=== PATIENT | male | born 1950 | race Caucasian/White ===

== ENCOUNTER 2020-07-30 04:21 | Inpatient (IN) ==
[2020-07-30] MEDS ORDERED: LORazepam 2 MG/ML VIAL IV ONE (04:34)
[2020-07-30] MEDS: LORazepam 2 MG/ML VIAL IV PRN ×2 (04:49→07:40)
[2020-07-30 05:14] LABS: Basophils # (Auto) 0.05 K/mcL (0.00-0.20); Basophils % (Auto) 0.6 % (0.0-2.0); Eosinophils # (Auto) 0.14 K/mcL (0.00-0.70); Eosinophils % (Auto) 1.5 % (0.0-7.0); Hematocrit 29.9 % (41.0-55.0); Hemoglobin 9.9 g/dL (13.5-16.5); Lymphocytes # (Auto) 1.02 K/mcL (1.50-4.80); Lymphocytes % (Auto) 11.2 % (15.0-49.0); Mean Cell Volume 104.5 fL (80.0-100.0); Mean Corpuscular HGB Conc 33.1 g/dL (31.0-36.0); Monocytes # (Auto) 1.24 K/mcL (0.10-0.90); Monocytes % (Auto) 13.6 % (1.0-12.0); Neutrophils % (Auto) 73.1 % (38.0-78.0); Platelet Count 242 K/mcL (140-440); RBC 2.86 M/mcL (4.50-5.90); Red Cell Distribution Width 15.4 % (11.5-14.5); WBC 9.1 K/mcL (4.5-11.0)
[2020-07-30 05:28] LABS: Alcohol, Blood < 10.0 mg/dL
[2020-07-30 05:32] LABS: ALT/SGPT 32 U/L (<40); AST/SGOT 34 U/L (<40); Albumin 3.8 gm/dL (3.2-5.2); Albumin/Globulin Ratio 0.9 (1.0-2.3); Alkaline Phosphatase 84 U/L (39-117); Bilirubin,Total 0.6 mg/dL (0.1-1.0); Blood Urea Nitrogen 13 mg/dL (8-23); Calcium 9.7 mg/dL (8.6-10.4); Carbon Dioxide 24 mmol/L (22-30); Chloride 101 mmol/L (96-108); Glomerular Filtration Rate 50; Glucose 116 mg/dL (70-105)
[2020-07-30] MEDS ORDERED: ACETAMINOPHEN 325 MG TABLET PO ONE (06:34)
[2020-07-30] MEDS ORDERED: 0.9 % SODIUM CHLORIDE 1,000 ML IV ONE (07:08)
--- NOTE | 2020-07-30 07:08 | Emergency Department Note ---
Alcohol HPI General Chief Complaint: Alcohol Stated Complaint: ETOH withdrawal Time Seen by Provider: 07/30/20 04:31 Source: EMS Mode of arrival: EMS Limitations: no limitations History of Present Illness HPI Narrative: Narrative: This pleasant 69-year-old male was brought by EMS because of feeling weak shaky and believing that he is going through alcohol withdrawals. He has not taken any Librium today. He is not very good at remembering where this came from and why he did not have more. He has a 50-year alcohol history. His last drink was 1 week ago. He is trying to stop drinking. He has been told by multiple people that he needs to stop and so he is considering this. He has had 2 falls. He has not been in inpatient treatments or seeing a detox counselor. He has not seen Dr. Ivey. He has felt the chills and shakes of withdrawals. No sweatiness or fevers. Related Data Home Medications Medication Instructions Recorded Confirmed apixaban 5 mg PO BID 12/04/19 05/23/20 buspirone 20 mg PO DAILY 12/04/19 05/23/20 carvedilol 25 mg PO BID 12/04/19 05/23/20 diltiazem HCl 60 mg PO DAILY 12/04/19 05/23/20 magnesium oxide 400 tab PO DAILY 12/04/19 05/23/20 rosuvastatin 10 mg PO HS 12/04/19 05/23/20 spironolactone 25 mg PO DAILY 12/04/19 05/23/20 Previous Rx's Medication Instructions Recorded albuterol sulfate 2 puff INH Q4HP PRN #1 inhaler 08/04/19 chlordiazepoxide HCl 50 mg PO Q6HP PRN #30 cap 07/20/20 ondansetron 4 mg PO Q6H PRN #30 tab 07/20/20 pantoprazole [Protonix] 40 mg PO BID #30 tab 07/20/20 Allergies Allergy/AdvReac Type Severity Reaction Status Date / Time No Known Drug Allergies Allergy Verified 07/30/20 04:27 Review of Systems ROS ROS Narrative: Narrative: 10 Systems Reviewed - negative except as mentioned above. PFSH Narrative Patient History Narrative: Narrative: Medical/Surgical/Family History All Active Problems (Updated 07/30/20 @ 09:41 by Shemar Durand DO) Syncope (Acute) Epistaxis (Acute) Macrocytosis (Acute) Alcoholism, chronic (Acute) Anemia (Acute) Macrocytosis (Acute) Chronic nausea (Acute) Abdominal pain (Acute) Alcohol withdrawal (Acute) Anemia, macrocytic (Acute) Alcohol withdrawal (Acute) Macrocytosis (Acute) Falls (Acute) Anemia in chronic illness (Acute) Acute pain of left foot (Acute) Chronic anticoagulation (Chronic) Congestive heart failure (Chronic) Atrial fibrillation (Chronic) Essential hypertension (Chronic) Anemia (Chronic) Shortness of breath (Chronic) First degree AV block (Chronic) Hyperlipidemia (Chronic) Overweight (BMI 25.0-29.9) (Chronic) Medical History (Updated 07/30/20 @ 09:41 by Shemar Durand DO) Abdominal pain (Resolved) Anemia (Chronic) Atrial fibrillation (Chronic) Paroxysmal; on Eliquis and diltiazem. Chronic anticoagulation (Chronic) Eliquis (apixaban) Congestive heart failure (Chronic) Essential hypertension (Chronic) Fall (Resolved) First degree AV block (Chronic) Hyperlipidemia (Chronic) Overweight (BMI 25.0-29.9) (Chronic) Pneumonia (Resolved) Shortness of breath (Chronic) Surgical History History of phacoemulsification of cataract of both eyes with intraocular lens implantation (Acute) History of total right hip replacement (Acute) Social History Smoking Status: Former smoker (Denied history of smoking 07/30/2020) Alcohol Intake Frequency: 2+ drinks per day (sometimes large amounts daily 07-19-2020. Admits to a half a liter of [place]ardon[place] per day 07/30/2020) Substance Use: does not use Exam Narrative Narrative: Narrative: General Limitations: no limitations General appearance: Present alert, in no apparent distress, nontoxic and other (Quite shaky.) Head Head: Present atraumatic and normocephalic Eye Eye: Present normal appearance, PERRL and EOMI ENT ENT: Present normal oropharynx and mucous membranes dry Neck Neck: Present trachea midline; Absent lymphadenopathy and thyromegaly Chest Chest: Present symmetric chest wall rise Respiratory Respiratory: Present normal lung sounds bilaterally; Absent respiratory distress, rales/crackles, wheezes, stridor, accessory muscle use and prolonged expiratory phase Cardiovascular Cardiovascular: Present regular rate and normal rhythm; Absent systolic murmur and diastolic murmur Adbominal Abdominal: Present soft; Absent distention, tenderness, guarding, rebound, rigidity, organomegaly and mass Extremities Extremities: Absent pedal edema, pretibial edema, calf tenderness and cyanosis Back Back: Absent CVA tenderness (R), CVA tenderness (L) and spinous process tenderness Neurological Neurological: Present alert and oriented X3 Psychiatric Psychiatric: Present serious and polite; Absent depressed, agitated, anxious and poor eye contact Skin Skin: Present warm (WNL) and dry; Absent cyanosis and pallor Course Vital Signs Vital signs: Vital Signs Pulse Rate 112 H 07/30/20 04:22 Respiratory Rate 20 07/30/20 04:22 Pulse Oximetry (%) 95 07/30/20 04:22 Temperature 99.8 F H 07/30/20 09:01 Pulse Rate 102 H 07/30/20 07:57 Respiratory Rate 21 07/30/20 10:01 Blood Pressure 109/71 07/30/20 10:01 Pulse Oximetry (%) 100 07/30/20 07:57 MDM MDM Narrative Medical decision making narrative: Narrative: 4:32 AM - interviewed and examined. Will do basic labs and provide lorazepam with CIWA following. 7:06 AM - labs include normal white count of 9.1 and similar anemia as to previous with macrocytosis. Lactic acid 1.2 Mildly low potassium of 3.2. Creatinine mildly elevated at 1.4, baseline previously 1.0-1.2. Glucose 116 Normal bili, LFTs, phosphatase. Alcohol level not detectable. B complex and multivitamin orally ordered. (Use of a banana bag is not any bit better and much more expensive than oral replacement of vitamins.) 7:12 AM - less shaky, feeling some better. Obviously is less shaky. But he is slow to move and weak asking for little help. With the elevated creatinine a normal saline liter was previously ordered. Nursing reported some bruises on the lower extremities and ankle. Patient has fallen several times. His home disposition needs to be further evaluated and or medical management of his withdrawal over the next several days. We attempted to call Dr. Ivey's office but no answer and no on-call. I will pass this on a change in shift to Dr. Echeverria for consideration of discussion with her and/or need for inpatient versus outpatient. Lab Data Result diagrams: 07/30/20 04:49 07/30/20 04:49 Labs: Lab Results 07/30/20 07/30/20 07/30/20 Range/Units 04:49 04:49 04:49 WBC 9.1 (4.5-11.0) K/mcL RBC 2.86 L (4.50-5.90) M/mcL Hgb 9.9 L (13.5-16.5) g/dL Hct 29.9 L (41.0-55.0) % MCV 104.5 H (80.0-100.0) fL MCH 34.6 H (26.0-34.0) pg MCHC 33.1 (31.0-36.0) g/dL RDW 15.4 H (11.5-14.5) % Plt Count 242 (140-440) K/mcL MPV 11.0 H (7.4-10.4) fL Neut % (Auto) 73.1 (38.0-78.0) % Lymph % (Auto) 11.2 L (15.0-49.0) % [place] % (Auto) 13.6 H (1.0-12.0) % Eos % (Auto) 1.5 (0.0-7.0) % Baso % (Auto) 0.6 (0.0-2.0) % Lymph # (Auto) 1.02 L (1.50-4.80) K/mcL [place] # (Auto) 1.24 H (0.10-0.90) K/mcL Eos # (Auto) 0.14 (0.00-0.70) K/mcL Baso # (Auto) 0.05 (0.00-0.20) K/mcL Absolute Neutrophils 6.64 (1.80-8.00) K/mcL VBG Lactic Acid 1.2 (0.5-2.0) mmol/L Sodium 136 (133-145) mmol/L Potassium 3.2 L (3.3-5.1) mmol/L Chloride 101 (96-108) mmol/L Carbon Dioxide 24 (22-30) mmol/L Anion Gap 11.0 (8.0-16.0) BUN 13 (8-23) mg/dL Creatinine 1.4 H (0.7-1.2) mg/dL GFR Calculation 50 Glucose 116 H (70-105) mg/dL Calcium 9.7 (8.6-10.4) mg/dL Total Bilirubin 0.6 (0.1-1.0) mg/dL AST 34 (<40) U/L ALT 32 (<40) U/L Alkaline Phosphatase 84 (39-117) U/L Total Protein 7.8 (5.9-8.4) gm/dL Albumin 3.8 (3.2-5.2) gm/dL Globulin 4.0 H (2.2-3.7) gm/dL Albumin/Globulin Ratio 0.9 L (1.0-2.3) Ethyl Alcohol (<0.010) gm/dL 07/30/20 Range/Units 04:49 WBC (4.5-11.0) K/mcL RBC (4.50-5.90) M/mcL Hgb (13.5-16.5) g/dL Hct (41.0-55.0) % MCV (80.0-100.0) fL MCH (26.0-34.0) pg MCHC (31.0-36.0) g/dL RDW (11.5-14.5) % Plt Count (140-440) K/mcL MPV (7.4-10.4) fL Neut % (Auto) (38.0-78.0) % Lymph % (Auto) (15.0-49.0) % [place] % (Auto) (1.0-12.0) % Eos % (Auto) (0.0-7.0) % Baso % (Auto) (0.0-2.0) % Lymph # (Auto) (1.50-4.80) K/mcL [place] # (Auto) (0.10-0.90) K/mcL Eos # (Auto) (0.00-0.70) K/mcL Baso # (Auto) (0.00-0.20) K/mcL Absolute Neutrophils (1.80-8.00) K/mcL VBG Lactic Acid (0.5-2.0) mmol/L Sodium (133-145) mmol/L Potassium (3.3-5.1) mmol/L Chloride (96-108) mmol/L Carbon Dioxide (22-30) mmol/L Anion Gap (8.0-16.0) BUN (8-23) mg/dL Creatinine (0.7-1.2) mg/dL GFR Calculation Glucose (70-105) mg/dL Calcium (8.6-10.4) mg/dL Total Bilirubin (0.1-1.0) mg/dL AST (<40) U/L ALT (<40) U/L Alkaline Phosphatase (39-117) U/L Total Protein (5.9-8.4) gm/dL Albumin (3.2-5.2) gm/dL Globulin (2.2-3.7) gm/dL Albumin/Globulin Ratio (1.0-2.3) Ethyl Alcohol 0.010 H (<0.010) gm/dL Discharge Plan Patient/Caregiver Discharge Instructions Pt seen by RECRUITMENT COORDINATOR/PA only: No Clinical Impression: Macrocytosis, Anemia in chronic illness, Acute pain of left foot Alcohol withdrawal Qualifiers: Complication of substance-induced condition: with unspecified complication Qualified Code(s): F10.239 - Alcohol dependence with withdrawal, unspecified Falls Qualifiers: Encounter type: initial encounter Qualified Code(s): W19.XXXA - Unspecified fall, initial encounter Patient Disposition: Still a Patient Follow up with: Marcy Carey MD [Primary Care Provider] - Prescriptions: No Action albuterol sulfate 1 PUFF inhaler 2 puff INH Q4HP PRN (Reason: short of breath, cough, wheeze) Qty: 1 RF: 0 carvedilol 25 MG tablet 25 mg PO BID RF: 0 spironolactone 25 MG tablet 25 mg PO DAILY RF: 0 buspirone 10 MG tablet 20 mg PO DAILY RF: 0 diltiazem HCl 180 MG tablet extended release 24 hr 60 mg PO DAILY RF: 0 rosuvastatin 10 MG tablet 10 mg PO HS RF: 0 apixaban 5 MG tablet 5 mg PO BID RF: 0 magnesium oxide 200 MG tablet 400 tab PO DAILY RF: 0 chlordiazepoxide HCl 25 mg capsule 50 mg PO Q6HP PRN (Reason: alcohol withdrawal) Qty: 30 RF: 0 pantoprazole [Protonix] 40 mg tablet,delayed release (DR/EC) 40 mg PO BID Qty: 30 RF: 0 ondansetron 4 mg tablet,disintegrating 4 mg PO Q6H PRN (Reason: nausea and vomiting) Qty: 30 RF: 0
[2020-07-30] MEDS ORDERED: MULTIVIT,THER IRON,CA,FA & MIN 1 TABLET PO ONE (08:33)
[2020-07-30] MEDS ORDERED: VITAMIN B COMPLEX 1 CAPSULE PO SCH (09:00)
[2020-07-30] MEDS ORDERED: PRENATAL VIT/IRON FUMARATE/FA 1 TAB TABLET PO SCH (09:00)
--- NOTE | 2020-07-30 09:38 | XRay Report ---
CLINICAL INFORMATION: swelling red pain midfoot dorsum; hx falls COMPARISON: None. FINDINGS: No fracture or other focal osseous abnormality identified. Severe first MTP and mild first through fifth interphalangeal degenerative change noted. Mild pes planus noted. There is moderate diffuse soft tissue swelling in the forefoot and midfoot. IMPRESSION: Moderate diffuse soft tissue swelling in the forefoot and midfoot likely represents cellulitis. No evidence of osteomyelitis. No fracture or other posttraumatic change Severe first MTP degeneration. Mild degenerative change first through fifth interphalangeal joints Interpreted and Authenticated by: Arpan Tsai 07/30/20
--- NOTE | 2020-07-30 11:41 | XRay Report ---
CLINICAL INFORMATION: Weakness COMPARISON: 08/14/2019 TECHNIQUE: Portable FINDINGS: The heart size, mediastinum and pulmonary vessels are unremarkable. The lungs are clear. There are no effusions. The bones and soft tissues are within normal limits. IMPRESSION: Normal chest. Interpreted and Authenticated by: Arpan Tsai 07/30/20
[2020-07-30 12:04] LABS: Appearance,Urine CLEAR (Clear); Bilirubin,Urine Negative (Negative); Color,Urine YELLOW; Culture Indicated,Urine No; Glucose,Urine (UA) Negative (Negative); Ketones,Urine Negative (Negative); Leukocyte Esterase,Urine Negative /ug (Negative); Mucus,Urine FEW /hpf; Nitrate,Urine Negative (Negative); Protein,Urine Negative (Negative); Specific Gravity,Urine 1.019 (1.000-1.035); Urine Blood Negative (Negative); Urine Hyaline Cast 3 /lph (0-2); Urine RBC 2 /hpf (0-3); Urine Squamous Epithelial Cell < 1 /hpf (0-4); Urine WBC 0 /hpf (0-4); Urobilinogen,Urine Negative
--- NOTE | 2020-07-30 13:04 | Cat Scan Report ---
CLINICAL INFORMATION: Confusion - decreased mental status COMPARISON: 07/19/2020 TECHNIQUE: 2.5 mm helical slices were obtained in the skull base to vertex. Following reconstruction, axial reformatted images were reviewed at bone and parenchymal windows. The exam was performed using radiation dose optimization techniques including, but not limited to, automated exposure control, adjustment of the mA and/or kV according to patient size and use of iterative reconstruction technique. FINDINGS: The ventricles, sulci, fissures, and cisterns are symmetrically enlarged compatible with mild age-related atrophy. No extra-axial fluid collections are identified. Mild patchy chronic ischemic changes, in the deep cerebral white matter, expected for age and stable.. There is no evidence of hemorrhage, mass effect, or edema. Bone windows show no osseous abnormality. IMPRESSION: Mild atrophy and chronic ischemic changes in the deep cerebral white matter - expected for age and stable.. Interpreted and Authenticated by: Arpan Tsai 07/30/20
--- NOTE | 2020-07-30 14:04 | Emergency Department Note ---
Alcohol HPI General Chief Complaint: Alcohol Stated Complaint: ETOH withdrawal Time Seen by Provider: 07/30/20 04:31 Source: EMS Mode of arrival: EMS Limitations: no limitations History of Present Illness HPI Narrative: Narrative: I took over care of this patient at [address] Durand Related Data Home Medications Medication Instructions Recorded Confirmed apixaban 5 mg PO BID 12/04/19 05/23/20 buspirone 20 mg PO DAILY 12/04/19 05/23/20 carvedilol 25 mg PO BID 12/04/19 05/23/20 diltiazem HCl 60 mg PO DAILY 12/04/19 05/23/20 magnesium oxide 400 tab PO DAILY 12/04/19 05/23/20 rosuvastatin 10 mg PO HS 12/04/19 05/23/20 spironolactone 25 mg PO DAILY 12/04/19 05/23/20 Previous Rx's Medication Instructions Recorded albuterol sulfate 2 puff INH Q4HP PRN #1 inhaler 08/04/19 chlordiazepoxide HCl 50 mg PO Q6HP PRN #30 cap 07/20/20 ondansetron 4 mg PO Q6H PRN #30 tab 07/20/20 pantoprazole [Protonix] 40 mg PO BID #30 tab 07/20/20 Allergies Allergy/AdvReac Type Severity Reaction Status Date / Time No Known Drug Allergies Allergy Verified 07/30/20 04:27 Review of Systems ROS ROS Narrative: Narrative: [facility] Narrative Patient History Narrative: Narrative: Medical/Surgical/Family History All Active Problems (Updated 07/30/20 @ 09:41 by Shemar Durand DO) Syncope (Acute) Epistaxis (Acute) Macrocytosis (Acute) Alcoholism, chronic (Acute) Anemia (Acute) Macrocytosis (Acute) Chronic nausea (Acute) Abdominal pain (Acute) Alcohol withdrawal (Acute) Anemia, macrocytic (Acute) Alcohol withdrawal (Acute) Macrocytosis (Acute) Falls (Acute) Anemia in chronic illness (Acute) Acute pain of left foot (Acute) Chronic anticoagulation (Chronic) Congestive heart failure (Chronic) Atrial fibrillation (Chronic) Essential hypertension (Chronic) Anemia (Chronic) Shortness of breath (Chronic) First degree AV block (Chronic) Hyperlipidemia (Chronic) Overweight (BMI 25.0-29.9) (Chronic) Medical History (Updated 07/30/20 @ 09:41 by Shemar Durand DO) Abdominal pain (Resolved) Anemia (Chronic) Atrial fibrillation (Chronic) Paroxysmal; on Eliquis and diltiazem. Chronic anticoagulation (Chronic) Eliquis (apixaban) Congestive heart failure (Chronic) Essential hypertension (Chronic) Fall (Resolved) First degree AV block (Chronic) Hyperlipidemia (Chronic) Overweight (BMI 25.0-29.9) (Chronic) Pneumonia (Resolved) Shortness of breath (Chronic) Surgical History History of phacoemulsification of cataract of both eyes with intraocular lens implantation (Acute) History of total right hip replacement (Acute) Social History Smoking Status: Former smoker (Denied history of smoking 07/30/2020) Alcohol Intake Frequency: 2+ drinks per day (sometimes large amounts daily 07-19-2020. Admits to a half a liter of [place] per day 07/30/2020) Substance Use: does not use Exam Narrative Narrative: Narrative: General Limitations: no limitations Course Vital Signs Vital signs: Vital Signs Pulse Rate 112 H 07/30/20 04:22 Respiratory Rate 20 07/30/20 04:22 Pulse Oximetry (%) 95 07/30/20 04:22 Temperature 99.8 F H 07/30/20 10:15 Pulse Rate 93 H 07/30/20 13:31 Respiratory Rate 19 07/30/20 13:31 Blood Pressure 138/83 07/30/20 13:31 Pulse Oximetry (%) 97 07/30/20 13:31 MDM MDM Narrative Medical decision making narrative: Narrative: I did discuss his case with Dr. Carey his primary and both Dr. Carey and the are anxious for him to be admitted and sent to a senior living. I then discussed the case with the hospitalist who will admit him to the hospital. Our director social service had evaluated him for admission first and felt he did qualify for admission. Lab Data Lab results reviewed: Yes I reviewed the patient's lab results. Lab results narrative: Lab work was unremarkable and Covid testing was negative Result diagrams: 07/30/20 04:49 07/30/20 04:49 Labs: Lab Results 07/30/20 07/30/20 07/30/20 Range/Units 04:49 04:49 04:49 WBC 9.1 (4.5-11.0) K/mcL RBC 2.86 L (4.50-5.90) M/mcL Hgb 9.9 L (13.5-16.5) g/dL Hct 29.9 L (41.0-55.0) % MCV 104.5 H (80.0-100.0) fL MCH 34.6 H (26.0-34.0) pg MCHC 33.1 (31.0-36.0) g/dL RDW 15.4 H (11.5-14.5) % Plt Count 242 (140-440) K/mcL MPV 11.0 H (7.4-10.4) fL Neut % (Auto) 73.1 (38.0-78.0) % Lymph % (Auto) 11.2 L (15.0-49.0) % [place] % (Auto) 13.6 H (1.0-12.0) % Eos % (Auto) 1.5 (0.0-7.0) % Baso % (Auto) 0.6 (0.0-2.0) % Lymph # (Auto) 1.02 L (1.50-4.80) K/mcL [place] # (Auto) 1.24 H (0.10-0.90) K/mcL Eos # (Auto) 0.14 (0.00-0.70) K/mcL Baso # (Auto) 0.05 (0.00-0.20) K/mcL Absolute Neutrophils 6.64 (1.80-8.00) K/mcL VBG Lactic Acid 1.2 (0.5-2.0) mmol/L Sodium 136 (133-145) mmol/L Potassium 3.2 L (3.3-5.1) mmol/L Chloride 101 (96-108) mmol/L Carbon Dioxide 24 (22-30) mmol/L Anion Gap 11.0 (8.0-16.0) BUN 13 (8-23) mg/dL Creatinine 1.4 H (0.7-1.2) mg/dL GFR Calculation 50 Glucose 116 H (70-105) mg/dL Calcium 9.7 (8.6-10.4) mg/dL Total Bilirubin 0.6 (0.1-1.0) mg/dL AST 34 (<40) U/L ALT 32 (<40) U/L Alkaline Phosphatase 84 (39-117) U/L Total Protein 7.8 (5.9-8.4) gm/dL Albumin 3.8 (3.2-5.2) gm/dL Globulin 4.0 H (2.2-3.7) gm/dL Albumin/Globulin Ratio 0.9 L (1.0-2.3) Urine Color Urine Appearance (Clear) Urine pH (5.0-9.0) Ur Specific [place] (1.000-1.035) Urine Protein (Negative) mg/dL Urine Glucose (UA) (Negative) mg/dL Urine Ketones (Negative) mg/dL Urine Occult Blood (Negative) mg/dL Urine Nitrate (Negative) Urine Bilirubin (Negative) mg/dL Urine Urobilinogen mg/dL Ur Leukocyte Esterase (Negative) /ug Urine RBC (0-3) /hpf Urine WBC (0-4) /hpf Ur Squamous Epith Cells (0-4) /hpf Urine Bacteria (0) /hpf Hyaline Casts (0-2) /lph Urine Mucus (None) /hpf Ur Culture Indicated? Ethyl Alcohol (<0.010) gm/dL 07/30/20 07/30/20 Range/Units 04:49 10:20 WBC (4.5-11.0) K/mcL RBC (4.50-5.90) M/mcL Hgb (13.5-16.5) g/dL Hct (41.0-55.0) % MCV (80.0-100.0) fL MCH (26.0-34.0) pg MCHC (31.0-36.0) g/dL RDW (11.5-14.5) % Plt Count (140-440) K/mcL MPV (7.4-10.4) fL Neut % (Auto) (38.0-78.0) % Lymph % (Auto) (15.0-49.0) % [place] % (Auto) (1.0-12.0) % Eos % (Auto) (0.0-7.0) % Baso % (Auto) (0.0-2.0) % Lymph # (Auto) (1.50-4.80) K/mcL [place] # (Auto) (0.10-0.90) K/mcL Eos # (Auto) (0.00-0.70) K/mcL Baso # (Auto) (0.00-0.20) K/mcL Absolute Neutrophils (1.80-8.00) K/mcL VBG Lactic Acid (0.5-2.0) mmol/L Sodium (133-145) mmol/L Potassium (3.3-5.1) mmol/L Chloride (96-108) mmol/L Carbon Dioxide (22-30) mmol/L Anion Gap (8.0-16.0) BUN (8-23) mg/dL Creatinine (0.7-1.2) mg/dL GFR Calculation Glucose (70-105) mg/dL Calcium (8.6-10.4) mg/dL Total Bilirubin (0.1-1.0) mg/dL AST (<40) U/L ALT (<40) U/L Alkaline Phosphatase (39-117) U/L Total Protein (5.9-8.4) gm/dL Albumin (3.2-5.2) gm/dL Globulin (2.2-3.7) gm/dL Albumin/Globulin Ratio (1.0-2.3) Urine Color Yellow Urine Appearance Clear (Clear) Urine pH 5.0 (5.0-9.0) Ur Specific [place] 1.019 (1.000-1.035) Urine Protein Negative (Negative) mg/dL Urine Glucose (UA) Negative (Negative) mg/dL Urine Ketones Negative (Negative) mg/dL Urine Occult Blood Negative (Negative) mg/dL Urine Nitrate Negative (Negative) Urine Bilirubin Negative (Negative) mg/dL Urine Urobilinogen Negative mg/dL Ur Leukocyte Esterase Negative (Negative) /ug Urine RBC 2 (0-3) /hpf Urine WBC 0 (0-4) /hpf Ur Squamous Epith Cells < 1 (0-4) /hpf Urine Bacteria None (0) /hpf Hyaline Casts 3 H (0-2) /lph Urine Mucus Few A (None) /hpf Ur Culture Indicated? No Ethyl Alcohol 0.010 H (<0.010) gm/dL Radiology Data Radiology results reviewed: Yes I reviewed the patient's radiology results. Radiology results narrative: Chest x-ray was negative CT scan of head shows age- related atrophy and chronic ischemic change Discharge Plan Patient/Caregiver Discharge Instructions Pt seen by ASSEMBLER CARDS AND ANNOUNCEMENTS/PA only: No Clinical Impression: Alcohol withdrawal, Macrocytosis, Falls, Anemia in chronic illness, Acute pain of left foot Patient Disposition: er [facility] Follow up with: Marcy Carey MD [Primary Care Provider] - Prescriptions: No Action albuterol sulfate 1 PUFF inhaler 2 puff INH Q4HP PRN (Reason: short of breath, cough, wheeze) Qty: 1 RF: 0 carvedilol 25 MG tablet 25 mg PO BID RF: 0 spironolactone 25 MG tablet 25 mg PO DAILY RF: 0 buspirone 10 MG tablet 20 mg PO DAILY RF: 0 diltiazem HCl 180 MG tablet extended release 24 hr 60 mg PO DAILY RF: 0 rosuvastatin 10 MG tablet 10 mg PO HS RF: 0 apixaban 5 MG tablet 5 mg PO BID RF: 0 magnesium oxide 200 MG tablet 400 tab PO DAILY RF: 0 chlordiazepoxide HCl 25 mg capsule 50 mg PO Q6HP PRN (Reason: alcohol withdrawal) Qty: 30 RF: 0 pantoprazole [Protonix] 40 mg tablet,delayed release (DR/EC) 40 mg PO BID Qty: 30 RF: 0 ondansetron 4 mg tablet,disintegrating 4 mg PO Q6H PRN (Reason: nausea and vomiting) Qty: 30 RF: 0
--- NOTE | 2020-07-30 14:24 | Internal Med History&Physical ---
HPI History of Present Illness Patient information: Note initiated : 07/30/20 at 2:24 pm Service Date, if different from initiated Date: [] Patient: José Manuel Centeno 69 y/o M admitted on for ETOH Withdrawal. Chief Complaint: [generalized weakness and falls] History of present illness: Mr. Centeno is a 69 year old male with a history of hypertension, afib (on eliquis), congestive heart failure, alcohol use disorder who presents to the ED for generalized weakness and recent falls in the setting of alcohol withdrawal. The patient recently injured his left foot but doesn't remember how. No acute fracture identified on xray. CT head was negative for acute changes. The patient was recently started on librium to help with alcohol withdrawal symptoms. In the ED the patient is too weak to get out of bed. Per report from the ED doc his family have been trying to get the patient into a SNF. Constitutional Constitutional: Present lethargy; Absent chills and fever(s) Cardiovascular Cardiovascular: Absent chest pain and chest pain with activity Respiratory Respiratory: Absent cough and dyspnea on exertion Gastrointestinal Gastrointestinal: Absent abdominal pain Musculoskeletal Additional comments: left foot pain Integumentary Integumentary: Absent new lesions Neurological Neurological: Present abnormal gait Psychiatric Additional comments: feels like he is withdrawaling from alcohol PFSH PFSH All Active Problems (Updated 07/30/20 @ 09:41 by Shemar Durand DO) Syncope (Acute) Epistaxis (Acute) Macrocytosis (Acute) Alcoholism, chronic (Acute) Anemia (Acute) Macrocytosis (Acute) Chronic nausea (Acute) Abdominal pain (Acute) Alcohol withdrawal (Acute) Anemia, macrocytic (Acute) Alcohol withdrawal (Acute) Macrocytosis (Acute) Falls (Acute) Anemia in chronic illness (Acute) Acute pain of left foot (Acute) Chronic anticoagulation (Chronic) Congestive heart failure (Chronic) Atrial fibrillation (Chronic) Essential hypertension (Chronic) Anemia (Chronic) Shortness of breath (Chronic) First degree AV block (Chronic) Hyperlipidemia (Chronic) Overweight (BMI 25.0-29.9) (Chronic) Medical History (Updated 07/30/20 @ 09:41 by Shemar Durand DO) Abdominal pain (Resolved) Anemia (Chronic) Atrial fibrillation (Chronic) Paroxysmal; on Eliquis and diltiazem. Chronic anticoagulation (Chronic) Eliquis (apixaban) Congestive heart failure (Chronic) Essential hypertension (Chronic) Fall (Resolved) First degree AV block (Chronic) Hyperlipidemia (Chronic) Overweight (BMI 25.0-29.9) (Chronic) Pneumonia (Resolved) Shortness of breath (Chronic) Surgical History History of phacoemulsification of cataract of both eyes with intraocular lens implantation (Acute) History of total right hip replacement (Acute) Social History smoking status: Former smoker (Denied history of smoking 07/30/2020) alcohol intake frequency: 2+ drinks per day (sometimes large amounts daily 07-19-2020. Admits to a half a liter of [place] per day 07/30/2020) substance use type: does not use MEDS/ALLERGIES Home Medications and Allergies Home Medications Medication Instructions Recorded Confirmed Type albuterol sulfate 2 puff INH Q4HP PRN #1 inhaler 08/04/19 05/23/20 Rx apixaban 5 mg PO BID 12/04/19 07/30/20 History buspirone 20 mg PO QAM 12/04/19 07/30/20 History carvedilol 25 mg PO BID 12/04/19 07/30/20 History magnesium oxide 400 tab PO DAILY 12/04/19 07/30/20 History rosuvastatin 10 mg PO HS 12/04/19 07/30/20 History spironolactone 25 mg PO DAILY 12/04/19 07/30/20 History chlordiazepoxide HCl 50 mg PO Q6HP PRN #30 cap 07/20/20 07/30/20 Rx ondansetron 4 mg PO Q6H PRN #30 tab 07/20/20 07/30/20 Rx diltiazem HCl 60 mg PO DAILY 07/30/20 07/30/20 History omeprazole 40 mg PO BID 07/30/20 07/30/20 History Allergies Allergy/AdvReac Type Severity Reaction Status Date / Time No Known Drug Allergies Allergy Verified 07/30/20 04:27 EXAM Constitutional Vitals: Temp Pulse Resp BP Pulse Ox 99.8 F H 93 H 19 138/83 97 07/30/20 10:15 07/30/20 13:31 07/30/20 13:31 07/30/20 13:31 07/30/20 13:31 Head Head exam: Present atraumatic and normal inspection Eye Eye exam: Present normal appearance; Absent scleral icterus Neck Neck exam: Present full ROM; Absent lymphadenopathy and tenderness Respiratory Respiratory exam: Absent accessory muscle use and respiratory distress Cardiovascular Cardiovascular exam: Present normal rate and rhythm GI/Abdominal GI/Abdominal exam: Present soft; Absent tenderness Extremities Exam Additional comments: Left foot edema and tenderness to palpation. Neurological Exam Neurological exam: Present alert and CN II-XII intact Psychiatric Psychiatric exam: Absent agitated and anxious Skin Skin exam: Present normal color and warm DATA Data Completed and Pending Labs: Labs from last 24 hours 07/30/20 07/30/20 07/30/20 10:20 04:49 04:49 WBC RBC Hgb Hct MCV MCH MCHC RDW Plt Count MPV Neut % (Auto) Lymph % (Auto) [place] % (Auto) Eos % (Auto) Baso % (Auto) Lymph # (Auto) [place] # (Auto) Eos # (Auto) Baso # (Auto) Absolute Neutrophils VBG Lactic Acid Sodium Potassium Chloride Carbon Dioxide Anion Gap BUN Creatinine GFR Calculation Glucose Calcium Magnesium 1.7 Total Bilirubin AST ALT Alkaline Phosphatase Total Protein Albumin Globulin Albumin/Globulin Ratio Urine Color Yellow Urine Appearance Clear Urine pH 5.0 Ur Specific [place] 1.019 Urine Protein Negative Urine Glucose (UA) Negative Urine Ketones Negative Urine Occult Blood Negative Urine Nitrate Negative Urine Bilirubin Negative Urine Urobilinogen Negative Ur Leukocyte Esterase Negative Urine RBC 2 Urine WBC 0 Ur Squamous Epith Cells < 1 Urine Bacteria None Hyaline Casts 3 H Urine Mucus Few A Ur Culture Indicated? No Ethyl Alcohol 0.010 H 07/30/20 07/30/20 07/30/20 04:49 04:49 04:49 WBC 9.1 RBC 2.86 L Hgb 9.9 L Hct 29.9 L MCV 104.5 H MCH 34.6 H MCHC 33.1 RDW 15.4 H Plt Count 242 MPV 11.0 H Neut % (Auto) 73.1 Lymph % (Auto) 11.2 L [place] % (Auto) 13.6 H Eos % (Auto) 1.5 Baso % (Auto) 0.6 Lymph # (Auto) 1.02 L [place] # (Auto) 1.24 H Eos # (Auto) 0.14 Baso # (Auto) 0.05 Absolute Neutrophils 6.64 VBG Lactic Acid 1.2 Sodium 136 Potassium 3.2 L Chloride 101 Carbon Dioxide 24 Anion Gap 11.0 BUN 13 Creatinine 1.4 H GFR Calculation 50 Glucose 116 H Calcium 9.7 Magnesium Total Bilirubin 0.6 AST 34 ALT 32 Alkaline Phosphatase 84 Total Protein 7.8 Albumin 3.8 Globulin 4.0 H Albumin/Globulin Ratio 0.9 L Urine Color Urine Appearance Urine pH Ur Specific [place] Urine Protein Urine Glucose (UA) Urine Ketones Urine Occult Blood Urine Nitrate Urine Bilirubin Urine Urobilinogen Ur Leukocyte Esterase Urine RBC Urine WBC Ur Squamous Epith Cells Urine Bacteria Hyaline Casts Urine Mucus Ur Culture Indicated? 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 He was found to be in alcohol withdrawal and generally weak. The patient recently fell and injured his left foot-no acute fractures seen on xray. He does not recall how he injured his foot. CT head in the ED did not show any acute changes. The patient also had an acute kidney injury. #Acute kidney injury-likely prerenal #Alcohol withdrawal #Left foot injury w/ edema-no acute fracture on xray #Severe generalized weakness #Chronic macrocytic anemia-likely d/t alcohol use #Paroxysmal atrial fibrillation-currently in sinus rhythm #Congestive heart failure-stable, unknown LV EF #Hypokalemia #Hypertension PLAN -IV fluid, follow renal function -CIWA protocol, ativan PRN, vitamin supplementation, high dose thiamine IV -follow and replace electrolytes a needed -monitor left foot for improvement, if no improvement consider MRI -Tylenol PRN -resume home meds when doses confirmed Time Spent With Patient Time: Total time spent is greater than 50% in coordination of care (as documented) at patient's floor/unit and/or counseling patient:
[2020-07-30] MEDS ORDERED: 0.9 % SODIUM CHLORIDE 500 ML IV ONE (14:45)
[2020-07-30] MEDS ORDERED: ONDANSETRON 4 MG/2 ML VIAL IV PRN (15:20)
[2020-07-30] MEDS: THIAMINE 300 MG in 0.9 % SODIUM CHLORIDE 50 ML IV SCH ×2 (16:22→20:19)
[2020-07-30] MEDS ORDERED: POTASSIUM CHLORIDE 20 MEQ TABLET PO ONE (18:24)
[2020-07-30] MEDS: DOCUSATE SODIUM 100 MG CAPSULE PO SCH (20:15)
[2020-07-30] MEDS: SENNOSIDES 1 TABLET PO SCH (20:15)
[2020-07-30] MEDS: 0.9 % SODIUM CHLORIDE 10 ML SYRINGE IV SCH ×2 (20:15→20:19)
[2020-07-30] MEDS ORDERED: 0.9 % SODIUM CHLORIDE 10 ML SYRINGE IV SCH (22:00)
[2020-07-30] MEDS: LORazepam 1 MG TABLET PO PRN (23:06)
[2020-07-31] MEDS: 0.9 % SODIUM CHLORIDE 10 ML SYRINGE IV SCH ×3 (04:15→20:22)
[2020-07-31 06:11] LABS: Basophils # (Auto) 0.04 K/mcL (0.00-0.20); Basophils % (Auto) 0.5 % (0.0-2.0); Eosinophils # (Auto) 0.16 K/mcL (0.00-0.70); Hematocrit 27.9 % (41.0-55.0); Hemoglobin 9.2 g/dL (13.5-16.5); Lymphocytes # (Auto) 1.16 K/mcL (1.50-4.80); Lymphocytes % (Auto) 14.3 % (15.0-49.0); Mean Cell Volume 103.7 fL (80.0-100.0); Mean Platelet Volume 10.5 fL (7.4-10.4); Monocytes # (Auto) 0.86 K/mcL (0.10-0.90); Monocytes % (Auto) 10.6 % (1.0-12.0); Neutrophils % (Auto) 72.6 % (38.0-78.0); Platelet Count 241 K/mcL (140-440); RBC 2.69 M/mcL (4.50-5.90); WBC 8.1 K/mcL (4.5-11.0)
[2020-07-31 07:02] LABS: ALT/SGPT 25 U/L (<40); AST/SGOT 27 U/L (<40); Albumin 3.3 gm/dL (3.2-5.2); Albumin/Globulin Ratio 0.9 (1.0-2.3); Alkaline Phosphatase 81 U/L (39-117); Bilirubin,Direct 0.3 mg/dL (<0.3); Bilirubin,Total 0.6 mg/dL (0.1-1.0); Blood Urea Nitrogen 12 mg/dL (8-23); Calcium 8.9 mg/dL (8.6-10.4); Carbon Dioxide 21 mmol/L (22-30); Chloride 105 mmol/L (96-108); Globulin 3.7 gm/dL (2.2-3.7); Glomerular Filtration Rate 60; Glucose 105 mg/dL (70-105); Lactate Dehydrogenase 189 U/L (135-225); Phosphorous 2.4 mg/dL (2.5-4.5); Triglycerides 104 mg/dL (<150); Uric Acid 8.6 mg/dL (2.5-8.0)
[2020-07-31] MEDS: THIAMINE 300 MG in 0.9 % SODIUM CHLORIDE 50 ML IV SCH ×3 (08:34→20:21)
[2020-07-31] MEDS: DOCUSATE SODIUM 100 MG CAPSULE PO SCH ×2 (08:34→20:27)
[2020-07-31] MEDS: FOLIC ACID/VITAMIN B COMP W-C 1 TAB TABLET PO SCH (08:34)
[2020-07-31] MEDS ORDERED: MAGNESIUM SULFATE 2 GM/50 ML BAG IV ONE (09:59)
[2020-07-31] MEDS: LORazepam 1 MG TABLET PO PRN ×2 (12:29→20:26)
--- NOTE | 2020-07-31 18:42 | Internal Med Progress Note ---
SUBJECTIVE Subjective Patient information: Note initiated : 07/31/20 at 6:39 pm Service Date, if different from initiated Date: [] Patient: José Manuel Centeno 69 y/o M admitted on 07/30/20 for ETOH Withdrawal. Chief Complaint: [] Interval history: Mr. Centeno is a 69 year old male with a history of hypertension, afib (on eliquis), congestive heart failure, alcohol use disorder who presents to the ED for generalized weakness and recent falls in the setting of alcohol withdrawal. The patient recently injured his left foot but doesn't remember how. No acute fracture identified on xray. CT head was negative for acute changes. The patient was recently started on librium to help with alcohol withdrawal symptoms. In the ED the patient is too weak to get out of bed. Per report from the ED doc his family have been trying to get the patient into a SNF. 07/31 Mild withdrawal symptoms, the patient is severely physically deconditioned. Constitutional Vitals: Vital Signs Temp Pulse Resp BP Pulse Ox 99.0 F 103 H 20 137/78 97 07/31/20 12:00 07/31/20 12:00 07/31/20 12:00 07/31/20 12:00 07/31/20 12:00 Period Temp Pulse Resp BP Sys/[place] Pulse Ox Last 24 Hr 97.7 F-100.4 F 90-112 20-22 137-172/78-88 95-97 Intake and Output 07/31/20 07/31/20 07/31/20 05:59 13:59 21:59 Intake Total 250 403 53 Output Total 650 300 Balance -400 103 53 Weight 95.98 kg Patient Weight 08/01/20 05:59 Weight 95.98 kg Intake & Output: Intake & Output 07/31/20 07/31/20 07/31/20 05:59 13:59 21:59 Intake Total 250 403 53 Output Total 650 300 Balance -400 103 53 Weight 95.98 kg Intake: IV 103 53 Vitamin B1 300 mg In Sodium 53 53 Chloride 0.9% 50 ml @ 50 mls/hr IV TID [facility] Rx#:[id number] Oral 250 300 Output: Void Amount 650 300 Other: Meal Lunch Percent of Meal Consumed 100% Feeding Ability Needs Supervision Urine Appearance Clear Clear Urine Color Bright Yellow Light [place] Additional findings Additional findings: Head: Atraumatic, normal inspection. Eyes: normal appearance, no scleral icterus. Neck: full ROM Respiratory: no respiratory distress. Cardiovascular: normal rate and rhythm, S1, S2. GI/Abdominal: soft, nontender, no guarding. Extremities: full range of motion, nontender. Neurological: CN II-XII intact, intact motor, intact sensation. Psychiatric: depressed mood. Skin: warm, normal color OBJ DATA Labs CBC & Chem 7: 07/31/20 05:30 07/31/20 05:30 Labs: Abnormal Lab Results 07/31/20 07/31/20 07/30/20 05:30 05:30 10:20 RBC 2.69 L Hgb 9.2 L Hct 27.9 L MCV 103.7 H MCH 34.2 H RDW 15.0 H MPV 10.5 H Lymph % (Auto) 14.3 L [place] % (Auto) Lymph # (Auto) 1.16 L [place] # (Auto) Potassium Carbon Dioxide 21 L Creatinine Glucose Uric Acid 8.6 H Phosphorus 2.4 L Direct Bilirubin 0.3 H GGT 195 H Globulin Albumin/Globulin Ratio 0.9 L Hyaline Casts 3 H Urine Mucus Few A Ethyl Alcohol 07/30/20 07/30/20 07/30/20 04:49 04:49 04:49 RBC 2.86 L Hgb 9.9 L Hct 29.9 L MCV 104.5 H MCH 34.6 H RDW 15.4 H MPV 11.0 H Lymph % (Auto) 11.2 L [place] % (Auto) 13.6 H Lymph # (Auto) 1.02 L [place] # (Auto) 1.24 H Potassium 3.2 L Carbon Dioxide Creatinine 1.4 H Glucose 116 H Uric Acid Phosphorus Direct Bilirubin GGT Globulin 4.0 H Albumin/Globulin Ratio 0.9 L Hyaline Casts Urine Mucus Ethyl Alcohol 0.010 H Meds: Medications Acetaminophen (Tylenol) 650 mg PO Q6HP PRN; Protocol PRN Reason: Per Pain Protocol/Fever > 101 Docusate Sodium (Colace) 100 mg PO BID [facility] Last Admin: 07/31/20 08:34 Dose: 100 mg Documented by: Thiamine HCl 300 mg/ Sodium (Chloride) 53 mls @ 50 mls/hr IV TID [facility] Stop: 08/02/20 10:04 Last Infusion: 07/31/20 16:31 Dose: Infused Documented by: Lorazepam (Ativan) 2 mg PO Q2HP PRN PRN Reason: CIWA-A >6 or HR >100 Last Admin: 07/31/20 12:29 Dose: 2 mg Documented by: Multivit/Ca Carb/B Cmplx/FA/Prenat (Diatx) 1 tab PO DAILY [facility] Last Admin: 07/31/20 08:34 Dose: 1 tab Documented by: Ondansetron HCl (Zofran) 4 mg IV Q6HP PRN PRN Reason: Nausea And Vomiting Senna (Senokot) 2 tab PO HS [facility] Last Admin: 07/30/20 20:15 Dose: Not Given Documented by: Sodium Chloride (Saline Flush) 10 ml IV Q8 [facility] Last Admin: 07/31/20 15:00 Dose: 10 ml Documented by: A/P Narrative A/P Narrative: ASSESSMENT: 69 year old male with HTN, afib (on eliquis), congestive heart failure (LV EF unknown%), 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 He was found to be in alcohol withdrawal and generally weak. The patient recently fell and injured his left foot-no acute fractures seen on xray. He does not recall how he injured his foot. CT head in the ED did not show any acute changes. The patient also had an acute kidney injury. #Fevers of unknown cause -UA clean -chest xray clear -possible related to left foot edema -possibly viral vs other etiology #Alcohol withdrawal-mild #Acute kidney injury-resolving after IV fluid #Severe physical deconditioning-suspect related to chronic alcohol use #Left foot injury w/ edema-no acute fracture on xray #Chronic macrocytic anemia-likely d/t alcohol use #Paroxysmal atrial fibrillation-currently sinus rhythm, on eliquis #Congestive heart failure-stable, unknown LV EF #Hypokalemia-resolved #Hypertension-stable #Hyperlipidemia PLAN -CIWA protocol, ativan PRN, vitamin supplementation, high dose thiamine IV -blood cultures, CRP, procalcitonin, COVID PCR -low threshold to start abx -follow and replace electrolytes a needed -monitor H/H on eliquis -TSH -Vit B12, folate -Iron studies -Ammonia -Tylenol PRN -resume home meds except HCTZ, spironolactone, cardizem #PT/OT following -DVT prophylaxis: on eliquis. -Dispo: likely SNF Time Spent With Patient Time: Total time spent is greater than 50% in coordination of care (as documented) at patient's floor/unit and/or counseling patient: QUALITY VTE Deep Vein Thrombosis/Pulmonary Embolism Present on Admission: No
[2020-07-31] MEDS ORDERED: ALBUTEROL SULFATE 200 PUFF INHALER INH PRN (18:55)
[2020-07-31] MEDS: ACETAMINOPHEN 325 MG TABLET PO PRN (18:59)
[2020-07-31] MEDS ORDERED: ONDANSETRON 4 MG ODT TABLET PO PRN (19:08)
[2020-07-31] MEDS ORDERED: THIAMINE 100 MG/ML VIAL ONE (20:24)
[2020-07-31] MEDS: CARVEDILOL 12.5 MG TABLET PO SCH (20:27)
[2020-07-31] MEDS: OMEPRAZOLE 20 MG CAPSULE PO SCH (20:27)
[2020-07-31] MEDS: APIXABAN 5 MG TABLET PO SCH (20:28)
[2020-07-31] MEDS: ATORVASTATIN 20 MG TABLET PO SCH (20:28)
[2020-07-31] MEDS: SENNOSIDES 1 TABLET PO SCH (20:28)
[2020-07-31] MEDS ORDERED: ROSUVASTATIN 10 MG TABLET PO SCH (21:00)
[2020-08-01 00:51] LABS: CRP,High Sensitivity 171.9 mg/L (1.0-3.0)
[2020-08-01] MEDS ORDERED: VANCOMYCIN PER PHARMACY IV SCH (06:58)
[2020-08-01 07:59] LABS: Basophils # (Auto) 0.04 K/mcL (0.00-0.20); Basophils % (Auto) 0.4 % (0.0-2.0); Eosinophils # (Auto) 0.19 K/mcL (0.00-0.70); Eosinophils % (Auto) 2.1 % (0.0-7.0); Hematocrit 26.3 % (41.0-55.0); Hemoglobin 8.5 g/dL (13.5-16.5); Lymphocytes # (Auto) 0.97 K/mcL (1.50-4.80); Lymphocytes % (Auto) 10.7 % (15.0-49.0); Mean Cell Volume 104.8 fL (80.0-100.0); Mean Corpuscular HGB Conc 32.3 g/dL (31.0-36.0); Mean Platelet Volume 10.8 fL (7.4-10.4); Monocytes # (Auto) 0.91 K/mcL (0.10-0.90); Neutrophils % (Auto) 76.8 % (38.0-78.0); Platelet Count 275 K/mcL (140-440); RBC 2.51 M/mcL (4.50-5.90); Red Cell Distribution Width 15.2 % (11.5-14.5); WBC 9.1 K/mcL (4.5-11.0)
[2020-08-01 08:18] LABS: ALT/SGPT 21 U/L (<40); AST/SGOT 21 U/L (<40); Albumin/Globulin Ratio 0.8 (1.0-2.3); Alkaline Phosphatase 83 U/L (39-117); Bilirubin,Direct 0.3 mg/dL (<0.3); Bilirubin,Total 0.6 mg/dL (0.1-1.0); Blood Urea Nitrogen 14 mg/dL (8-23); Calcium 9.1 mg/dL (8.6-10.4); Carbon Dioxide 22 mmol/L (22-30); Chloride 105 mmol/L (96-108); Globulin 3.9 gm/dL (2.2-3.7); Glomerular Filtration Rate 60; Glucose 107 mg/dL (70-105); Lactate Dehydrogenase 183 U/L (135-225); Phosphorous 3.2 mg/dL (2.5-4.5); Triglycerides 106 mg/dL (<150)
[2020-08-01] MEDS ORDERED: LORazepam 2 MG/ML VIAL IV ONE (08:27)
[2020-08-01] MEDS: OMEPRAZOLE 20 MG CAPSULE PO SCH ×2 (08:28→17:07)
[2020-08-01] MEDS: busPIRone 5 MG TABLET PO SCH (08:28)
[2020-08-01] MEDS: DOCUSATE SODIUM 100 MG CAPSULE PO SCH ×2 (08:28→20:56)
[2020-08-01 08:29] LABS: Ferritin 189.2 ng/mL (30.0-400.0); Thyroid Stimulating Hormone 3.87 uIU/mL (0.27-5.01)
[2020-08-01] MEDS: CARVEDILOL 12.5 MG TABLET PO SCH ×2 (08:29→17:07)
[2020-08-01] MEDS: APIXABAN 5 MG TABLET PO SCH ×2 (08:29→20:56)
[2020-08-01] MEDS: 0.9 % SODIUM CHLORIDE 10 ML SYRINGE IV SCH ×3 (08:29→20:57)
[2020-08-01] MEDS: FOLIC ACID/VITAMIN B COMP W-C 1 TAB TABLET PO SCH (08:29)
[2020-08-01] MEDS: THIAMINE 300 MG in 0.9 % SODIUM CHLORIDE 50 ML IV SCH ×3 (09:22→20:56)
[2020-08-01] MEDS: VANCOMYCIN 1,500 MG in 0.9 % SODIUM CHLORIDE 500 ML IV SCH (10:54)
--- NOTE | 2020-08-01 11:41 | Internal Med Progress Note ---
SUBJECTIVE Subjective Patient information: Note initiated : 08/01/20 at 11:37 am Service Date, if different from initiated Date: [] Patient: José Manuel Centeno 69 y/o M admitted on 07/30/20 for ETOH Withdrawal. Chief Complaint: [] Interval history: Mr. Centeno is a 69 year old male with a history of hypertension, afib (on eliquis), congestive heart failure, alcohol use disorder who presents to the ED for generalized weakness and recent falls in the setting of alcohol withdrawal. The patient recently injured his left foot but doesn't remember how. No acute fracture identified on xray. CT head was negative for acute changes. The patient was recently started on librium to help with alcohol withdrawal symptoms. In the ED the patient is too weak to get out of bed. Per report from the ED doc his family have been trying to get the patient into a SNF. 07/31 Mild withdrawal symptoms, the patient is severely physically deconditioned. Constitutional Vitals: Vital Signs Temp Pulse Resp BP Pulse Ox 98.1 F 76 18 130/70 94 08/01/20 07:17 08/01/20 08:00 08/01/20 07:17 08/01/20 07:17 08/01/20 07:17 Period Temp Pulse Resp BP Sys/[place] Pulse Ox Last 24 Hr 98.1 F-101.2 F 75-110 18-24 120-151/67-88 94-100 Intake and Output 07/31/20 08/01/20 08/01/20 21:59 05:59 13:59 Intake Total 506 50 53 Output Total 225 200 Balance 281 -150 53 Weight 90.9 kg Intake & Output: Intake & Output 07/31/20 08/01/20 08/01/20 21:59 05:59 13:59 Intake Total 506 50 53 Output Total 225 200 Balance 281 -150 53 Weight 90.9 kg Intake: IV 106 53 Vitamin B1 300 mg In Sodium 106 53 Chloride 0.9% 50 ml @ 50 mls/hr IV TID [facility] Rx#:[id number] Oral 400 50 Output: Void Amount 225 200 Other: Urine Appearance Clear Clear Urine Color [place] Urine Odor Strong Additional findings Additional findings: Head: Atraumatic, normal inspection. Eyes: normal appearance, no scleral icterus. Neck: full ROM Respiratory: no respiratory distress. Cardiovascular: normal rate and rhythm, S1, S2. GI/Abdominal: soft, nontender, no guarding. Extremities: full range of motion but very weak, left foot caster warm and edematous. Neurological: CN II-XII intact, very weak but moves all commands Psychiatric: depressed mood, Skin: warm, normal color OBJ DATA Labs CBC & Chem 7: 08/01/20 06:01 08/01/20 06:01 Labs: Abnormal Lab Results 08/01/20 08/01/20 08/01/20 06:01 06:01 06:01 RBC Hgb Hct MCV MCH RDW MPV Lymph % (Auto) [place] % (Auto) Lymph # (Auto) [place] # (Auto) Potassium Carbon Dioxide Creatinine Glucose 107 H Uric Acid Phosphorus Iron 18 L TIBC 222 L Transferrin % Sat 8 L Direct Bilirubin 0.3 H GGT 174 H Ammonia 15 L C-React Prot High Sens Albumin 3.0 L Globulin 3.9 H Albumin/Globulin Ratio 0.8 L Vitamin B12 1411.0 H Procalcitonin Hyaline Casts Urine Mucus Ethyl Alcohol 08/01/20 07/31/20 07/31/20 06:01 19:25 19:25 RBC 2.51 L Hgb 8.5 L Hct 26.3 L MCV 104.8 H MCH RDW 15.2 H MPV 10.8 H Lymph % (Auto) 10.7 L [place] % (Auto) Lymph # (Auto) 0.97 L [place] # (Auto) 0.91 H Potassium Carbon Dioxide Creatinine Glucose Uric Acid Phosphorus Iron TIBC Transferrin % Sat Direct Bilirubin GGT Ammonia C-React Prot High Sens 171.9 H Albumin Globulin Albumin/Globulin Ratio Vitamin B12 Procalcitonin 0.27 H Hyaline Casts Urine Mucus Ethyl Alcohol 07/31/20 07/31/20 07/30/20 05:30 05:30 10:20 RBC 2.69 L Hgb 9.2 L Hct 27.9 L MCV 103.7 H MCH 34.2 H RDW 15.0 H MPV 10.5 H Lymph % (Auto) 14.3 L [place] % (Auto) Lymph # (Auto) 1.16 L [place] # (Auto) Potassium Carbon Dioxide 21 L Creatinine Glucose Uric Acid 8.6 H Phosphorus 2.4 L Iron TIBC Transferrin % Sat Direct Bilirubin 0.3 H GGT 195 H Ammonia C-React Prot High Sens Albumin Globulin Albumin/Globulin Ratio 0.9 L Vitamin B12 Procalcitonin Hyaline Casts 3 H Urine Mucus Few A Ethyl Alcohol 07/30/20 07/30/20 07/30/20 04:49 04:49 04:49 RBC 2.86 L Hgb 9.9 L Hct 29.9 L MCV 104.5 H MCH 34.6 H RDW 15.4 H MPV 11.0 H Lymph % (Auto) 11.2 L [place] % (Auto) 13.6 H Lymph # (Auto) 1.02 L [place] # (Auto) 1.24 H Potassium 3.2 L Carbon Dioxide Creatinine 1.4 H Glucose 116 H Uric Acid Phosphorus Iron TIBC Transferrin % Sat Direct Bilirubin GGT Ammonia C-React Prot High Sens Albumin Globulin 4.0 H Albumin/Globulin Ratio 0.9 L Vitamin B12 Procalcitonin Hyaline Casts Urine Mucus Ethyl Alcohol 0.010 H Meds: Medications Acetaminophen (Tylenol) 650 mg PO Q6HP PRN; Protocol PRN Reason: Per Pain Protocol/Fever > 101 Last Admin: 07/31/20 18:59 Dose: 650 mg Documented by: Albuterol Sulfate (Ventolin) 2 puff INH Q4HP PRN PRN Reason: short of breath, cough, wheeze Apixaban (Eliquis) 5 mg PO BID [facility] Last Admin: 08/01/20 08:29 Dose: 5 mg Documented by: Atorvastatin Calcium (Lipitor) 20 mg PO HS [facility] Last Admin: 07/31/20 20:28 Dose: 20 mg Documented by: Buspirone HCl (Buspar) 20 mg PO QAM [facility] Last Admin: 08/01/20 08:28 Dose: 20 mg Documented by: [facility] Last Admin: 08/01/20 08:29 Dose: 25 mg Documented by: Docusate Sodium (Colace) 100 mg PO BID [facility] Last Admin: 08/01/20 08:28 Dose: 100 mg Documented by: Thiamine HCl 300 mg/ Sodium (Chloride) 53 mls @ 50 mls/hr IV TID [facility] Stop: 08/02/20 10:04 Last Infusion: 08/01/20 10:54 Dose: Infused Documented by: Vancomycin HCl 1,500 mg/ (Sodium Chloride) 500 mls @ 333.3 mls/hr IV Q24H [facility] Last Admin: 08/01/20 10:54 Dose: 333.3 mls/hr Documented by: Lorazepam (Ativan) 2 mg PO Q2HP PRN PRN Reason: CIWA-A >6 or HR >100 Last Admin: 07/31/20 20:26 Dose: 2 mg Documented by: Multivit/Ca Carb/B Cmplx/FA/Prenat (Diatx) 1 tab PO DAILY [facility] Last Admin: 08/01/20 08:29 Dose: 1 tab Documented by: Omeprazole (Prilosec) 40 mg PO BIDAC [facility] Last Admin: 08/01/20 08:28 Dose: 40 mg Documented by: Ondansetron HCl (Zofran) 4 mg IV Q6HP PRN PRN Reason: Nausea And Vomiting Ondansetron HCl (Zofran Odt) 4 mg PO Q6HP PRN PRN Reason: nausea and vomiting Senna (Senokot) 2 tab PO HS [facility] Last Admin: 07/31/20 20:28 Dose: 2 tab Documented by: Sodium Chloride (Saline Flush) 10 ml IV Q8 [facility] Last Admin: 08/01/20 08:29 Dose: 10 ml Documented by: Vancomycin HCl (Vancomycin Per Pharmacy) 1 order IV UD [facility]; Protocol A/P Narrative A/P Narrative: ASSESSMENT: 69 year old male with HTN, afib (on eliquis), congestive heart failure (LV EF unknown%), 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 He was found to be in alcohol withdrawal and generally weak. The patient recently fell and injured his left foot-no acute fractures seen on xray. He does not recall how he injured his foot. CT head in the ED did not show any acute changes. The patient also had an acute kidney injury on admission that improved with IV fluid.. #Fevers of unknown cause -CRP 172 -UA clean -chest xray clear -possible related to left foot edema -possibly viral vs other etiology including malignancy #Severe physical deconditioning and generalized weakness-suspect related to chronic alcohol use but could also d/t an undiagnosed medical/neurologic disease #Alcohol withdrawal-mild #Acute kidney injury-resolving after IV fluid #Left foot injury w/ edema-no acute fracture on xray #Chronic macrocytic anemia-suspect d/t alcohol use but could be other medical disease #Paroxysmal atrial fibrillation-currently sinus rhythm, on eliquis #Congestive heart failure-stable, unknown LV EF #Hypokalemia-resolved #Hypertension-stable #Hyperlipidemia PLAN -CIWA protocol, ativan PRN, vitamin supplementation, high dose thiamine IV -Vancomycin IV per pharmacy -pending blood cultures -MRI foot pending -follow and replace electrolytes a needed -monitor H/H on eliquis -Tylenol PRN -home meds except HCTZ, spironolactone, cardizem -PT/OT following -DVT prophylaxis: on eliquis. -Dispo: likely SNF Time Spent With Patient Time: Total time spent is greater than 50% in coordination of care (as documented) at patient's floor/unit and/or counseling patient: QUALITY VTE Deep Vein Thrombosis/Pulmonary Embolism Present on Admission: No
--- NOTE | 2020-08-01 14:45 | Internal Med Progress Note ---
SUBJECTIVE Subjective Patient information: Note initiated : 08/01/20 at 2:35 pm Service Date, if different from initiated Date: [] Patient: José Manuel Centeno 69 y/o M admitted on 07/30/20 for ETOH Withdrawal. Chief Complaint: [] Interval history: Mr. Centeno is a 69 year old male with a history of hypertension, afib (on eliquis), congestive heart failure, alcohol use disorder who presents to the ED for generalized weakness and recent falls in the setting of alcohol withdrawal. The patient recently injured his left foot but doesn't remember how. No acute fracture identified on xray. CT head was negative for acute changes. The patient was recently started on librium to help with alcohol withdrawal symptoms. In the ED the patient is too weak to get out of bed. Per report from the ED doc his family have been trying to get the patient into a SNF. 07/31 Mild withdrawal symptoms, the patient is severely physically deconditioned. 08/01 fevers last night, left foot edema, mri pending. 08/02 Constitutional Vitals: Vital Signs Temp Pulse Resp BP Pulse Ox 98.1 F 76 18 130/70 94 08/01/20 12:00 08/01/20 12:00 08/01/20 12:00 08/01/20 12:00 08/01/20 12:00 Period Temp Pulse Resp BP Sys/Valencia Pulse Ox Last 24 Hr 98.1 F-101.2 F 75-110 18-24 120-151/67-88 94-100 Intake and Output 08/01/20 08/01/20 08/01/20 05:59 13:59 21:59 Intake Total 50 553 Output Total 200 Balance -150 553 Intake & Output: Intake & Output 08/01/20 08/01/20 08/01/20 05:59 13:59 21:59 Intake Total 50 553 Output Total 200 Balance -150 553 Intake: IV 553 Vitamin B1 300 mg In Sodium 53 Chloride 0.9% 50 ml @ 50 mls/hr IV TID [facility] Rx#:[id number] Vancomycin 1,500 mg In Sodium 500 Chloride 0.9% 500 ml @ 333.3 mls/hr IV Q24H [facility] Rx#: [id number] Oral 50 Output: Void Amount 200 Other: Urine Appearance Clear Urine Color [place] Exam: General: Alert, Awake, No acute Distress Eyes/N/T: EOMI, Head/Neck: neck supple, CV: RRR, No murmurs, Pulm: Clear b/l, no wheezing/rhonchi/rales Abd: soft, nontender, +BS x4 Ext: no clubbing/cyanosis. Left foot edema/tender/warm Neuro: Alert, no focal deficits, moves all extremities, Skin: warm/dry OBJ DATA Labs CBC & Chem 7: 08/01/20 06:01 08/01/20 06:01 Labs: Abnormal Lab Results 08/01/20 08/01/20 08/01/20 06:01 06:01 06:01 RBC Hgb Hct MCV MCH RDW MPV Lymph % (Auto) [place] % (Auto) Lymph # (Auto) [place] # (Auto) Potassium Carbon Dioxide Creatinine Glucose 107 H Uric Acid Phosphorus Iron 18 L TIBC 222 L Transferrin % Sat 8 L Direct Bilirubin 0.3 H GGT 174 H Ammonia 15 L C-React Prot High Sens Albumin 3.0 L Globulin 3.9 H Albumin/Globulin Ratio 0.8 L Vitamin B12 1411.0 H Procalcitonin Hyaline Casts Urine Mucus Ethyl Alcohol 08/01/20 07/31/20 07/31/20 06:01 19:25 19:25 RBC 2.51 L Hgb 8.5 L Hct 26.3 L MCV 104.8 H MCH RDW 15.2 H MPV 10.8 H Lymph % (Auto) 10.7 L [place] % (Auto) Lymph # (Auto) 0.97 L [place] # (Auto) 0.91 H Potassium Carbon Dioxide Creatinine Glucose Uric Acid Phosphorus Iron TIBC Transferrin % Sat Direct Bilirubin GGT Ammonia C-React Prot High Sens 171.9 H Albumin Globulin Albumin/Globulin Ratio Vitamin B12 Procalcitonin 0.27 H Hyaline Casts Urine Mucus Ethyl Alcohol 07/31/20 07/31/20 07/30/20 05:30 05:30 10:20 RBC 2.69 L Hgb 9.2 L Hct 27.9 L MCV 103.7 H MCH 34.2 H RDW 15.0 H MPV 10.5 H Lymph % (Auto) 14.3 L [place] % (Auto) Lymph # (Auto) 1.16 L [place] # (Auto) Potassium Carbon Dioxide 21 L Creatinine Glucose Uric Acid 8.6 H Phosphorus 2.4 L Iron TIBC Transferrin % Sat Direct Bilirubin 0.3 H GGT 195 H Ammonia C-React Prot High Sens Albumin Globulin Albumin/Globulin Ratio 0.9 L Vitamin B12 Procalcitonin Hyaline Casts 3 H Urine Mucus Few A Ethyl Alcohol 07/30/20 07/30/20 07/30/20 04:49 04:49 04:49 RBC 2.86 L Hgb 9.9 L Hct 29.9 L MCV 104.5 H MCH 34.6 H RDW 15.4 H MPV 11.0 H Lymph % (Auto) 11.2 L [place] % (Auto) 13.6 H Lymph # (Auto) 1.02 L [place] # (Auto) 1.24 H Potassium 3.2 L Carbon Dioxide Creatinine 1.4 H Glucose 116 H Uric Acid Phosphorus Iron TIBC Transferrin % Sat Direct Bilirubin GGT Ammonia C-React Prot High Sens Albumin Globulin 4.0 H Albumin/Globulin Ratio 0.9 L Vitamin B12 Procalcitonin Hyaline Casts Urine Mucus Ethyl Alcohol 0.010 H Meds: Medications Acetaminophen (Tylenol) 650 mg PO Q6HP PRN; Protocol PRN Reason: Per Pain Protocol/Fever > 101 Last Admin: 07/31/20 18:59 Dose: 650 mg Documented by: Albuterol Sulfate (Ventolin) 2 puff INH Q4HP PRN PRN Reason: short of breath, cough, wheeze Apixaban (Eliquis) 5 mg PO BID [facility] Last Admin: 08/01/20 08:29 Dose: 5 mg Documented by: Atorvastatin Calcium (Lipitor) 20 mg PO HS [facility] Last Admin: 07/31/20 20:28 Dose: 20 mg Documented by: Buspirone HCl (Buspar) 20 mg PO QAM [facility] Last Admin: 08/01/20 08:28 Dose: 20 mg Documented by: Carvedilol (Coreg) 25 mg PO BIDCC [facility] Last Admin: 08/01/20 08:29 Dose: 25 mg Documented by: Docusate Sodium (Colace) 100 mg PO BID [facility] Last Admin: 08/01/20 08:28 Dose: 100 mg Documented by: Thiamine HCl 300 mg/ Sodium (Chloride) 53 mls @ 50 mls/hr IV TID [facility] Stop: 08/02/20 10:04 Last Infusion: 08/01/20 10:54 Dose: Infused Documented by: Vancomycin HCl 1,500 mg/ (Sodium Chloride) 500 mls @ 333.3 mls/hr IV Q24H [facility] Last Infusion: 08/01/20 12:38 Dose: Infused Documented by: Lorazepam (Ativan) 2 mg PO Q2HP PRN PRN Reason: CIWA-A >6 or HR >100 Last Admin: 07/31/20 20:26 Dose: 2 mg Documented by: Multivit/Ca Carb/B Cmplx/FA/Prenat (Diatx) 1 tab PO DAILY [facility] Last Admin: 08/01/20 08:29 Dose: 1 tab Documented by: Omeprazole (Prilosec) 40 mg PO BIDAC [facility] Last Admin: 08/01/20 08:28 Dose: 40 mg Documented by: Ondansetron HCl (Zofran) 4 mg IV Q6HP PRN PRN Reason: Nausea And Vomiting Ondansetron HCl (Zofran Odt) 4 mg PO Q6HP PRN PRN Reason: nausea and vomiting Senna (Senokot) 2 tab PO HS [facility] Last Admin: 07/31/20 20:28 Dose: 2 tab Documented by: Sodium Chloride (Saline Flush) 10 ml IV Q8 [facility] Last Admin: 08/01/20 14:07 Dose: 10 ml Documented by: Vancomycin HCl (Vancomycin Per Pharmacy) 1 order IV UD [facility]; Protocol A/P Narrative A/P Narrative: A: #Fevers of unknown origin: -CRP 172 -UA clean / chest xray clear, covid neg, no leukocytosis -possible related to left foot edema -possibly viral vs other etiology including malignancy #Severe physical deconditioning/generalized weakness: suspect related to chronic alcohol use but could also d/t an undiagnosed medical/neurologic disease #Alcohol withdrawal: mild #HARJINDER on CKD II: resolving after IV fluid #Left foot injury w/edema: no acute fracture on xray #Chronic macrocytic anemia: suspect d/t alcohol use but could be other medical disease #Parox Afib: currently sinus rhythm, on eliquis #h/o CHF: unknown LV EF #Hypokalemia:resolved #HTN/HLD: *Anxiety: PLAN: -CIWA protocol, ativan PRN, vitamin supplementation, high dose thiamine IV -Vancomycin IV per pharmacy, pending blood cultures -MRI foot pending -follow and replace electrolytes a needed -monitor H/H on eliquis -Tylenol PRN -hold home HCTZ/spironolactone for harjinder -cont BB, cardizem held -PT/OT following -Dispo: likely SNF -ppx: on eliquis. Time Spent With Patient Time: Total time spent is greater than 50% in coordination of care (as documented) at patient's floor/unit and/or counseling patient: QUALITY VTE Deep Vein Thrombosis/Pulmonary Embolism Present on Admission: No
--- NOTE | 2020-08-01 16:24 | Magnetic Resonance Report ---
CLINICAL INFORMATION: left foot edema, possible cellulitis COMPARISON: Plain films 07/30/2020 TECHNIQUE: Axial T1-T2 proton-density sagittal proton-density T1 coronal proton density images were acquired. FINDINGS: No marrow signal abnormalities to suggest osteomyelitis. There is moderate degenerative change in the first MTP with moderate synovial fluid and joint capsule thickening. Large effusion is noted in the ankle mortise and small effusion the talocalcaneal joint. The remaining joint spaces are normal in width and alignment without arthritic change. There is marked diffuse cellulitis also myositis and fasciitis the plantar and dorsal fascia. No discrete fluid collection. There is moderate fluid within the tendon sheath of the flexor hallucis longus and brevis. Tendons are unremarkable. IMPRESSION: 1. No evidence of osteomyelitis. 2. Marked cellulitis, myositis and fasciitis throughout the foot. Most prominent in the midfoot. No evidence of discrete soft tissue abscess. 3. Large effusion in the ankle mortise. Small effusion the talocalcaneal joint. 4. Severe first MTP degeneration. Small amount of synovial fluid appreciated and capsule thickening. Gout is unlikely, but please correlate with uric acid levels. Interpreted and Authenticated by: Arpan Tsai 08/01/20
[2020-08-01] MEDS: PIPERACILLIN SODIUM/TAZOBACTAM 3.375 GM in DEXTROSE 5% IN WATER 50 ML IV SCH ×2 (18:08→23:34)
[2020-08-01] MEDS: ACETAMINOPHEN 325 MG TABLET PO PRN (19:35)
[2020-08-01 20:30] LABS: Creatine Kinase 40 U/L (24-195)
[2020-08-01] MEDS: SENNOSIDES 1 TABLET PO SCH (20:56)
[2020-08-01] MEDS: ATORVASTATIN 20 MG TABLET PO SCH (20:57)
[2020-08-02] MEDS: PIPERACILLIN SODIUM/TAZOBACTAM 3.375 GM in DEXTROSE 5% IN WATER 50 ML IV SCH ×4 (05:52→23:49)
[2020-08-02] MEDS: 0.9 % SODIUM CHLORIDE 10 ML SYRINGE IV SCH ×3 (05:53→21:02)
[2020-08-02] MEDS: OMEPRAZOLE 20 MG CAPSULE PO SCH ×2 (07:37→16:54)
[2020-08-02] MEDS: CARVEDILOL 12.5 MG TABLET PO SCH ×2 (07:37→16:55)
[2020-08-02 07:52] LABS: Basophils # (Auto) 0.05 K/mcL (0.00-0.20); Basophils % (Auto) 0.5 % (0.0-2.0); Eosinophils # (Auto) 0.19 K/mcL (0.00-0.70); Eosinophils % (Auto) 1.9 % (0.0-7.0); Hematocrit 25.4 % (41.0-55.0); Hemoglobin 8.2 g/dL (13.5-16.5); Lymphocytes % (Auto) 10.8 % (15.0-49.0); Mean Cell Volume 104.1 fL (80.0-100.0); Mean Corpuscular HGB Conc 32.3 g/dL (31.0-36.0); Monocytes # (Auto) 0.86 K/mcL (0.10-0.90); Monocytes % (Auto) 8.5 % (1.0-12.0); Neutrophils % (Auto) 78.3 % (38.0-78.0); Platelet Count 297 K/mcL (140-440); RBC 2.44 M/mcL (4.50-5.90); Red Cell Distribution Width 15.4 % (11.5-14.5); WBC 10.2 K/mcL (4.5-11.0)
--- NOTE | 2020-08-02 07:57 | Internal Med Progress Note ---
SUBJECTIVE Subjective Patient information: Note initiated : 08/02/20 at 7:51 am Service Date, if different from initiated Date: [] Patient: José Manuel Centeno 69 y/o M admitted on 07/30/20 for ETOH Withdrawal. Chief Complaint: [] Interval history: Mr. Centeno is a 69 year old male with a history of hypertension, afib (on eliquis), congestive heart failure, alcohol use disorder who presents to the ED for generalized weakness and recent falls in the setting of alcohol withdrawal. The patient recently injured his left foot but doesn't remember how. No acute fracture identified on xray. CT head was negative for acute changes. The patient was recently started on librium to help with alcohol withdrawal symptoms. In the ED the patient is too weak to get out of bed. Per report from the ED doc his family have been trying to get the patient into a SNF. 07/31 Mild withdrawal symptoms, the patient is severely physically deconditioned. 08/01 fevers last night, left foot edema, mri pending. 08/02 No fevers overnight. Looking a little better. MRI with cellulitis myositis fasciitis of the left foot. Discussed with podiatry who will evaluate. Clinic ally does not look like necrotizing fasciitis. Review of Systems: denies headache/fever/chills/nausea/vomiting/chest or abdominal pain/cough/dyspnea/diarrhea. Otherwise see above. Constitutional Vitals: Vital Signs Temp Pulse Resp BP Pulse Ox 98.4 F 71 20 145/78 94 08/02/20 06:53 08/02/20 06:53 08/02/20 06:53 08/02/20 06:53 08/02/20 06:53 Period Temp Pulse Resp BP Sys/Valencia Pulse Ox Last 24 Hr 97.9 F-99.4 F 71-77 16-28 119-145/63-78 92-95 Intake and Output 08/01/20 08/02/20 08/02/20 21:59 05:59 13:59 Intake Total 743 103 50 Output Total 225 250 Balance 518 -147 50 Weight 91.852 kg Intake & Output: Intake & Output 08/01/20 08/02/20 08/02/20 21:59 05:59 13:59 Intake Total 743 103 50 Output Total 225 250 Balance 518 -147 50 Weight 91.852 kg Intake: IV 103 103 50 Zosyn 3.375 gm In Dextrose 5% 50 50 50 in Water 50 ml @ 100 mls/hr IV Q6H [facility] Rx#:[id number] Vitamin B1 300 mg In Sodium 53 53 Chloride 0.9% 50 ml @ 50 mls/hr IV TID [facility] Rx#:[id number] Oral 640 0 Output: Void Amount 225 250 Other: Meal Dinner Percent of Meal Consumed 50% Feeding Ability Total Assistance Urine Appearance Clear Clear Urine Color Dark [place] Dark Yellow Stool Size Smear Stool Color Brown Stool Consistency Soft Exam: General: Awake, No acute Distress Eyes/N/T: EOMI, Head/Neck: neck supple, CV: RRR, No murmurs, Pulm: Clear b/l, no wheezing/rhonchi/rales Abd: soft, nontender, +BS x4 Ext: no clubbing/cyanosis. Left foot edema/nontender today Neuro: Alert, no focal deficits, moves all extremities, Skin: warm/dry OBJ DATA Labs CBC & Chem 7: 08/02/20 05:59 08/01/20 06:01 Labs: Abnormal Lab Results 08/01/20 08/01/20 08/01/20 06:01 06:01 06:01 RBC Hgb Hct MCV MCH RDW MPV Lymph % (Auto) Lymph # (Auto) [place] # (Auto) Carbon Dioxide Glucose Uric Acid Phosphorus Iron 18 L TIBC 222 L Transferrin % Sat 8 L Direct Bilirubin GGT Ammonia 15 L C-Reactive Protein 14.50 H C-React Prot High Sens Albumin Globulin Albumin/Globulin Ratio Vitamin B12 1411.0 H Procalcitonin Hyaline Casts Urine Mucus 08/01/20 08/01/20 07/31/20 06:01 06:01 19:25 RBC 2.51 L Hgb 8.5 L Hct 26.3 L MCV 104.8 H MCH RDW 15.2 H MPV 10.8 H Lymph % (Auto) 10.7 L Lymph # (Auto) 0.97 L [place] # (Auto) 0.91 H Carbon Dioxide Glucose 107 H Uric Acid Phosphorus Iron TIBC Transferrin % Sat Direct Bilirubin 0.3 H GGT 174 H Ammonia C-Reactive Protein C-React Prot High Sens Albumin 3.0 L Globulin 3.9 H Albumin/Globulin Ratio 0.8 L Vitamin B12 Procalcitonin 0.27 H Hyaline Casts Urine Mucus 07/31/20 07/31/20 07/31/20 19:25 05:30 05:30 RBC 2.69 L Hgb 9.2 L Hct 27.9 L MCV 103.7 H MCH 34.2 H RDW 15.0 H MPV 10.5 H Lymph % (Auto) 14.3 L Lymph # (Auto) 1.16 L [place] # (Auto) Carbon Dioxide 21 L Glucose Uric Acid 8.6 H Phosphorus 2.4 L Iron TIBC Transferrin % Sat Direct Bilirubin 0.3 H GGT 195 H Ammonia C-Reactive Protein C-React Prot High Sens 171.9 H Albumin Globulin Albumin/Globulin Ratio 0.9 L Vitamin B12 Procalcitonin Hyaline Casts Urine Mucus 07/30/20 10:20 RBC Hgb Hct MCV MCH RDW MPV Lymph % (Auto) Lymph # (Auto) [place] # (Auto) Carbon Dioxide Glucose Uric Acid Phosphorus Iron TIBC Transferrin % Sat Direct Bilirubin GGT Ammonia C-Reactive Protein C-React Prot High Sens Albumin Globulin Albumin/Globulin Ratio Vitamin B12 Procalcitonin Hyaline Casts 3 H Urine Mucus Few A Meds: Medications Acetaminophen (Tylenol) 650 mg PO Q6HP PRN; Protocol PRN Reason: Per Pain Protocol/Fever > 101 Last Admin: 08/01/20 19:35 Dose: 650 mg Documented by: Albuterol Sulfate (Ventolin) 2 puff INH Q4HP PRN PRN Reason: short of breath, cough, wheeze Apixaban (Eliquis) 5 mg PO BID [facility] Last Admin: 08/01/20 20:56 Dose: 5 mg Documented by: Atorvastatin Calcium (Lipitor) 20 mg PO HS [facility] Last Admin: 08/01/20 20:57 Dose: 20 mg Documented by: Buspirone HCl (Buspar) 20 mg PO QAM [facility] Last Admin: 08/01/20 08:28 Dose: 20 mg Documented by: [facility] ([facility]) [address] [facility] Last Admin: 08/02/20 07:37 Dose: 25 mg Documented by: Docusate Sodium (Colace) 100 mg PO BID [facility] Last Admin: 08/01/20 20:56 Dose: 100 mg Documented by: Thiamine HCl 300 mg/ Sodium (Chloride) 53 mls @ 50 mls/hr IV TID [facility] Stop: 08/02/20 10:04 Last Infusion: 08/01/20 22:08 Dose: Infused Documented by: Vancomycin HCl 1,500 mg/ (Sodium Chloride) 500 mls @ 333.3 mls/hr IV Q24H [facility] Last Infusion: 08/01/20 12:38 Dose: Infused Documented by: Piperacillin Sod/Tazobactam (Sod 3.375 gm/ Dextrose) 50 mls @ 100 mls/hr IV Q6H [facility]; Protocol Last Infusion: 08/02/20 06:30 Dose: Infused Documented by: Lorazepam (Ativan) 2 mg PO Q2HP PRN PRN Reason: CIWA-A >6 or HR >100 Last Admin: 07/31/20 20:26 Dose: 2 mg Documented by: Multivit/Ca Carb/B Cmplx/FA/Prenat (Diatx) 1 tab PO DAILY [facility] Last Admin: 08/01/20 08:29 Dose: 1 tab Documented by: Omeprazole (Prilosec) 40 mg PO BIDAC [facility] Last Admin: 08/02/20 07:37 Dose: 40 mg Documented by: Ondansetron HCl (Zofran) 4 mg IV Q6HP PRN PRN Reason: Nausea And Vomiting Ondansetron HCl (Zofran Odt) 4 mg PO Q6HP PRN PRN Reason: nausea and vomiting Senna (Senokot) 2 tab PO HS [facility] Last Admin: 08/01/20 20:56 Dose: 2 tab Documented by: Sodium Chloride (Saline Flush) 10 ml IV Q8 [facility] Last Admin: 08/02/20 05:53 Dose: 10 ml Documented by: Vancomycin HCl (Vancomycin Per Pharmacy) 1 order IV UD [facility]; Protocol A/P Narrative A/P Narrative: A: #Left foot cellulitis/myositis/fasciitis on MRI: -afebrile o/n, no leukocytosis/lactic acidosis/cpk/ast/blood cxs, etc that would lend towards nectrotizing fasc #Sepsis: 2/2 above #Severe physical deconditioning/generalized weakness: -suspect related to chronic alcohol use but could also infection contributing #Alcohol withdrawal: mild #HARJINDER on CKD II: resolving after IV fluid #Chronic macrocytic anemia: suspect d/t alcohol use but could be other medical disease #Parox Afib: currently sinus rhythm, on eliquis #h/o CHF: unknown LV EF #Hypokalemia:resolved #HTN/HLD: *Anxiety: PLAN: -Vanc/Zosyn -Podiatry consult -CIWA protocol, ativan PRN, vitamin supplementation, high dose thiamine IV -follow and replace electrolytes a needed -monitor H/H on eliquis -Tylenol PRN -hold home HCTZ/spironolactone for harjinder -cont BB, cardizem held -PT/OT following -Dispo: likely SNF -ppx: on eliquis. Time Spent With Patient Time: Total time spent is greater than 50% in coordination of care (as documented) at patient's floor/unit and/or counseling patient: QUALITY VTE Deep Vein Thrombosis/Pulmonary Embolism Present on Admission: No
[2020-08-02] MEDS: APIXABAN 5 MG TABLET PO SCH ×2 (08:11→21:01)
[2020-08-02] MEDS: FOLIC ACID/VITAMIN B COMP W-C 1 TAB TABLET PO SCH (08:11)
[2020-08-02] MEDS: DOCUSATE SODIUM 100 MG CAPSULE PO SCH ×2 (08:11→21:02)
[2020-08-02] MEDS: busPIRone 5 MG TABLET PO SCH (08:11)
[2020-08-02] MEDS: THIAMINE 300 MG in 0.9 % SODIUM CHLORIDE 50 ML IV SCH (09:26)
[2020-08-02] MEDS: VANCOMYCIN 1,500 MG in 0.9 % SODIUM CHLORIDE 500 ML IV SCH (10:29)
--- NOTE | 2020-08-02 10:46 | Orthopedic Consult Note ---
HPI Data of Consult Primary Care Provider: Marcy Carey Consult Narrative Patient Information: Note initiated : 08/02/20 at 10:46 am Service Date, if different from initiated Date: [] Patient: José Manuel Centeno 69 y/o M admitted on 07/30/20 for ETOH Withdrawal. Chief Complaint: [foot pain] Recurring left foot pain. He's been treated recently for alcohol withdrawal and is admitted for this primary issue. Both his feet are sore today on seeing the patient in room. He is not very communicative due to his altered mental status. He does complain of pain in both feet but the left seems to be hurting worse. cc:: CC: Rosendo Diggs MD [facility] All Active Problems (Updated 07/30/20 @ 09:41 by Shemar Durand DO) Syncope (Acute) Epistaxis (Acute) Macrocytosis (Acute) Alcoholism, chronic (Acute) Anemia (Acute) Macrocytosis (Acute) Chronic nausea (Acute) Abdominal pain (Acute) Alcohol withdrawal (Acute) Anemia, macrocytic (Acute) Alcohol withdrawal (Acute) Macrocytosis (Acute) Falls (Acute) Anemia in chronic illness (Acute) Acute pain of left foot (Acute) Chronic anticoagulation (Chronic) Congestive heart failure (Chronic) Atrial fibrillation (Chronic) Essential hypertension (Chronic) Anemia (Chronic) Shortness of breath (Chronic) First degree AV block (Chronic) Hyperlipidemia (Chronic) Overweight (BMI 25.0-29.9) (Chronic) Medical History (Updated 07/30/20 @ 09:41 by Shemar Durand DO) Abdominal pain (Resolved) Anemia (Chronic) Atrial fibrillation (Chronic) Paroxysmal; on Eliquis and diltiazem. Chronic anticoagulation (Chronic) Eliquis (apixaban) Congestive heart failure (Chronic) Essential hypertension (Chronic) Fall (Resolved) First degree AV block (Chronic) Hyperlipidemia (Chronic) Overweight (BMI 25.0-29.9) (Chronic) Pneumonia (Resolved) Shortness of breath (Chronic) Surgical History History of phacoemulsification of cataract of both eyes with intraocular lens implantation (Acute) History of total right hip replacement (Acute) Social History smoking status: Former smoker alcohol intake frequency: 2+ drinks per day (sometimes large amounts daily 07-19-2020. Admits to a half a liter of Ch[place] per day 07/30/2020) substance use type: does not use MEDS/ALLERGIES Home Medications and Allergies Home Medications Medication Instructions Recorded Confirmed Type albuterol sulfate 2 puff INH Q4HP PRN #1 inhaler 08/04/19 07/30/20 Rx apixaban 5 mg PO BID 12/04/19 07/30/20 History buspirone 20 mg PO QAM 12/04/19 07/30/20 History carvedilol 25 mg PO BID 12/04/19 07/30/20 History magnesium oxide 400 tab PO DAILY 12/04/19 07/30/20 History rosuvastatin 10 mg PO HS 12/04/19 07/30/20 History spironolactone 25 mg PO DAILY 12/04/19 07/30/20 History chlordiazepoxide HCl 50 mg PO Q6HP PRN #30 cap 07/20/20 07/30/20 Rx ondansetron 4 mg PO Q6H PRN #30 tab 07/20/20 07/30/20 Rx diltiazem HCl 60 mg PO DAILY 07/30/20 07/30/20 History omeprazole 40 mg PO BID 07/30/20 07/30/20 History Allergies Allergy/AdvReac Type Severity Reaction Status Date / Time No Known Drug Allergies Allergy Verified 07/30/20 04:27 Physical Examination Ankle & Foot bilateral: Ankle appearance: swelling and erythema Foot appearance: swelling and erythema Foot swelling: dorsal, plantar, medial, lateral and toes Tenderness with palpation: plantar foot and medial foot Ankle pain worse with weight bearing: Yes Ankle pain relieved by non-weight bearing: Yes Foot pain worse with weight bearing: Yes Foot pain relieved by non-weight bearing: Yes A/P Time Spent With Patient Time: Thirty (30) minutes spent reviewing diagnostic tests, seeing patient, and documenting in the record Gout: bilateral foot Treatment: Indomethacin for anti-inflammation. Consider uric acid monitoring and Allopurinol after acute sx resolve.
[2020-08-02 12:23] LABS: ALT/SGPT 19 U/L (<40); AST/SGOT 31 U/L (<40); Albumin 3.3 gm/dL (3.2-5.2); Albumin/Globulin Ratio 0.9 (1.0-2.3); Alkaline Phosphatase 88 U/L (39-117); Bilirubin,Direct 0.2 mg/dL (<0.3); Bilirubin,Total 0.5 mg/dL (0.1-1.0); Blood Urea Nitrogen 18 mg/dL (8-23); Carbon Dioxide 19 mmol/L (22-30); Chloride 102 mmol/L (96-108); Globulin 3.6 gm/dL (2.2-3.7); Glomerular Filtration Rate 55; Glucose 111 mg/dL (70-105); Lactate Dehydrogenase 186 U/L (135-225); Phosphorous 3.1 mg/dL (2.5-4.5); Triglycerides 117 mg/dL (<150); Uric Acid 6.5 mg/dL (2.5-8.0)
[2020-08-02] MEDS: predniSONE 20 MG TABLET PO SCH (15:39)
[2020-08-02] MEDS: ATORVASTATIN 20 MG TABLET PO SCH (21:02)
[2020-08-02] MEDS: SENNOSIDES 1 TABLET PO SCH (21:02)
[2020-08-03] MEDS: 0.9 % SODIUM CHLORIDE 10 ML SYRINGE IV SCH ×3 (05:24→20:54)
[2020-08-03] MEDS: PIPERACILLIN SODIUM/TAZOBACTAM 3.375 GM in DEXTROSE 5% IN WATER 50 ML IV SCH ×3 (05:27→18:03)
[2020-08-03 06:29] LABS: Basophils # (Auto) 0.02 K/mcL (0.00-0.20); Basophils % (Auto) 0.2 % (0.0-2.0); Eosinophils # (Auto) 0 K/mcL (0.00-0.70); Eosinophils % (Auto) 0 % (0.0-7.0); Hematocrit 25.8 % (41.0-55.0); Hemoglobin 8.3 g/dL (13.5-16.5); Lymphocytes # (Auto) 0.79 K/mcL (1.50-4.80); Lymphocytes % (Auto) 6.7 % (15.0-49.0); Mean Corpuscular HGB Conc 32.2 g/dL (31.0-36.0); Mean Platelet Volume 10.9 fL (7.4-10.4); Monocytes # (Auto) 0.42 K/mcL (0.10-0.90); Monocytes % (Auto) 3.5 % (1.0-12.0); Neutrophils % (Auto) 89.6 % (38.0-78.0); Platelet Count 349 K/mcL (140-440); RBC 2.48 M/mcL (4.50-5.90); Red Cell Distribution Width 15.6 % (11.5-14.5); WBC 11.9 K/mcL (4.5-11.0)
[2020-08-03 07:23] LABS: ALT/SGPT 27 U/L (<40); AST/SGOT 45 U/L (<40); Albumin 3.2 gm/dL (3.2-5.2); Albumin/Globulin Ratio 0.8 (1.0-2.3); Alkaline Phosphatase 117 U/L (39-117); Bilirubin,Direct < 0.2 mg/dL (<0.3); Bilirubin,Total 0.4 mg/dL (0.1-1.0); Blood Urea Nitrogen 22 mg/dL (8-23); Carbon Dioxide 22 mmol/L (22-30); Chloride 104 mmol/L (96-108); Globulin 4.2 gm/dL (2.2-3.7); Glomerular Filtration Rate 50; Glucose 147 mg/dL (70-105); Lactate Dehydrogenase 241 U/L (135-225); Phosphorous 3.8 mg/dL (2.5-4.5); Triglycerides 116 mg/dL (<150); Uric Acid 5.3 mg/dL (2.5-8.0)
--- NOTE | 2020-08-03 08:05 | Internal Med Progress Note ---
SUBJECTIVE Subjective Patient information: Note initiated : 08/03/20 at 8:01 am Service Date, if different from initiated Date: [] Patient: José Manuel Centeno 69 y/o M admitted on 07/30/20 for ETOH Withdrawal. Chief Complaint: [] Interval history: Interval history: Mr. Centeno is a 69 year old male with a history of hypertension, afib (on eliquis), congestive heart failure, alcohol use disorder who presents to the ED for generalized weakness and recent falls in the setting of alcohol withdrawal. The patient recently injured his left foot but doesn't remember how. No acute fracture identified on xray. CT head was negative for acute changes. The patient was recently started on librium to help with alcohol withdrawal symptoms. In the ED the patient is too weak to get out of bed. Per report from the ED doc his family have been trying to get the patient into a SNF. 07/31 Mild withdrawal symptoms, the patient is severely physically deconditioned. 08/01 fevers last night, left foot edema, mri pending. 08/02 No fevers overnight. Looking a little better. MRI with cellulitis myositis fasciitis of the left foot. Discussed with podiatry who will evaluate. Clinically does not look like necrotizing fasciitis. 08/03 States he feels little better again. Denies foot pain. No other pains or complaints. Slept all right. Constitutional Vitals: Vital Signs Temp Pulse Resp BP Pulse Ox 97.6 F 65 18 142/85 96 08/03/20 06:43 08/03/20 06:43 08/03/20 06:43 08/03/20 06:43 08/03/20 06:43 Period Temp Pulse Resp BP Sys/Valencia Pulse Ox Last 24 Hr 97.6 F-98.8 F 65-80 16-20 119-155/70-89 94-96 Intake and Output 08/02/20 08/03/20 08/03/20 21:59 05:59 13:59 Intake Total 770 600 50 Output Total 850 Balance 770 -250 50 Weight 93.242 kg Intake & Output: Intake & Output 08/02/20 08/03/20 08/03/20 21:59 05:59 13:59 Intake Total 770 600 50 Output Total 850 Balance 770 -250 50 Weight 93.242 kg Intake: IV 50 50 50 Zosyn 3.375 gm In Dextrose 5% 50 50 50 in Water 50 ml @ 100 mls/hr IV Q6H [facility] Rx#:[id number] Oral 720 550 Output: Void Amount 850 Other: Meal Dinner Percent of Meal Consumed 100% Feeding Ability Total Assistance Urine Appearance Clear Urine Color Straw Exam: General: Awake, No acute Distress Eyes/N/T: EOMI, Head/Neck: neck supple, CV: RRR, No murmurs, Pulm: Clear b/l, no wheezing/rhonchi/rales Abd: soft, nontender, +BS x4 Ext: no clubbing/cyanosis. Left foot edema/nontender today Neuro: Alert, no focal deficits, moves all extremities, Skin: warm/dry OBJ DATA Labs CBC & Chem 7: 08/03/20 05:30 08/03/20 05:30 Labs: Abnormal Lab Results 08/03/20 08/03/20 08/03/20 05:30 05:30 05:30 WBC 11.9 H RBC 2.48 L Hgb 8.3 L Hct 25.8 L MCV 104.0 H RDW 15.6 H MPV 10.9 H Neut % (Auto) 89.6 H Lymph % (Auto) 6.7 L Lymph # (Auto) 0.79 L [place] # (Auto) Absolute Neutrophils 10.64 H ESR Carbon Dioxide Anion Gap Creatinine 1.4 H Glucose 147 H Iron TIBC Transferrin % Sat Direct Bilirubin GGT 175 H AST 45 H Ammonia Lactate Dehydrogenase 241 H C-Reactive Protein 14.10 H C-React Prot High Sens Albumin Globulin 4.2 H Albumin/Globulin Ratio 0.8 L Vitamin B12 Procalcitonin 0.24 H 08/02/20 08/02/20 08/02/20 05:59 05:59 05:59 WBC RBC Hgb Hct MCV RDW MPV Neut % (Auto) Lymph % (Auto) Lymph # (Auto) [place] # (Auto) Absolute Neutrophils ESR 122 H Carbon Dioxide Anion Gap Creatinine Glucose Iron TIBC Transferrin % Sat Direct Bilirubin GGT AST Ammonia Lactate Dehydrogenase C-Reactive Protein 17.40 H C-React Prot High Sens Albumin Globulin Albumin/Globulin Ratio Vitamin B12 Procalcitonin 0.33 H 08/02/20 08/02/20 08/01/20 05:59 05:59 06:01 WBC RBC 2.44 L Hgb 8.2 L Hct 25.4 L MCV 104.1 H RDW 15.4 H MPV 11.0 H Neut % (Auto) 78.3 H Lymph % (Auto) 10.8 L Lymph # (Auto) 1.10 L [place] # (Auto) Absolute Neutrophils ESR Carbon Dioxide 19 L Anion Gap 18.0 H Creatinine 1.3 H Glucose 111 H Iron TIBC Transferrin % Sat Direct Bilirubin GGT 168 H AST Ammonia Lactate Dehydrogenase C-Reactive Protein 14.50 H C-React Prot High Sens Albumin Globulin Albumin/Globulin Ratio 0.9 L Vitamin B12 Procalcitonin 08/01/20 08/01/20 08/01/20 06:01 06:01 06:01 WBC RBC Hgb Hct MCV RDW MPV Neut % (Auto) Lymph % (Auto) Lymph # (Auto) [place] # (Auto) Absolute Neutrophils ESR Carbon Dioxide Anion Gap Creatinine Glucose 107 H Iron 18 L TIBC 222 L Transferrin % Sat 8 L Direct Bilirubin 0.3 H GGT 174 H AST Ammonia 15 L Lactate Dehydrogenase C-Reactive Protein C-React Prot High Sens Albumin 3.0 L Globulin 3.9 H Albumin/Globulin Ratio 0.8 L Vitamin B12 1411.0 H Procalcitonin 08/01/20 07/31/20 07/31/20 06:01 19:25 19:25 WBC RBC 2.51 L Hgb 8.5 L Hct 26.3 L MCV 104.8 H RDW 15.2 H MPV 10.8 H Neut % (Auto) Lymph % (Auto) 10.7 L Lymph # (Auto) 0.97 L [place] # (Auto) 0.91 H Absolute Neutrophils ESR Carbon Dioxide Anion Gap Creatinine Glucose Iron TIBC Transferrin % Sat Direct Bilirubin GGT AST Ammonia Lactate Dehydrogenase C-Reactive Protein C-React Prot High Sens 171.9 H Albumin Globulin Albumin/Globulin Ratio Vitamin B12 Procalcitonin 0.27 H Meds: Medications Acetaminophen (Tylenol) 650 mg PO Q6HP PRN; Protocol PRN Reason: Per Pain Protocol/Fever > 101 Last Admin: 08/01/20 19:35 Dose: 650 mg Documented by: Albuterol Sulfate (Ventolin) 2 puff INH Q4HP PRN PRN Reason: short of breath, cough, wheeze Apixaban (Eliquis) 5 mg PO BID [facility] Last Admin: 08/02/20 21:01 Dose: 5 mg Documented by: Atorvastatin Calcium (Lipitor) 20 mg PO [facility] Last Admin: 08/02/20 21:02 Dose: 20 mg Documented by: Buspirone [facility] (Buspar) [facility] [place] Admin: 08/02/20 08:11 Dose: 20 mg Documented by: Carvedilol (Coreg) 25 mg PO BIDCC [facility] Last Admin: 08/02/20 16:55 Dose: 25 mg Documented by: Docusate Sodium (Colace) 100 mg PO BID [facility] Last Admin: 08/02/20 21:02 Dose: 100 mg Documented by: Vancomycin HCl 1,500 mg/ (Sodium Chloride) 500 mls @ 333.3 mls/hr IV Q24H [facility] Last Infusion: 08/02/20 12:04 Dose: Infused Documented by: Piperacillin Sod/Tazobactam (Sod 3.375 gm/ Dextrose) 50 mls @ 100 mls/hr IV Q6H [facility]; Protocol Last Infusion: 08/03/20 06:08 Dose: Infused Documented by: Lorazepam (Ativan) 2 mg PO Q2HP PRN PRN Reason: CIWA-A >6 or HR >100 Last Admin: 07/31/20 20:26 Dose: 2 mg Documented by: Multivit/Ca Carb/B Cmplx/FA/Prenat (Diatx) 1 tab PO DAILY [facility] Last Admin: 08/02/20 08:11 Dose: 1 tab Documented by: Omeprazole (Prilosec) 40 mg PO BIDAC [facility] Last Admin: 08/02/20 16:54 Dose: 40 mg Documented by: Ondansetron HCl (Zofran) 4 mg IV Q6HP PRN PRN Reason: Nausea And Vomiting Ondansetron HCl (Zofran Odt) 4 mg PO Q6HP PRN PRN Reason: nausea and vomiting [facility] Last Admin: 08/02/20 15:39 Dose: 40 mg Documented by: Abelardo (Senokot) 2 tab PO [facility] Last Admin: 08/02/20 21:02 Dose: 2 tab Documented by: Sodium Chloride (Saline Flush) 10 ml IV Q8 [facility] Last Admin: 08/03/20 05:24 Dose: 10 ml Documented by: Vancomycin HCl (Vancomycin Per Pharmacy) 1 order IV UD [facility]; Protocol A/P Narrative A/P Narrative: A: #b/l foot pain L>R: -MRI read as cellulitis/myositis/fasciitis/joint effusions, but pt evaluated & imaging reviewed by locate technician and felt gout related -afebrile since , no leukocytosis/lactic acidosis/cpk/ast/blood cxs, etc that would lend towards nectrotizing fasc #Sepsis: 2/2 above #Severe physical deconditioning/generalized weakness: -suspect related to chronic alcohol use but could also infection contributing #Alcohol withdrawal: mild #HARJINDER on CKD II: #Chronic macrocytic anemia: suspect d/t alcohol use but could be other medical disease #Parox Afib: currently sinus rhythm, on eliquis #h/o CHF: unknown LV EF #Hypokalemia:resolved #HTN/HLD: *Anxiety: PLAN: -Vanc/Zosyn, pending BC -Podiatry following, likely arthrocentesis today -CIWA protocol, ativan PRN, vitamin supplementation, thiamine -follow and replace electrolytes a needed -Tylenol PRN -hold home HCTZ/spironolactone for harjinder -cont BB, cardizem held -PT/OT following -Dispo to likely SNF -ppx: on eliquis. Time Spent With Patient Time: Total time spent is greater than 50% in coordination of care (as documented) at patient's floor/unit and/or counseling patient: QUALITY VTE Deep Vein Thrombosis/Pulmonary Embolism Present on Admission: No
[2020-08-03] MEDS ORDERED: 0.9 % SODIUM CHLORIDE 1,000 ML IV SCH (08:15)
[2020-08-03] MEDS: FOLIC ACID/VITAMIN B COMP W-C 1 TAB TABLET PO SCH (08:23)
[2020-08-03] MEDS: APIXABAN 5 MG TABLET PO SCH ×2 (08:25→20:54)
[2020-08-03] MEDS: CARVEDILOL 12.5 MG TABLET PO SCH ×2 (08:25→17:08)
[2020-08-03] MEDS: DOCUSATE SODIUM 100 MG CAPSULE PO SCH ×2 (08:25→20:54)
[2020-08-03] MEDS: OMEPRAZOLE 20 MG CAPSULE PO SCH ×2 (08:25→17:09)
[2020-08-03] MEDS: busPIRone 5 MG TABLET PO SCH (08:26)
[2020-08-03] MEDS: predniSONE 20 MG TABLET PO SCH (08:26)
[2020-08-03] MEDS: THIAMINE 100 MG TABLET PO SCH (08:33)
[2020-08-03] MEDS: VANCOMYCIN 1,500 MG in 0.9 % SODIUM CHLORIDE 500 ML IV SCH (09:17)
--- NOTE | 2020-08-03 10:17 | Orthopedic Progress Note ---
SUBJECTIVE Subjective Patient information: Note initiated : 08/03/20 at 10:15 am Service Date, if different from initiated Date: [] Patient: José Manuel Centeno 69 y/o M admitted on 07/30/20 for ETOH Withdrawal. Chief Complaint: [ankle pain] Constitutional Vitals: Vital Signs Temp Pulse Resp BP Pulse Ox 97.6 F 65 18 142/85 96 08/03/20 06:43 08/03/20 08:00 08/03/20 08:00 08/03/20 06:43 08/03/20 08:00 Period Temp Pulse Resp BP Sys/Valencia Pulse Ox Last 24 Hr 97.6 F-98.8 F 65-80 16-20 119-155/70-89 94-96 Intake and Output 08/02/20 08/03/20 08/03/20 21:59 05:59 13:59 Intake Total 770 600 170 Output Total 850 Balance 770 -250 170 Weight 205 lb 9 oz Intake & Output: Intake & Output 08/02/20 08/03/20 08/03/20 21:59 05:59 13:59 Intake Total 770 600 170 Output Total 850 Balance 770 -250 170 Weight 205 lb 9 oz Intake: IV 50 50 50 Zosyn 3.375 gm In Dextrose 5% 50 50 50 in Water 50 ml @ 100 mls/hr IV Q6H [facility] Rx#:[id number] Oral 720 550 120 Output: Void Amount 850 Other: Meal Dinner Breakfast Percent of Meal Consumed 100% 100% Feeding Ability Total Assistance Total Assistance Urine Appearance Clear Urine Color Straw OBJ DATA Labs CBC & Chem 7: 08/03/20 05:30 08/03/20 05:30 Labs: Abnormal Lab Results 08/03/20 08/03/20 08/03/20 05:30 05:30 05:30 WBC 11.9 H RBC 2.48 L Hgb 8.3 L Hct 25.8 L MCV 104.0 H RDW 15.6 H MPV 10.9 H Neut % (Auto) 89.6 H Lymph % (Auto) 6.7 L Lymph # (Auto) 0.79 L [place] # (Auto) Absolute Neutrophils 10.64 H ESR Carbon Dioxide Anion Gap Creatinine 1.4 H Glucose 147 H Iron TIBC Transferrin % Sat Direct Bilirubin GGT 175 H AST 45 H Ammonia Lactate Dehydrogenase 241 H C-Reactive Protein 14.10 H C-React Prot High Sens Albumin Globulin 4.2 H Albumin/Globulin Ratio 0.8 L Vitamin B12 Procalcitonin 0.24 H 08/02/20 08/02/20 08/02/20 05:59 05:59 05:59 WBC RBC Hgb Hct MCV RDW MPV Neut % (Auto) Lymph % (Auto) Lymph # (Auto) [place] # (Auto) Absolute Neutrophils ESR 122 H Carbon Dioxide Anion Gap Creatinine Glucose Iron TIBC Transferrin % Sat Direct Bilirubin GGT AST Ammonia Lactate Dehydrogenase C-Reactive Protein 17.40 H C-React Prot High Sens Albumin Globulin Albumin/Globulin Ratio Vitamin B12 Procalcitonin 0.33 H 08/02/20 08/02/20 08/01/20 05:59 05:59 06:01 WBC RBC 2.44 L Hgb 8.2 L Hct 25.4 L MCV 104.1 H RDW 15.4 H MPV 11.0 H Neut % (Auto) 78.3 H Lymph % (Auto) 10.8 L Lymph # (Auto) 1.10 L [place] # (Auto) Absolute Neutrophils ESR Carbon Dioxide 19 L Anion Gap 18.0 H Creatinine 1.3 H Glucose 111 H Iron TIBC Transferrin % Sat Direct Bilirubin GGT 168 H AST Ammonia Lactate Dehydrogenase C-Reactive Protein 14.50 H C-React Prot High Sens Albumin Globulin Albumin/Globulin Ratio 0.9 L Vitamin B12 Procalcitonin 08/01/20 08/01/20 08/01/20 06:01 06:01 06:01 WBC RBC Hgb Hct MCV RDW MPV Neut % (Auto) Lymph % (Auto) Lymph # (Auto) [place] # (Auto) Absolute Neutrophils ESR Carbon Dioxide Anion Gap Creatinine Glucose 107 H Iron 18 L TIBC 222 L Transferrin % Sat 8 L Direct Bilirubin 0.3 H GGT 174 H AST Ammonia 15 L Lactate Dehydrogenase C-Reactive Protein C-React Prot High Sens Albumin 3.0 L Globulin 3.9 H Albumin/Globulin Ratio 0.8 L Vitamin B12 1411.0 H Procalcitonin 08/01/20 07/31/20 07/31/20 06:01 19:25 19:25 WBC RBC 2.51 L Hgb 8.5 L Hct 26.3 L MCV 104.8 H RDW 15.2 H MPV 10.8 H Neut % (Auto) Lymph % (Auto) 10.7 L Lymph # (Auto) 0.97 L [place] # (Auto) 0.91 H Absolute Neutrophils ESR Carbon Dioxide Anion Gap Creatinine Glucose Iron TIBC Transferrin % Sat Direct Bilirubin GGT AST Ammonia Lactate Dehydrogenase C-Reactive Protein C-React Prot High Sens 171.9 H Albumin Globulin Albumin/Globulin Ratio Vitamin B12 Procalcitonin 0.27 H Meds: Medications Acetaminophen (Tylenol) 650 mg PO Q6HP PRN; Protocol PRN Reason: Per Pain Protocol/Fever > 101 Last Admin: 08/01/20 19:35 Dose: 650 mg Documented by: Albuterol Sulfate (Ventolin) 2 puff INH Q4HP PRN PRN Reason: short of breath, cough, wheeze Apixaban (Eliquis) 5 mg PO BID [facility] Last Admin: 08/03/20 08:25 Dose: 5 mg Documented by: Atorvastatin Calcium (Lipitor) 20 mg PO HS [facility] Last Admin: 08/02/20 21:02 Dose: 20 mg Documented by: Buspirone HCl (Buspar) 20 mg PO QAM [facility] Last Admin: 08/03/20 08:26 Dose: 20 mg Documented by: [facility] Last Admin: 08/03/20 08:25 Dose: 25 mg Documented by: Docusate Sodium (Colace) 100 mg PO BID [facility] Last Admin: 08/03/20 08:25 Dose: 100 mg Documented by: Vancomycin HCl 1,500 mg/ (Sodium Chloride) 500 mls @ 333.3 mls/hr IV Q24H [facility] Last Admin: 08/03/20 09:17 Dose: 333.3 mls/hr Documented by: Piperacillin Sod/Tazobactam (Sod 3.375 gm/ Dextrose) 50 mls @ 100 mls/hr IV Q6H [facility]; Protocol Last Infusion: 08/03/20 06:08 Dose: Infused Documented by: Sodium Chloride (Sodium Chloride 0.9%) 1,000 mls @ 100 mls/hr IV .Q10H [facility] Stop: 08/03/20 18:14 Last Admin: 08/03/20 08:21 Dose: 100 mls/hr Documented by: Lorazepam (Ativan) 2 mg PO Q2HP PRN PRN Reason: CIWA-A >6 or HR >100 Last Admin: 07/31/20 20:26 Dose: 2 mg Documented by: Multivit/Ca Carb/B Cmplx/FA/Prenat (Diatx) 1 tab PO DAILY [facility] Last Admin: 08/03/20 08:23 Dose: 1 tab Documented by: Omeprazole (Prilosec) 40 mg PO BIDAC [facility] Last Admin: 08/03/20 08:25 Dose: 40 mg Documented by: Ondansetron HCl (Zofran) 4 mg IV Q6HP PRN PRN Reason: Nausea And Vomiting Ondansetron HCl (Zofran Odt) 4 mg PO Q6HP PRN PRN Reason: nausea and vomiting Prednisone (Prednisone) [facility] Last Admin: 08/03/20 08:26 Dose: 40 mg Documented by: Senna (Senokot) 2 tab PO HS [facility] Last Admin: 08/02/20 21:02 Dose: 2 tab Documented by: Sodium Chloride (Saline Flush) 10 ml IV Q8 [facility] Last Admin: 08/03/20 05:24 Dose: 10 ml Documented by: Thiamine HCl (Vitamin B1) 100 mg PO DAILY [facility] Last Admin: 08/03/20 08:33 Dose: 100 mg Documented by: Vancomycin HCl (Vancomycin Per Pharmacy) 1 order IV UD [facility]; Protocol A/P Time Spent With Patient Time: Total time spent is greater than 50% in coordination of care (as docu mented) at patient's floor/unit and/or counseling patient: Left ankle aspiration performed today Possible gout / septic arthritis Total time spent with greater than 50% in coordination of care (as documented) at patient's floor/unit and/or counseling patient:: 25 - 35 minutes
[2020-08-03] MEDS: SENNOSIDES 1 TABLET PO SCH (20:53)
[2020-08-03] MEDS: ATORVASTATIN 20 MG TABLET PO SCH (20:54)
[2020-08-04] MEDS: PIPERACILLIN SODIUM/TAZOBACTAM 3.375 GM in DEXTROSE 5% IN WATER 50 ML IV SCH ×5 (00:04→23:27)
[2020-08-04] MEDS: 0.9 % SODIUM CHLORIDE 10 ML SYRINGE IV SCH ×3 (05:55→20:56)
[2020-08-04 06:36] LABS: Hematocrit 25.7 % (41.0-55.0); Hemoglobin 8.3 g/dL (13.5-16.5)
[2020-08-04 07:18] LABS: ALT/SGPT 46 U/L (<40); AST/SGOT 69 U/L (<40); Albumin 3.2 gm/dL (3.2-5.2); Albumin/Globulin Ratio 0.8 (1.0-2.3); Alkaline Phosphatase 113 U/L (39-117); Bilirubin,Direct < 0.2 mg/dL (<0.3); Bilirubin,Total 0.3 mg/dL (0.1-1.0); Blood Urea Nitrogen 22 mg/dL (8-23); Calcium 8.9 mg/dL (8.6-10.4); Carbon Dioxide 20 mmol/L (22-30); Chloride 108 mmol/L (96-108); Glomerular Filtration Rate 55; Glucose 127 mg/dL (70-105); Lactate Dehydrogenase 194 U/L (135-225); Phosphorous 2.3 mg/dL (2.5-4.5); Triglycerides 125 mg/dL (<150); Uric Acid 4.8 mg/dL (2.5-8.0)
[2020-08-04] MEDS: OMEPRAZOLE 20 MG CAPSULE PO SCH ×2 (07:22→16:59)
[2020-08-04] MEDS: CARVEDILOL 12.5 MG TABLET PO SCH ×2 (07:22→16:59)
[2020-08-04] MEDS: predniSONE 20 MG TABLET PO SCH (07:22)
--- NOTE | 2020-08-04 08:07 | Internal Med Progress Note ---
SUBJECTIVE Subjective Patient information: Note initiated : 08/04/20 at 7:58 am Service Date, if different from initiated Date: [] Patient: José Manuel Centeno 69 y/o M admitted on 07/30/20 for ETOH Withdrawal. Chief Complaint: [] Interval history: Interval history: Mr. Centeno is a 69 year old male with a history of hypertension, afib (on eliquis), congestive heart failure, alcohol use disorder who presents to the ED for generalized weakness and recent falls in the setting of alcohol withdrawal. The patient recently injured his left foot but doesn't remember how. No acute fracture identified on xray. CT head was negative for acute changes. The patient was recently started on librium to help with alcohol withdrawal symptoms. In the ED the patient is too weak to get out of bed. Per report from the ED doc his family have been trying to get the patient into a SNF. 07/31 Mild withdrawal symptoms, the patient is severely physically deconditioned. 08/01 fevers last night, left foot edema, mri pending. 08/02 No fevers overnight. Looking a little better. MRI with cellulitis myositis fasciitis of the left foot. Discussed with podiatry who will evaluate. Clinically does not look like necrotizing fasciitis. 08/03 States he feels little better again. Denies foot pain. No other pains or complaints. Slept all right. 08/04 Patient states his feet continue to feel better. Deficits poor sleep. But otherwise no complaints. When asked about MTP joint pain he says that he has had pain in the joint. Review of Systems: denies headache/fever/chills/nausea/vomiting/chest or abdominal pain/cough/dyspnea/diarrhea. Otherwise see above. Constitutional Vitals: Vital Signs Temp Pulse Resp BP Pulse Ox 97.7 F 65 18 144/82 98 08/04/20 06:56 08/04/20 06:56 08/04/20 06:56 08/04/20 06:56 08/04/20 06:56 Period Temp Pulse Resp BP Sys/Valencia Pulse Ox Last 24 Hr 97.5 F-98.3 F 63-74 18-20 122-144/76-88 94-98 Intake and Output 08/03/20 08/04/20 08/04/20 21:59 05:59 13:59 Intake Total 1390 250 300 Output Total 450 400 Balance 940 -150 300 Weight 92.397 kg Intake & Output: Intake & Output 08/03/20 08/04/20 08/04/20 21:59 05:59 13:59 Intake Total 1390 250 300 Output Total 450 400 Balance 940 -150 300 Weight 92.397 kg Intake: IV 1050 50 Sodium Chloride 0.9% 1,000 ml @ 1000 100 mls/hr IV .Q10H NANCY Rx#: [id number] Zosyn 3.375 gm In Dextrose 5% 50 50 in Water 50 ml @ 100 mls/hr IV Q6H NANCY Rx#:[id number] Oral 340 200 300 Output: Void Amount 450 400 Other: Meal Dinner Percent of Meal Consumed 100% Feeding Ability Total Assistance Urine Appearance Clear Clear Urine Color Dark Yellow Dark Yellow Exam: General: Awake, No acute Distress Eyes/N/T: EOMI, Head/Neck: neck supple, CV: RRR, No murmurs, Pulm: Clear b/l, no wheezing/rhonchi/rales Abd: soft, nontender, +BS x4 Ext: no clubbing/cyanosis. Left foot edema improved, TTP both 1st MTP joints Neuro: Alert, no focal deficits, moves all extremities, Skin: warm/dry OBJ DATA Labs CBC & Chem 7: 08/04/20 05:22 08/04/20 05:22 Labs: Abnormal Lab Results 08/04/20 08/04/20 08/04/20 05:22 05:22 05:22 WBC RBC Hgb 8.3 L Hct 25.7 L MCV RDW MPV Neut % (Auto) Lymph % (Auto) Lymph # (Auto) [place] # (Auto) Absolute Neutrophils ESR Carbon Dioxide 20 L Anion Gap Creatinine 1.3 H Glucose 127 H Phosphorus 2.3 L Iron TIBC Transferrin % Sat Direct Bilirubin GGT 178 H AST 69 H ALT 46 H Lactate Dehydrogenase C-Reactive Protein 6.40 H Albumin Globulin 4.0 H Albumin/Globulin Ratio 0.8 L Vitamin B12 Procalcitonin Fluid Crystals 08/03/20 08/03/20 08/03/20 10:15 05:30 05:30 WBC RBC Hgb Hct MCV RDW MPV Neut % (Auto) Lymph % (Auto) Lymph # (Auto) [place] # (Auto) Absolute Neutrophils ESR Carbon Dioxide Anion Gap Creatinine 1.4 H Glucose 147 H Phosphorus Iron TIBC Transferrin % Sat Direct Bilirubin GGT 175 H AST 45 H ALT Lactate Dehydrogenase 241 H C-Reactive Protein 14.10 H Albumin Globulin 4.2 H Albumin/Globulin Ratio 0.8 L Vitamin B12 Procalcitonin 0.24 H Fluid Crystals Monosodium urate A 08/03/20 08/02/20 08/02/20 05:30 05:59 05:59 WBC 11.9 H RBC 2.48 L Hgb 8.3 L Hct 25.8 L MCV 104.0 H RDW 15.6 H MPV 10.9 H Neut % (Auto) 89.6 H Lymph % (Auto) 6.7 L Lymph # (Auto) 0.79 L [place] # (Auto) Absolute Neutrophils 10.64 H ESR 122 H Carbon Dioxide Anion Gap Creatinine Glucose Phosphorus Iron TIBC Transferrin % Sat Direct Bilirubin GGT AST ALT Lactate Dehydrogenase C-Reactive Protein Albumin Globulin Albumin/Globulin Ratio Vitamin B12 Procalcitonin 0.33 H Fluid Crystals 08/02/20 08/02/20 08/02/20 05:59 05:59 05:59 WBC RBC 2.44 L Hgb 8.2 L Hct 25.4 L MCV 104.1 H RDW 15.4 H MPV 11.0 H Neut % (Auto) 78.3 H Lymph % (Auto) 10.8 L Lymph # (Auto) 1.10 L [place] # (Auto) Absolute Neutrophils ESR Carbon Dioxide 19 L Anion Gap 18.0 H Creatinine 1.3 H Glucose 111 H Phosphorus Iron TIBC Transferrin % Sat Direct Bilirubin GGT 168 H AST ALT Lactate Dehydrogenase C-Reactive Protein 17.40 H Albumin Globulin Albumin/Globulin Ratio 0.9 L Vitamin B12 Procalcitonin Fluid Crystals 08/01/20 08/01/20 08/01/20 06:01 06:01 06:01 WBC RBC Hgb Hct MCV RDW MPV Neut % (Auto) Lymph % (Auto) Lymph # (Auto) [place] # (Auto) Absolute Neutrophils ESR Carbon Dioxide Anion Gap Creatinine Glucose 107 H Phosphorus Iron 18 L TIBC 222 L Transferrin % Sat 8 L Direct Bilirubin 0.3 H GGT 174 H AST ALT Lactate Dehydrogenase C-Reactive Protein 14.50 H Albumin 3.0 L Globulin 3.9 H Albumin/Globulin Ratio 0.8 L Vitamin B12 1411.0 H Procalcitonin Fluid Crystals 08/01/20 06:01 WBC RBC 2.51 L Hgb 8.5 L Hct 26.3 L MCV 104.8 H RDW 15.2 H MPV 10.8 H Neut % (Auto) Lymph % (Auto) 10.7 L Lymph # (Auto) 0.97 L [place] # (Auto) 0.91 H Absolute Neutrophils ESR Carbon Dioxide Anion Gap Creatinine Glucose Phosphorus Iron TIBC Transferrin % Sat Direct Bilirubin GGT AST ALT Lactate Dehydrogenase C-Reactive Protein Albumin Globulin Albumin/Globulin Ratio Vitamin B12 Procalcitonin Fluid Crystals Meds: Medications Acetaminophen (Tylenol) 650 mg PO Q6HP PRN; Protocol PRN Reason: Per Pain Protocol/Fever > 101 Last Admin: 08/01/20 19:35 Dose: 650 mg Documented by: Albuterol Sulfate (Ventolin) 2 puff INH Q4HP PRN PRN Reason: short of breath, cough, wheeze Apixaban (Eliquis) 5 mg PO BID [facility] Last Admin: 08/03/20 20:54 Dose: 5 mg Documented by: Atorvastatin Calcium (Lipitor) 20 mg PO HS [facility] Last Admin: 08/03/20 20:54 Dose: 20 mg Documented by: Buspirone HCl (Buspar) 20 mg PO QAM [facility] Last Admin: 08/03/20 08:26 Dose: 20 mg Documented by: [facility] Admin: 08/04/20 07:22 Dose: 25 mg Documented by: Docusate Sodium (Colace) 100 mg PO BID [facility] Last Admin: 08/03/20 20:54 Dose: 100 mg Documented by: Vancomycin HCl 1,500 mg/ (Sodium Chloride) 500 mls @ 333.3 mls/hr IV Q24H [facility] Last Infusion: 08/03/20 10:48 Dose: Infused Documented by: Piperacillin Sod/Tazobactam (Sod 3.375 gm/ Dextrose) 50 mls @ 100 mls/hr IV Q6H [facility]; Protocol Last Admin: 08/04/20 05:55 Dose: 100 mls/hr Documented by: Lorazepam (Ativan) 2 mg PO Q2HP PRN PRN Reason: CIWA-A >6 or HR >100 Last Admin: 07/31/20 20:26 Dose: 2 mg Documented by: Multivit/Ca Carb/B Cmplx/FA/Prenat (Diatx) 1 tab PO DAILY [facility] Last Admin: 08/03/20 08:23 Dose: 1 tab Documented by: Omeprazole (Prilosec) 40 mg PO BIDAC [facility] Last Admin: 08/04/20 07:22 Dose: 40 mg Documented by: Ondansetron HCl (Zofran) 4 mg IV Q6HP PRN PRN Reason: Nausea And Vomiting Ondansetron HCl (Zofran Odt) 4 mg PO Q6HP PRN PRN Reason: nausea and vomiting Prednisone (Prednisone) 40 mg PO QAC [facility] Last Admin: 08/04/20 07:22 Dose: 40 mg Documented by: Senna (Senokot) 2 tab PO HS [facility] Last Admin: 08/03/20 20:53 Dose: 2 tab Documented by: Sodium Chloride (Saline Flush) 10 ml IV Q8 [facility] Last Admin: 08/04/20 05:55 Dose: 10 ml Documented by: Thiamine HCl (Vitamin B1) 100 mg PO DAILY [facility] Last Admin: 08/03/20 08:33 Dose: 100 mg Documented by: Vancomycin HCl (Vancomycin Per Pharmacy) 1 order IV UD [facility]; Protocol A/P Narrative A/P Narrative: A: #b/l foot pain L>R: improved -MRI read as cellulitis/myositis/fasciitis/joint effusions, but pt evaluated & imaging reviewed by junior oracle dba and felt gout related. -joint aspiration revealed a few monosodium urate crystals, no WBC's or organisms -afebrile since , no leukocytosis/lactic acidosis/cpk/ast/blood cxs #?Sepsis vs likely acute gout mimicking sepsis: 2/2 above #Severe physical deconditioning/generalized weakness: -suspect related to chronic alcohol use but could also infection contributing #Alcohol withdrawal: mild, resolved #CKD II-III: #Chronic macrocytic anemia: suspect d/t alcohol use but could be other medical disease #Parox Afib: currently sinus rhythm, on eliquis #h/o CHF: unknown LV EF #Hypokalemia:resolved #HTN/HLD: #Anxiety: #Fatty Liver: PLAN: -steroids, renal fxn precludes NSAIDS for now -Vanc/Zosyn, BC neg. d/c abx -Podiatry following, -CIWA protocol, ativan PRN, vitamin supplementation, thiamine -follow and replace electrolytes a needed -Tylenol PRN -hold home HCTZ(will not restart given gout)/spironolactone for joselin -cont BB, -PT/OT following -dietary consult -Dispo to likely SNF -ppx: on eliquis. Time Spent With Patient Time: Total time spent is greater than 50% in coordination of care (as documented) at patient's floor/unit and/or counseling patient: [facility] VTE Deep Vein Thrombosis/Pulmonary Embolism Present on Admission: No
[2020-08-04] MEDS: busPIRone 5 MG TABLET PO SCH (09:31)
[2020-08-04] MEDS: APIXABAN 5 MG TABLET PO SCH ×2 (09:32→20:56)
[2020-08-04] MEDS: THIAMINE 100 MG TABLET PO SCH (09:32)
[2020-08-04] MEDS: DOCUSATE SODIUM 100 MG CAPSULE PO SCH ×2 (09:32→20:56)
[2020-08-04] MEDS: FOLIC ACID/VITAMIN B COMP W-C 1 TAB TABLET PO SCH (09:32)
[2020-08-04] MEDS: VANCOMYCIN 1,500 MG in 0.9 % SODIUM CHLORIDE 500 ML IV SCH (09:42)
--- NOTE | 2020-08-04 10:31 | Discharge Summary ---
Discharge Provider Provider Patient information: Note initiated : 08/04/20 at 10:29 am Service Date, if different from initiated Date: [] Patient: José Manuel Centeno 69 y/o M admitted on 07/30/20 for ETOH Withdrawal. Chief Complaint: [] Date of admission: 07/30/20 15:15 Discharge date: 08/05/20 Primary care physician: Marcy Carey Consults: 07/30/20 13:58 Consult to Physician [CONS] Stat Comment: Consulting Provider: Rosendo Diggs Reason For Exam: Physician to Consult 08/01/20 19:06 Consult to Physician [CONS] Routine Comment: myositis, fasciitis Consulting Provider: Jordin Barroso Reason For Exam: Physician to Consult Discharge Meds Discharge Medications Home Medications albuterol sulfate 2 puff INH Q4HP PRN #1 inhaler 08/04/19 [Rx Confirmed 07/30/20 Last Taken Unknown] apixaban 5 mg PO BID 12/04/19 [History Confirmed 07/30/20 Last Taken Unknown] buspirone 20 mg PO QAM 12/04/19 [History Confirmed 07/30/20 Last Taken Unknown] carvedilol 25 mg PO BID 12/04/19 [History Confirmed 07/30/20 Last Taken Unknown] magnesium oxide 400 tab PO DAILY 12/04/19 [History Confirmed 07/30/20 Last Taken Unknown] rosuvastatin 10 mg PO HS 12/04/19 [History Confirmed 07/30/20 Last Taken Unknown] spironolactone 25 mg PO DAILY 12/04/19 [History Confirmed 07/30/20 Last Taken Unknown] ondansetron 4 mg PO Q6H PRN #30 tab 07/20/20 [Rx Confirmed 07/30/20 Last Taken Unknown] diltiazem HCl 60 mg PO DAILY 07/30/20 [History Confirmed 07/30/20 Last Taken Unknown] omeprazole 40 mg PO BID 07/30/20 [History Confirmed 07/30/20 Last Taken Unknown] prednisone 30 mg PO QDAY #7 tab 08/04/20 [Rx Last Taken Unknown] COURSE Hospital Course Hospital course: Interval history: Interval history: Mr. Centeno is a 69 year old male with a history of hypertension, afib (on eliquis), congestive heart failure, alcohol use disorder who presents to the ED for generalized weakness and recent falls in the setting of alcohol withdrawal. The patient recently injured his left foot but doesn't remember how. No acute fracture identified on xray. CT head was negative for acute changes. The patient was recently started on librium to help with alcohol withdrawal symptoms. In the ED the patient is too weak to get out of bed. Per report from the ED doc his family have been trying to get the patient into a SNF. 07/31 Mild withdrawal symptoms, the patient is severely physically deconditioned. 08/01 fevers last night, left foot edema, mri pending. 08/02 No fevers overnight. Looking a little better. MRI with cellulitis myositis fasciitis of the left foot. Discussed with podiatry who will evaluate. Clinically does not look like necrotizing fasciitis. 08/03 States he feels little better again. Denies foot pain. No other pains or complaints. Slept all right. 08/04 Patient states his feet continue to feel better. Deficits poor sleep. But otherwise no complaints. When asked about MTP joint pain he says that he has had pain in the joint. per he has had steady decline over past year. Worsening gait with frequent falling, confusion at times, garbled/gibberish in speaking at times. 08/05 No issues overnight. [facility] *Patient high risk for readmission given significant comorbidities and sequela of chronic alcohol use. A: #b/l foot pain L>R: improved -MRI read as cellulitis/myositis/fasciitis/joint effusions, but pt evaluated & imaging reviewed by calculus tutor and felt gout related. 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 fib history of CHF hypertension anxiety fatty liver Time Spent with Patient Time attestation: Total time spent providing and/or coordinating discharge services: Time spent: Greater than 30 minutes EXAM Constitutional Vitals: Temp Pulse Resp BP Pulse Ox 97.7 F 65 18 144/82 98 08/04/20 06:56 08/04/20 06:56 08/04/20 06:56 08/04/20 06:56 08/04/20 06:56 Discharge Data Data Completed and Pending Labs on day of discharge: Labs from last 24 hours 08/04/20 08/04/20 08/04/20 05:22 05:22 05:22 Hgb 8.3 L Hct 25.7 L Sodium 140 Potassium 3.6 Chloride 108 Carbon Dioxide 20 L Anion Gap 12.0 BUN 22 Creatinine 1.3 H GFR Calculation 55 Glucose 127 H Uric Acid 4.8 Calcium 8.9 Phosphorus 2.3 L Magnesium 2.3 Total Bilirubin 0.3 Direct Bilirubin < 0.2 GGT 178 H AST 69 H ALT 46 H Alkaline Phosphatase 113 Lactate Dehydrogenase 194 C-Reactive Protein 6.40 H Total Protein 7.2 Albumin 3.2 Globulin 4.0 H Albumin/Globulin Ratio 0.8 L Triglycerides 125 Fluid Crystals 08/03/20 10:15 Hgb Hct Sodium Potassium Chloride Carbon Dioxide Anion Gap BUN Creatinine GFR Calculation Glucose Uric Acid Calcium Phosphorus Magnesium Total Bilirubin Direct Bilirubin GGT AST ALT Alkaline Phosphatase Lactate Dehydrogenase C-Reactive Protein Total Protein Albumin Globulin Albumin/Globulin Ratio Triglycerides Fluid Crystals Monosodium urate A Preliminary micro results at discharge 07/31/20 19:23 Blood Culture - Preliminary Blood 07/31/20 19:19 Blood Culture - Preliminary Blood 08/03/20 10:15 Gram Stain - Preliminary Aspirate - Aspirate Discharge Plan Patient/Caregiver Discharge Instructions Activity: increase activity as tolerated Diet: Low Fat Prescriptions: New prednisone 10 mg tablet 30 mg PO QDAY Qty: 7 RF: 0 Continued albuterol sulfate 1 PUFF inhaler 2 puff INH Q4HP PRN (Reason: short of breath, cough, wheeze) Qty: 1 RF: 0 carvedilol 25 MG tablet 25 mg PO BID RF: 0 spironolactone 25 MG tablet 25 mg PO DAILY RF: 0 buspirone 10 MG tablet 20 mg PO QAM RF: 0 rosuvastatin 10 MG tablet 10 mg PO HS RF: 0 apixaban 5 MG tablet 5 mg PO BID RF: 0 magnesium oxide 200 MG tablet 400 tab PO DAILY RF: 0 ondansetron 4 mg tablet,disintegrating 4 mg PO Q6H PRN (Reason: nausea and vomiting) Qty: 30 RF: 0 omeprazole 40 mg Capsule,Delayed Release(Dr/Ec) 40 mg PO BID RF: 0 diltiazem HCl 60 mg Capsule,Extended Release 12 Hr 60 mg PO DAILY RF: 0 Discontinued chlordiazepoxide HCl 25 mg capsule 50 mg PO Q6HP PRN (Reason: alcohol withdrawal) Qty: 30 RF: 0 Follow Up Plan Follow up with: Marcy Carey MD [Primary Care Provider] - Jordin Barroso DPM [Physician] - Patient Disposition: Xfer SNF Prognosis: Undetermined Rehab Potential: Fair I certify that the patient requires SNF services: Yes Overall status at discharge: patient is progressing back to baseline Discharge Orders: Discharge Order (Routine); Ordered 08/05/20 Ordered By: [place] [facility] VTE Deep Vein Thrombosis/Pulmonary Embolism Present on Admission: No
[2020-08-04] MEDS ORDERED: OLANZapine 5 MG TABLET PO PRN (10:48)
[2020-08-04] MEDS: ATORVASTATIN 20 MG TABLET PO SCH (20:56)
[2020-08-04] MEDS: SENNOSIDES 1 TABLET PO SCH (20:56)
[2020-08-05] MEDS: 0.9 % SODIUM CHLORIDE 10 ML SYRINGE IV SCH (05:57)
[2020-08-05] MEDS: PIPERACILLIN SODIUM/TAZOBACTAM 3.375 GM in DEXTROSE 5% IN WATER 50 ML IV SCH (05:58)
[2020-08-05] MEDS: CARVEDILOL 12.5 MG TABLET PO SCH (07:04)
[2020-08-05] MEDS: predniSONE 20 MG TABLET PO SCH (07:04)
[2020-08-05] MEDS: OMEPRAZOLE 20 MG CAPSULE PO SCH (07:05)
[2020-08-05] MEDS: APIXABAN 5 MG TABLET PO SCH (08:33)
[2020-08-05] MEDS: busPIRone 5 MG TABLET PO SCH (08:33)
[2020-08-05] MEDS: THIAMINE 100 MG TABLET PO SCH (08:33)
[2020-08-05] MEDS: DOCUSATE SODIUM 100 MG CAPSULE PO SCH (08:33)
[2020-08-05] MEDS: FOLIC ACID/VITAMIN B COMP W-C 1 TAB TABLET PO SCH (08:33)
[2020-08-05] MEDS ORDERED: cloNIDine HCL 0.1 MG TABLET PO SCH (10:15)
[2020-08-05] MEDS ORDERED: DILTIAZEM 30 MG TABLET PO ONE (10:30)
== END 2020-08-05 13:20 | DRG 897 ==
LOC: ED 04:21 → MEDSUR 15:15
PROVIDERS: ADMIT Internal Medicine; ATTEND Internal Medicine

== ENCOUNTER 2022-04-24 16:07 | Inpatient (IN) ==
--- NOTE | 2022-04-24 16:25 | Emergency Department Note ---
HPI General Chief complaint: Fall Stated complaint: Fall/Weakness Time Seen by Provider: 04/24/22 16:11 Source: EMS Mode of arrival: EMS History of Present Illness HPI Narrative: Narrative: Patient is a 71-year-old male with a complex medical history who presents to the emergency department due to concern for stroke. Patient states that he has had his symptoms for approximately 1 month. He states that he has had balance concerns falling to the left, and has been falling more frequently recently. Patient's states that he has had left lower extremity weakness with leg dragging intermittently since December, but this has become constant over the last month. She states that he drinks 1/5 of whiskey a day, so she is concerned abou t his alcohol use and alcohol withdrawal. She states that he has also had a left-sided facial droop. She denies any other concerns at this time. Patient also denies any other concerns at this time. Related Data Home Medications Medication Instructions Recorded Confirmed rosuvastatin 10 mg tablet 10 mg PO HS 12/04/19 04/24/22 diltiazem HCl 60 mg 60 mg PO DAILY 07/30/20 04/24/22 capsule,extended release 12 hr gabapentin 300 mg capsule 300 mg PO DAILY 08/14/21 04/25/22 lisinopril 20 mg tablet 20 mg PO QDAY 08/14/21 04/24/22 carvedilol 25 mg tablet 25 mg PO BID 04/02/22 04/24/22 colchicine 0.6 mg tablet 0.6 mg PO QDAY PRN gout 04/02/22 04/24/22 omeprazole 20 mg capsule,delayed 20 mg PO QDAY 04/02/22 04/24/22 release apixaban 5 mg tablet (Eliquis) 5 mg PO BID 04/15/22 04/24/22 gabapentin 300 mg capsule 600 mg PO HS 04/25/22 04/25/22 Previous Rx's Medication Instructions Recorded mirtazapine 15 mg tablet (Remeron) See Rx Instructions .Route 09/12/20 .COMPLEX #15 tabs Allergies Allergy/AdvReac Type Severity Reaction Status Date / Time No Known Drug Allergies Allergy Verified 04/15/22 11:18 Review of Systems ROS ROS Narrative: Narrative: Constitutional: Reports weakness; Denies fever Eyes: Denies eye pain or vision change ENT ED: Denies throat pain, hearing loss or rhinorrhea Cardiovascular: Denies chest pain, dyspnea on exertion, orthopnea or edema Respiratory: Denies shortness of breath or cough Gastrointestinal: Denies abdominal pain, nausea, vomiting, diarrhea, constipation, hematochezia or melena Genitourinary: Denies dysuria, frequency, hematuria or incontinence Musculoskeletal: Denies back pain or myalgia Integumentary: Denies rash or lesions Neurological: Reports weakness and abnormal gait; Denies headache, numbness, confusion or dizziness Endocrine: Denies fatigue or polyuria Hematological/Lymphatic: Denies easy bleeding or easy bruising PFS Narrative Patient History Narrative: Narrative: Medical/Surgical/Family History All Active Problems (Updated 04/25/22 @ 16:03 by Scout Cassidy MD) Left leg weakness (Acute) Facial droop (Acute) CAD (coronary artery disease) (Acute) Left-sided muscle weakness (Acute) Congestive heart failure (Chronic) Essential hypertension (Chronic) Atrial fibrillation (Chronic) Overweight (BMI 25.0-29.9) (Chronic) Hyperlipidemia (Chronic) First degree AV block (Chronic) Chronic anticoagulation (Chronic) Syncope (Acute) Alcoholism, chronic (Acute) Anemia (Acute) Chronic nausea (Acute) Anemia, macrocytic (Acute) Macrocytosis (Acute) Falls (Acute) Anemia in chronic illness (Acute) Vitamin D deficiency (Acute) Alcohol use disorder, severe, dependence (Acute) Insomnia (Acute) Generalized anxiety disorder (Acute) Gastric ulcer (Acute) Strain of hip (Acute) Gout (Acute) Medical History (Updated 04/25/22 @ 16:03 by Scout Cassidy MD) Abdominal pain Atrial fibrillation Paroxysmal Bacterial conjunctivitis of left eye Bacterial sinusitis Chronic anticoagulation Eliquis (apixaban) Congestive heart failure Essential hypertension Fall First degree AV block Hyperlipidemia Overweight (BMI 25.0-29.9) Pneumonia Shortness of breath Surgical History History of phacoemulsification of cataract of both eyes with intraocular lens implantation History of total right hip replacement Family History (Updated 04/02/22 @ 16:59 by Paul Sanabria) Mother Breast cancer Social History Smoking Status: Never smoker Alcohol Intake Frequency: 0-2 drinks per day Substance Use: does not use and other Exam Narrative Narrative: Narrative: General General appearance: Present alert and in no apparent distress; Absent anxious, appears intoxicated or sleepy Head Head: Present atraumatic and normocephalic Eye Eye: Present PERRL, EOMI and visual cohen intact; Absent scleral icterus or nystagmus ENT ENT: Present mucous membranes moist; Absent nasal congestion Neck Neck: Present full ROM; Absent tenderness Chest Chest: Present normal inspection and symmetric chest wall rise; Absent tenderness Respiratory Respiratory: Present normal lung sounds bilaterally; Absent respiratory distress or accessory muscle use Cardiovascular Cardiovascular: Present regular rate, normal rhythm and normal heart sounds Adbominal Abdominal: Present soft and normal bowel sounds; Absent distention or tenderness Extremities Extremities: Present normal inspection and full ROM; Absent tenderness Back Back: Present normal inspection and full ROM; Absent tenderness Neurological Neurological: Present alert, oriented X3, motor sensory deficit (Left lower extremity weakness) and reflexes normal; Absent CN II-XII intact (Left facial droop) Psychiatric Psychiatric: Present normal affect and normal mood Skin Skin: Present warm (WNL), dry and normal color Course Vital Signs Vital signs: Vital Signs Temperature 100.1 F H 04/24/22 16:08 Pulse Rate 87 04/24/22 16:08 Respiratory Rate 18 04/24/22 16:08 Blood Pressure 154/88 04/24/22 16:08 Pulse Oximetry (%) 99 04/24/22 16:08 Oxygen Delivery Method 04/24/22 16:08 Temperature 98.3 F 04/25/22 12:01 Pulse Rate 63 04/25/22 14:01 Respiratory Rate 18 04/25/22 14:01 Blood Pressure 120/75 04/25/22 14:01 Pulse Oximetry (%) 96 04/25/22 14:01 Oxygen Delivery Method 04/25/22 14:01 [facility] Narrative Medical decision making narrative: Narrative: Patient is a 71-year-old male who presents due to concern for stroke. Patient has had the symptoms for over a month, so patient is not a candidate for acute intervention. Patient's vitals and labs are essentially baseline. Due to concern for alcohol use blood alcohol has been ordered, but patient is not demonstrating any signs of withdrawal at this time. Because concern for stroke I have spoken to Dr. Hill who has agreed to see and evaluate patient for admission for stroke work-up. Lab Data Result diagrams: 04/25/22 05:00 04/25/22 05:00 Labs: Lab Results 04/24/22 04/24/22 04/24/22 Range/Units 16:44 17:09 17:09 WBC 9.8 (4.5-11.0) K/mcL RBC 2.79 L (4.63-6.08) M/mcL Hgb 10.6 L (13.7-17.5) g/dL Hct 31.3 L (40.1-51.0) % POC Hct (41-55) MCV 112.2 H (80.0-100.0) fL MCH 38.0 H (26.0-34.0) pg MCHC 33.9 (31.0-36.0) g/dL RDW 14.9 H (11.5-14.5) % Plt Count 173 (140-440) K/mcL MPV 9.9 (8.8-12.5) fL Immature Gran % (Auto) 0.4 (0.0-0.5) % Neut % (Auto) 75.1 (38.0-78.0) % Lymph % (Auto) 13.9 L (15.5-49.0) % [place] % (Auto) 9.5 (1.0-12.0) % Eos % (Auto) 0.7 (0.0-7.0) % Baso % (Auto) 0.4 (0.0-2.0) % Lymph # (Auto) 1.36 L (1.50-4.80) K/mcL [place] # (Auto) 0.93 H (0.10-0.90) K/mcL Eos # (Auto) 0.07 (0.00-0.70) K/mcL Baso # (Auto) 0.04 (0.00-0.30) K/mcL Immature Gran # 0.04 (0.00-0.05) K/mcl Absolute Neutrophils 7.33 (1.80-8.00) K/mcL PT (11.9-14.5) sec INR (0.9-1.1) POC Sodium (133-145) Sodium (133-145) mmol/L POC Potassium (3.3-5.1) Potassium (3.3-5.1) mmol/L POC Chloride (96-108) Chloride (96-108) mmol/L Carbon Dioxide (22-30) mmol/L POC Total CO2 (22-30) Anion Gap (8.0-16.0) POC BUN (6-20) BUN (8-23) mg/dL Creatinine (0.7-1.2) mg/dL POC Creatinine (0.6-1.2) GFR Calculation Glucose (70-105) mg/dL POC Glucose (70-105) Calcium (8.6-10.4) mg/dL POC WB Ioniz Calcium (1.16-1.32) Phosphorus (2.5-4.5) mg/dL Total Bilirubin (0.1-1.0) mg/dL Direct Bilirubin (<0.3) mg/dL AST (<40) U/L ALT (<40) U/L Alkaline Phosphatase (39-117) U/L Total Protein (5.9-8.4) gm/dL Albumin (3.2-5.2) gm/dL Globulin (2.2-3.7) gm/dL Urine Color Yellow Urine Appearance Clear (Clear) Urine pH 5.0 (5.0-9.0) Ur Specific [place] 1.020 (1.000-1.035) Urine Protein 30 A (Negative) mg/dL Urine Glucose (UA) Negative (Negative) mg/dL Urine Ketones 5 A (Negative) mg/dL Urine Occult Blood 0.20 (Negative) mg/dL Urine Nitrate Negative (Negative) Urine Bilirubin Negative (Negative) mg/dL Urine Urobilinogen 4.0 A mg/dL Ur Leukocyte Esterase Negative (Negative) /uL Urine RBC 7 H (0-3) /hpf Urine WBC 2 (0-4) /hpf Ur Squamous Epith Cells 0 (0-4) /hpf Urine Bacteria None (0) /hpf Urine Mucus Few A (None) /hpf Ur Culture Indicated? No Ethyl Alcohol mg/dL 13.0 mg/dL Ethyl Alcohol g/dL 0.013 H (<0.010) gm/dL 04/24/22 04/24/22 04/24/22 Range/Units 17:09 17:09 17:15 WBC (4.5-11.0) K/mcL RBC (4.63-6.08) M/mcL Hgb (13.7-17.5) g/dL Hct (40.1-51.0) % POC Hct 34.0 L (41-55) MCV (80.0-100.0) fL MCH (26.0-34.0) pg MCHC (31.0-36.0) g/dL RDW (11.5-14.5) % Plt Count (140-440) K/mcL MPV (8.8-12.5) fL Immature Gran % (Auto) (0.0-0.5) % Neut % (Auto) (38.0-78.0) % Lymph % (Auto) (15.5-49.0) % [place] % (Auto) (1.0-12.0) % Eos % (Auto) (0.0-7.0) % Baso % (Auto) (0.0-2.0) % Lymph # (Auto) (1.50-4.80) K/mcL [place] # (Auto) (0.10-0.90) K/mcL Eos # (Auto) (0.00-0.70) K/mcL Baso # (Auto) (0.00-0.30) K/mcL Immature Gran # (0.00-0.05) K/mcl Absolute Neutrophils (1.80-8.00) K/mcL PT 16.0 H (11.9-14.5) sec INR 1.2 H (0.9-1.1) POC Sodium 136 (133-145) Sodium 136 (133-145) mmol/L POC Potassium 3.8 (3.3-5.1) Potassium 3.9 (3.3-5.1) mmol/L POC Chloride 102 (96-108) Chloride 98 (96-108) mmol/L Carbon Dioxide 20 L (22-30) mmol/L POC Total CO2 23.0 (22-30) Anion Gap 18.0 H (8.0-16.0) POC BUN 19 (6-20) BUN 14 (8-23) mg/dL Creatinine 2.3 H (0.7-1.2) mg/dL POC Creatinine 2.3 H (0.6-1.2) GFR Calculation 27 Glucose 101 (70-105) mg/dL POC Glucose 101 (70-105) Calcium 8.6 (8.6-10.4) mg/dL POC WB Ioniz Calcium 1.12 L (1.16-1.32) Phosphorus 2.7 (2.5-4.5) mg/dL Total Bilirubin 1.2 H (0.1-1.0) mg/dL Direct Bilirubin 0.7 H (<0.3) mg/dL AST 56 H (<40) U/L ALT 25 (<40) U/L Alkaline Phosphatase 153 H (39-117) U/L Total Protein 6.6 (5.9-8.4) gm/dL Albumin 3.3 (3.2-5.2) gm/dL Globulin 3.3 (2.2-3.7) gm/dL Urine Color Urine Appearance (Clear) Urine pH (5.0-9.0) Ur Specific [place] (1.000-1.035) Urine Protein (Negative) mg/dL Urine Glucose (UA) (Negative) mg/dL Urine Ketones (Negative) mg/dL Urine Occult Blood (Negative) mg/dL Urine Nitrate (Negative) Urine Bilirubin (Negative) mg/dL Urine Urobilinogen mg/dL Ur Leukocyte Esterase (Negative) /uL Urine RBC (0-3) /hpf Urine WBC (0-4) /hpf Ur Squamous Epith Cells (0-4) /hpf Urine Bacteria (0) /hpf Urine Mucus (None) /hpf Ur Culture Indicated? Ethyl Alcohol mg/dL mg/dL Ethyl Alcohol g/dL (<0.010) gm/dL ED POC Tests ED POC Tests: JASON - SARS Antigen Negative Discharge Plan Patient/Caregiver Discharge Instructions Pt seen by [employer] only: No Clinical Impression: Left leg weakness, Facial droop Patient Disposition: Xfer As Inpt ([facility]) Discharge Date/Time: 04/24/22 20:34
[2022-04-24 17:18] LABS: POC Calcium, Ionized 1.12 (1.16-1.32); POC Creatinine 2.3 (0.6-1.2); POC Potassium 3.8 (3.3-5.1)
[2022-04-24] MEDS ORDERED: 0.9 % SODIUM CHLORIDE 500 ML IV ONE (17:19)
[2022-04-24 17:26] LABS: Appearance,Urine CLEAR (Clear); Bilirubin,Urine Negative (Negative); Color,Urine Yellow; Culture Indicated,Urine No; Glucose,Urine (UA) Negative (Negative); Ketones,Urine 5 mg/dL (Negative); Leukocyte Esterase,Urine Negative /uL (Negative); Mucus,Urine FEW /hpf; Nitrate,Urine Negative (Negative); Protein,Urine 30 mg/dL (Negative); Urine RBC 7 /hpf (0-3); Urine Squamous Epithelial Cell 0 /hpf (0-4); Urine WBC 2 /hpf (0-4)
--- NOTE | 2022-04-24 17:38 | Cat Scan Report ---
CLINICAL INFORMATION: Trauma on blood thinners COMPARISON: 03/27/2022 TECHNIQUE: 2.5 mm helical slices were obtained in the skull base to vertex. Following reconstruction, axial reformatted images were reviewed at bone and parenchymal windows. The exam was performed using radiation dose optimization techniques including, but not limited to, automated exposure control, adjustment of the mA and/or kV according to patient size and use of iterative reconstruction technique. FINDINGS: The ventricles, sulci, fissures, and cisterns are symmetrically enlarged compatible with mild age-related atrophy. No extra-axial fluid collections are identified. Mild patchy chronic ischemic changes, in the deep cerebral white matter, are expected for age. There is no hemorrhage, mass effect, or edema. Bone windows show no osseous abnormality. IMPRESSION: Mild atrophy and chronic ischemic changes in the deep cerebral white matter-expected for age. No acute findings . Interpreted and Authenticated by: Arpan Tsai 04/24/22
[2022-04-24 17:49] LABS: Basophils # (Auto) 0.04 K/mcL (0.00-0.30); Basophils % (Auto) 0.4 % (0.0-2.0); Eosinophils # (Auto) 0.07 K/mcL (0.00-0.70); Eosinophils % (Auto) 0.7 % (0.0-7.0); Hematocrit 31.3 % (40.1-51.0); Hemoglobin 10.6 g/dL (13.7-17.5); Lymphocytes # (Auto) 1.36 K/mcL (1.50-4.80); Lymphocytes % (Auto) 13.9 % (15.5-49.0); Mean Cell Volume 112.2 fL (80.0-100.0); Mean Corpuscular HGB Conc 33.9 g/dL (31.0-36.0); Mean Platelet Volume 9.9 fL (8.8-12.5); Monocytes # (Auto) 0.93 K/mcL (0.10-0.90); Monocytes % (Auto) 9.5 % (1.0-12.0); Neutrophils % (Auto) 75.1 % (38.0-78.0); Platelet Count 173 K/mcL (140-440); RBC 2.79 M/mcL (4.63-6.08); Red Cell Distribution Width 14.9 % (11.5-14.5); WBC 9.8 K/mcL (4.5-11.0)
[2022-04-24] MEDS ORDERED: POTASSIUM CHLORIDE 20 MEQ, MAGNESIUM SULFATE 16.24 MEQ, THIAMINE 100 MG, MVI, ADULT NO.... IV SCH ×2 (19:15→23:00)
[2022-04-24 19:28] LABS: Alcohol,Blood 0.013 gm/dL (<0.010)
--- NOTE | 2022-04-24 19:59 | Internal Med History&Physical ---
HPI History of Present Illness Patient information: Note initiated : 04/24/22 at 7:39 pm Service Date, if different from initiated Date: [] Patient: José Manuel Centeno 71 y/o M admitted on for Fall/Weakness. Chief Complaint: [] History of present illness: Mr. Centeno is a 71 year old M Presents to the ED after falling several times. Patient was seen by her primary care physician to establish care and per the patient and 's complaint he had left-sided weakness which has been going on for about a year but progressing. When asking why he is here he says left-sided weakness left leg more than arm. He has fallen several times in the past couple days which is the reason was brought him in. There is also report of facial drooping but on examination he does not have any drooping and he does not recall having any drooping. On physical examination appears he has symmetrical strength bilaterally, weak bilaterally but symmetrical. Yes Tobacco tell if there is weakness I said no noticeable weakness on exam. And then I asked him about whether he felt actual focal weakness or did he feel like he was falling because he had balance issues and he said it was related more to balance issues. I stood him up at bedside and held his hands. Asked if I let go of his hands while standing would he be able to stand on his own he said he would likely fall backwards. I gradually let go but he quickly grabbed my hands. I sat him back down in bed. Patient says he shuffles when he walks at home. Get the sense of confabulation at times and of note on hospitalization last year there is concern for Warnicke Korsakoff syndrome. Patient is a chronic alcohol abuser and typically would drinks 1/5 of whiskey daily but he says he is down to 8 ounces of Chardonnay a day. States last drink was couple days ago and refuses a beer for any withdrawal symptoms and denies any withdrawal symptoms. He was scheduled for an MRI of the brain tomorrow morning by his PCP. CT head noncontrast in the ED today showed mild atrophy and chronic ischemic changes but no focal pathology. Review of Systems: Pertinent positives as above. Denies headache/fever/chills/nausea/vomiting/chest or abdominal pain/cough/dyspnea/diarrhea. Remaining 10 point review of system reviewed negative PFSH PFSH All Active Problems (Updated 04/15/22 @ 12:00 by Arpan Pro DO) CAD (coronary artery disease) (Acute) Left-sided muscle weakness (Acute) Congestive heart failure (Chronic) Essential hypertension (Chronic) Atrial fibrillation (Chronic) Overweight (BMI 25.0-29.9) (Chronic) Hyperlipidemia (Chronic) First degree AV block (Chronic) Chronic anticoagulation (Chronic) Syncope (Acute) Alcoholism, chronic (Acute) Anemia (Acute) Chronic nausea (Acute) Anemia, macrocytic (Acute) Macrocytosis (Acute) Falls (Acute) Anemia in chronic illness (Acute) Vitamin D deficiency (Acute) Alcohol use disorder, severe, dependence (Acute) Insomnia (Acute) Generalized anxiety disorder (Acute) Gastric ulcer (Acute) Strain of hip (Acute) Gout (Acute) Medical History (Updated 04/15/22 @ 12:00 by Arpan Pro DO) Abdominal pain Atrial fibrillation Paroxysmal Bacterial conjunctivitis of left eye Bacterial sinusitis Chronic anticoagulation Eliquis (apixaban) Congestive heart failure Essential hypertension Fall First degree AV block Hyperlipidemia Overweight (BMI 25.0-29.9) Pneumonia Shortness of breath Surgical History History of phacoemulsification of cataract of both eyes with intraocular lens implantation History of total right hip replacement Family History (Updated 04/02/22 @ 16:59 by Paul Sanabria) Mother Breast cancer Social History (Updated 04/02/22 @ 17:00 by Paul Sanabria) marital status: occupational status: retired smoking status: Never smoker alcohol intake frequency: 0-2 drinks per day substance use type: does not use and other details: CBC MEDS/ALLERGIES Home Medications and Allergies Home Medications Medication Instructions Recorded Confirmed Type rosuvastatin 10 mg tablet 10 mg PO HS 12/04/19 04/24/22 History ondansetron 4 mg disintegrating 4 mg PO Q6H PRN nausea and 07/20/20 04/24/22 Rx tablet vomiting #30 tabs diltiazem HCl 60 mg 60 mg PO DAILY 07/30/20 04/24/22 History capsule,extended release 12 hr mirtazapine 15 mg tablet (Remeron) See Rx Instructions .Route 09/12/20 04/24/22 Rx .COMPLEX #15 tabs gabapentin 300 mg capsule 300 mg PO BID 08/14/21 04/24/22 History lisinopril 20 mg tablet 20 mg PO QDAY 08/14/21 04/24/22 History carvedilol 25 mg tablet 25 mg PO BID 04/02/22 04/24/22 History colchicine 0.6 mg tablet 0.6 mg PO QDAY PRN gout 04/02/22 04/24/22 History omeprazole 20 mg capsule,delayed 20 mg PO QDAY 04/02/22 04/24/22 History release apixaban 5 mg tablet (Eliquis) 5 mg PO BID 04/15/22 04/24/22 History Allergies Allergy/AdvReac Type Severity Reaction Status Date / Time No Known Drug Allergies Allergy Verified 04/15/22 11:18 EXAM Constitutional Vitals: Temp Pulse Resp BP Pulse Ox O2 Del Method 100.1 F H 86 18 152/105 96 04/24/22 16:08 04/24/22 19:03 04/24/22 16:08 04/24/22 18:31 04/24/22 19:03 04/24/22 16:08 Exam: General: Alert, Awake, No acute Distress Eyes/N/T: EOMI, PERRL, Head/Neck: neck supple, normocephalic atraumatic CV: RRR, No murmurs, normal s1/s2 Pulm: Clear b/l, no wheezing/rhonchi/rales Abd: soft, nontender, +BS x4 Ext: no clubbing/cyanosis/edema Neuro: Alert, moves all extremities, CN 2-12 grossly intact, symmetrical streng th b/l upper/lower although generally weak, sensations intact b/l upper/lower. Ataxia stance at bedside, slow speech. Face symmetrical, no pronator drift Skin: warm/dry DATA Data Completed and Pending Labs: Labs from last 24 hours 04/24/22 04/24/22 04/24/22 17:15 17:09 17:09 WBC 9.8 RBC 2.79 L Hgb 10.6 L Hct 31.3 L POC Hct 34.0 L MCV 112.2 H MCH 38.0 H MCHC 33.9 RDW 14.9 H Plt Count 173 MPV 9.9 Immature Gran % (Auto) 0.4 Neut % (Auto) 75.1 Lymph % (Auto) 13.9 L [place] % (Auto) 9.5 Eos % (Auto) 0.7 Baso % (Auto) 0.4 Lymph # (Auto) 1.36 L [place] # (Auto) 0.93 H Eos # (Auto) 0.07 Baso # (Auto) 0.04 Immature Gran # 0.04 Absolute Neutrophils 7.33 POC Sodium 136 POC Potassium 3.8 POC Chloride 102 POC Total CO2 23.0 POC BUN 19 POC Creatinine 2.3 H POC Glucose 101 POC WB Ioniz Calcium 1.12 L Urine Color Urine Appearance Urine pH Ur Specific [place] Urine Protein Urine Glucose (UA) Urine Ketones Urine Occult Blood Urine Nitrate Urine Bilirubin Urine Urobilinogen Ur Leukocyte Esterase Urine RBC Urine WBC Ur Squamous Epith Cells Urine Bacteria Urine Mucus Ur Culture Indicated? Ethyl Alcohol mg/dL 13.0 Ethyl Alcohol g/dL 0.013 H 04/24/22 16:44 WBC RBC Hgb Hct POC Hct MCV MCH MCHC RDW Plt Count MPV Immature Gran % (Auto) Neut % (Auto) Lymph % (Auto) [place] % (Auto) Eos % (Auto) Baso % (Auto) Lymph # (Auto) [place] # (Auto) Eos # (Auto) Baso # (Auto) Immature Gran # Absolute Neutrophils POC Sodium POC Potassium POC Chloride POC Total CO2 POC BUN POC Creatinine POC Glucose POC WB Ioniz Calcium Urine Color Yellow Urine Appearance Clear Urine pH 5.0 Ur Specific [place] 1.020 Urine Protein 30 A Urine Glucose (UA) Negative Urine Ketones 5 A Urine Occult Blood 0.20 Urine Nitrate Negative Urine Bilirubin Negative Urine Urobilinogen 4.0 A Ur Leukocyte Esterase Negative Urine RBC 7 H Urine WBC 2 Ur Squamous Epith Cells 0 Urine Bacteria None Urine Mucus Few A Ur Culture Indicated? 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: *Etoh abuse: *HARJINDER on CKD IIIb: #Chronic macrocytic anemia with folate deficiency: #Parox Afib: currently sinus rhythm, on eliquis/BB #h/o grade II diastolic dysfxn: #HTN/HLD: #Anxiety: #Fatty Liver: *h/o Gout: *GERD: P: -MRI brain -thiamine -CIWA -folate supp -cont home BB/Dilt/ARB - -home medication reconciation -pt/ot -CM for placement needs -ppx: apixaban / ppi Time Spent With Patient Time: Total time spent is greater than 50% in coordination of care (as documented) at patient's floor/unit and/or counseling patient: Total time spent with greater than 50% in coordination of care (as documented) at patient's floor/unit and/or counseling patient:: Greater than 70 minutes
[2022-04-24 20:28] LABS: ALT/SGPT 25 U/L (<40); AST/SGOT 56 U/L (<40); Albumin 3.3 gm/dL (3.2-5.2); Alkaline Phosphatase 153 U/L (39-117); Bilirubin,Direct 0.7 mg/dL (<0.3); Bilirubin,Total 1.2 mg/dL (0.1-1.0); Blood Urea Nitrogen 14 mg/dL (8-23); Calcium 8.6 mg/dL (8.6-10.4); Carbon Dioxide 20 mmol/L (22-30); Chloride 98 mmol/L (96-108); Globulin 3.3 gm/dL (2.2-3.7); Glomerular Filtration Rate 27; Glucose 101 mg/dL (70-105); Phosphorous 2.7 mg/dL (2.5-4.5)
[2022-04-24 21:00] LABS: INR 1.2 (0.9-1.1)
[2022-04-24] MEDS ORDERED: chlordiazePOXIDE 25 MG CAPSULE PO PRN (21:01)
[2022-04-24] MEDS ORDERED: METOPROLOL TARTRATE 5 MG/5 ML VIAL IV PRN (21:01)
[2022-04-24] MEDS ORDERED: 0.9 % SODIUM CHLORIDE 1,000 ML IV ONE (21:01)
[2022-04-24] MEDS ORDERED: POTASSIUM CHLORIDE 20 MEQ TABLET PO PRN ×2 (21:01)
[2022-04-24] MEDS ORDERED: cloNIDine HCL 0.1 MG TABLET PO PRN (21:01)
[2022-04-24] MEDS ORDERED: ONDANSETRON 4 MG/2 ML VIAL IV PRN (21:01)
[2022-04-24] MEDS ORDERED: ACETAMINOPHEN 325 MG TABLET PO PRN (21:01)
[2022-04-24] MEDS ORDERED: IPRATROPIUM/ALBUTEROL 3 ML AMPUL.NEB NEB PRN (21:01)
[2022-04-24] MEDS ORDERED: LABETALOL 5 MG/ML ML IV PRN (21:01)
[2022-04-24] MEDS ORDERED: HALOPERIDOL LACTATE 5 MG/ML VIAL IM PRN (21:01)
[2022-04-24] MEDS ORDERED: POTASSIUM CHLORIDE 40 MEQ in DEXTROSE 5% IN WATER 500 ML IV PRN (21:01)
[2022-04-24] MEDS ORDERED: MAGNESIUM SULFATE 2 GM/50 ML BAG IV PRN (21:01)
[2022-04-24] MEDS: POLYETHYLENE GLYCOL 3350 17 GM PACKET PO PRN (21:28)
[2022-04-24] MEDS: FOLIC ACID 1 MG TABLET PO SCH (21:28)
[2022-04-24] MEDS: DOCUSATE SODIUM 100 MG CAPSULE PO SCH (21:28)
[2022-04-24] MEDS: THIAMINE 100 MG in 0.9 % SODIUM CHLORIDE 50 ML IV SCH (21:33)
[2022-04-24] MEDS: 0.9 % SODIUM CHLORIDE 10 ML SYRINGE IV SCH (21:34)
[2022-04-24] MEDS ORDERED: THIAMINE 100 MG/ML VIAL ONE (21:42)
[2022-04-24] MEDS ORDERED: 0.9 % SODIUM CHLORIDE 10 ML SYRINGE IV SCH (22:00)
[2022-04-25] MEDS: 0.9 % SODIUM CHLORIDE 10 ML SYRINGE IV SCH ×3 (06:06→21:03)
[2022-04-25 06:50] LABS: Basophils # (Auto) 0.03 K/mcL (0.00-0.30); Basophils % (Auto) 0.4 % (0.0-2.0); Eosinophils # (Auto) 0.09 K/mcL (0.00-0.70); Eosinophils % (Auto) 1.3 % (0.0-7.0); Hematocrit 29.2 % (40.1-51.0); Hemoglobin 9.6 g/dL (13.7-17.5); Lymphocytes # (Auto) 1.22 K/mcL (1.50-4.80); Lymphocytes % (Auto) 17.1 % (15.5-49.0); Mean Cell Volume 114.5 fL (80.0-100.0); Mean Corpuscular HGB Conc 32.9 g/dL (31.0-36.0); Mean Platelet Volume 9.9 fL (8.8-12.5); Monocytes # (Auto) 0.71 K/mcL (0.10-0.90); Neutrophils % (Auto) 70.5 % (38.0-78.0); Platelet Count 150 K/mcL (140-440); RBC 2.55 M/mcL (4.63-6.08); Red Cell Distribution Width 15.2 % (11.5-14.5); WBC 7.1 K/mcL (4.5-11.0)
[2022-04-25 07:16] LABS: ALT/SGPT 25 U/L (<40); AST/SGOT 52 U/L (<40); Albumin 2.9 gm/dL (3.2-5.2); Alkaline Phosphatase 133 U/L (39-117); Bilirubin,Direct 0.8 mg/dL (<0.3); Bilirubin,Total 1.3 mg/dL (0.1-1.0); Blood Urea Nitrogen 15 mg/dL (8-23); Calcium 8.2 mg/dL (8.6-10.4); Carbon Dioxide 22 mmol/L (22-30); Chloride 103 mmol/L (96-108); Glomerular Filtration Rate 34; Glucose 93 mg/dL (70-105); Lactate Dehydrogenase 196 U/L (135-225); Phosphorous 2.5 mg/dL (2.5-4.5); Triglycerides 155 mg/dL (<150); Uric Acid 8.4 mg/dL (2.5-8.0)
--- NOTE | 2022-04-25 07:41 | Internal Med Progress Note ---
SUBJECTIVE Subjective Patient information: Note initiated : 04/25/22 at 7:37 am Service Date, if different from initiated Date: [] Patient: José Manuel Centeno 71 y/o M admitted on 04/24/22 for Fall/Weakness. Chief Complaint: [] Interval history: History of present illness: Mr. Centeno is a 71 year old M Presents to the ED after falling several times. Patient was seen by her primary care physician to establish care and per the patient and 's complaint he had left-sided weakness which has been going on for about a year but progressing. When asking why he is here he says left-sided weakness left leg more than arm. He has fallen several times in the past couple days which is the reason was brought him in. There is also report of facial drooping but on examination he does not have any drooping and he does not recall having any drooping. On physical examination appears he has symmetrical strength bilaterally, weak bilaterally but symmetrical. Yes Tobacco tell if there is weakness I said no noticeable weakness on exam. And then I asked him about whether he felt actual focal weakness or did he feel like he was falling because he had balance issues and he said it was related more to balance issues. I stood him up at bedside and held his hands. Asked if I let go of his hands while standing would he be able to stand on his own he said he would likely fall backwards. I gradually let go but he quickly grabbed my hands. I sat him back down in bed. Patient says he shuffles when he walks at home. Get the sense of confabulation at times and of note on hospitalization last year there is concern for Warnicke Korsakoff syndrome. Patient is a chronic alcohol abuser and typically would drinks 1/5 of whiskey daily but he says he is down to 8 ounces of Chardonnay a day. States last drink was couple days ago and refuses a beer for any withdrawal symptoms and denies any withdrawal symptoms. He was scheduled for an MRI of the brain tomorrow morning by his PCP. CT head noncontrast in the ED today showed mild atrophy and chronic ischemic changes but no focal pathology. 04/25 No overnight event or new complaints. MRI shows no acute pathology or stroke, waiting for official report. Patient reports constipation. Review of Systems: denies headache/fever/chills/nausea/vomiting/chest or abdominal pain/cough/dyspnea/diarrhea. Otherwise see above. Constitutional Vitals: Vital Signs Temp Pulse Resp BP Pulse Ox O2 Del Method 97.1 F 77 18 145/83 96 04/25/22 04:01 04/25/22 06:01 04/25/22 06:01 04/25/22 06:01 04/25/22 06:01 04/25/22 06:01 Period Temp Pulse Resp BP Sys/Valencia Pulse Ox O2 Del Method O2 Flow Rate Last 24 Hr 97.1 F-100.1 F 69-87 115-154/66-105 93-99 Room Air-Room Air Intake and Output 04/24/22 04/25/22 04/25/22 21:59 05:59 13:59 Intake Total 500 288 Output Total 350 250 Balance 500 -62 -250 Weight 86.183 kg Intake & Output: Intake & Output 04/24/22 04/25/22 04/25/22 21:59 05:59 13:59 Intake Total 500 288 Output Total 350 250 Balance 500 -62 -250 Weight 86.183 kg Intake: IV 500 88 Sodium Chloride 0.9% 1,000 ml @ 88 100 mls/hr IV .Q10H ONE Rx#: [id number] Sodium Chloride 0.9% 500 ml @ 500 Wide Open IV BOLUS ONE Rx#: [id number] Oral 200 Output: Void Amount 350 250 Other: Urine Appearance Clear Clear Urine Color Light Faviola Dark Yellow Urine Odor Normal Exam: General: Alert, Awake, No acute Distress Eyes/N/T: EOMI, Head/Neck: neck supple, CV: RRR, No murmurs, Pulm: Clear b/l, no wheezing/rhonchi/rales Abd: soft, nontender, +BS x4 Ext: no clubbing/cyanosis/edema Neuro: Alert, moves all extremities, symmetrical strength b/l upper/lower although generally weak Skin: warm/dry OBJ DATA Labs CBC & Chem 7: 04/25/22 05:00 04/25/22 05:00 Labs: Abnormal Lab Results 04/25/22 04/25/22 04/24/22 05:00 05:00 17:15 RBC 2.55 L Hgb 9.6 L Hct 29.2 L POC Hct 34.0 L MCV 114.5 H MCH 37.6 H RDW 15.2 H Immature Gran % (Auto) 0.7 H Lymph % (Auto) Lymph # (Auto) 1.22 L [place] # (Auto) PT INR Carbon Dioxide Anion Gap Creatinine 1.9 H POC Creatinine 2.3 H Uric Acid 8.4 H Calcium 8.2 L POC WB Ioniz Calcium 1.12 L Magnesium 2.6 H Total Bilirubin 1.3 H Direct Bilirubin 0.8 H GGT 466 H AST 52 H Alkaline Phosphatase 133 H Albumin 2.9 L Triglycerides 155 H Urine Protein Urine Ketones Urine Urobilinogen Urine RBC Urine Mucus Ethyl Alcohol g/dL 04/24/22 04/24/22 04/24/22 17:09 17:09 17:09 RBC Hgb Hct POC Hct MCV MCH RDW Immature Gran % (Auto) Lymph % (Auto) Lymph # (Auto) [place] # (Auto) PT 16.0 H INR 1.2 H Carbon Dioxide 20 L Anion Gap 18.0 H Creatinine 2.3 H POC Creatinine Uric Acid Calcium POC WB Ioniz Calcium Magnesium Total Bilirubin 1.2 H Direct Bilirubin 0.7 H GGT AST 56 H Alkaline Phosphatase 153 H Albumin Triglycerides Urine Protein Urine Ketones Urine Urobilinogen Urine RBC Urine Mucus Ethyl Alcohol g/dL 0.013 H 04/24/22 04/24/22 17:09 16:44 RBC 2.79 L Hgb 10.6 L Hct 31.3 L POC Hct MCV 112.2 H MCH 38.0 H RDW 14.9 H Immature Gran % (Auto) Lymph % (Auto) 13.9 L Lymph # (Auto) 1.36 L [place] # (Auto) 0.93 H PT INR Carbon Dioxide Anion Gap Creatinine POC Creatinine Uric Acid Calcium POC WB Ioniz Calcium Magnesium Total Bilirubin Direct Bilirubin GGT AST Alkaline Phosphatase Albumin Triglycerides Urine Protein 30 A Urine Ketones 5 A Urine Urobilinogen 4.0 A Urine RBC 7 H Urine Mucus Few A Ethyl Alcohol g/dL Meds: Medications Acetaminophen (Acetaminophen 325 Mg Tablet) 650 mg PO Q6HP PRN; Protocol PRN Reason: Per Pain Protocol/Fever > 101 Albuterol/Ipratropium (Ipratropium/Albuterol 3 Ml Ampul.Neb) 3 ml NEB Q4HP PRN PRN Reason: Shortness Of Breath Chlordiazepoxide HCl (Chlordiazepoxide 25 Mg Capsule) 25 mg PO UD PRN; Protocol PRN Reason: Alcohol Withdrawal/Assess CIWA Clonidine HCl (Clonidine Hcl 0.1 Mg Tablet) 0.1 mg PO Q4HP PRN PRN Reason: ALC Docusate Sodium (Docusate Sodium 100 Mg Capsule) 100 mg PO BID [facility] Last Admin: 04/24/22 21:28 Dose: 100 mg Folic Acid (Folic Acid 1 Mg Tablet) 5 mg PO DAILY [facility] Last Admin: 04/24/22 21:28 Dose: 5 mg Haloperidol Lactate (Haloperidol Lactate 5 Mg/Ml Vial) 0.5 mg IM Q2HP PRN PRN Reason: Alcohol Withdrawal/Assess CIWA Potassium Chloride 40 meq/ (Dextrose) 520 mls @ 130 mls/hr IV UD PRN PRN Reason: Potassium < 3 Magnesium Sulfate (Magnesium Sulfate) 2 gm in 50 mls @ 50 mls/hr IV UD PRN PRN Reason: Magnesium </= 1.6 Thiamine HCl 100 mg/ Sodium (Chloride) 51 mls @ 50 mls/hr IV TID [facility] Stop: 04/25/22 16:02 Last Admin: 04/24/22 21:33 Dose: 50 mls/hr Potassium Chloride 20 meq/Magnesium Sulfate 16.24 meq/Thiamine HCl 100 mg/Multivitamins/Minerals 10 ml/Sodium Chloride 1,025 mls @ 150 mls/hr IV Q24H [facility] Last Admin: 04/24/22 22:18 Dose: 150 mls/hr Iron Carb/Multivit/[place]/Folic Acid (Multivit,Ther Iron,Ca,Fa & Min 1 Tablet) 1 tab PO DAILY [facility] Labetalol HCl (Labetalol 5 Mg/Ml Ml) 0 mg IV Q2HP PRN PRN Reason: Hypertension Lorazepam (Lorazepam 2 Mg/Ml Vial) 0 mg IV UD PRN; Protocol PRN Reason: Alcohol Withdrawal/Assess CIWA Metoprolol Tartrate (Metoprolol Tartrate 5 Mg/5 Ml Vial) 5 mg IV Q2HP PRN PRN Reason: Tachyarrhythmias HR>110 Ondansetron HCl (Ondansetron 4 Mg/2 Ml Vial) 4 mg IV Q4HP PRN PRN Reason: Nausea And Vomiting Pantoprazole Sodium (Pantoprazole 40 Mg Tablet) 40 mg PO QAMAC [facility] Polyethylene Glycol (Polyethylene Glycol 3350 17 Gm Packet) 17 gm PO DAILYP PRN PRN Reason: Constipation Last Admin: 04/24/22 21:28 Dose: 17 gm Potassium Chloride (Potassium Chloride 20 Meq Tablet) 40 meq PO UD PRN PRN Reason: Potssium is 3-3.5 Potassium Chloride (Potassium Chloride 20 Meq Tablet) 40 meq PO UD PRN PRN Reason: Potassium < 3 Senna (Sennosides 1 Tablet) 2 tab PO DAILYP PRN PRN Reason: Constipation Sodium Chloride (0.9 % Sodium Chloride 10 Ml Syringe) 10 ml IV Q8 NANCY Last Admin: 04/25/22 06:06 Dose: 10 ml A/P Narrative A/P Narrative: A: *Generalized weakness/deconditioning/debility/falling and ataxia: initial concern for CVA *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 dementia: *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: *Etoh abuse: *HARJINDER on CKD IIIb: improving *Chronic macrocytic anemia w/Folate deficiency: *Parox Afib: currently sinus rhythm, on eliquis/BB *h/o grade II diastolic dysfxn: *HTN/HLD: *Fatty Liver: *h/o Gout: *GERD: P: -MRI brain -thiamine -CIWA -folate supp -cont home BB/Dilt, hold ACEI for harjinder -f/u renal fxn -pt/ot -CM for placement needs -ppx: apixaban / ppi Time Spent With Patient Time: Total time spent is greater than 50% in coordination of care (as documented) at patient's floor/unit and/or counseling patient: Total time spent with greater than 50% in coordination of care (as documented) at patient's floor/unit and/or counseling patient:: 25 - 35 minutes
[2022-04-25] MEDS ORDERED: POTASSIUM CHLORIDE 20 MEQ, MAGNESIUM SULFATE 16.24 MEQ, THIAMINE 100 MG, MVI, ADULT NO.... IV ONE (07:44)
[2022-04-25] MEDS ORDERED: MIRTAZAPINE 15 MG TABLET PO PRN (07:45)
[2022-04-25] MEDS ORDERED: COLCHICINE 0.6 MG CAPSULE PO PRN (07:48)
[2022-04-25] MEDS: CARVEDILOL 12.5 MG TABLET PO SCH ×2 (07:56→16:48)
[2022-04-25] MEDS: PANTOPRAZOLE 40 MG TABLET PO SCH (07:56)
[2022-04-25] MEDS: APIXABAN 5 MG TABLET PO SCH ×2 (08:33→21:03)
[2022-04-25] MEDS: GABAPENTIN 300 MG CAPSULE PO SCH ×2 (08:33→21:03)
[2022-04-25] MEDS: DOCUSATE SODIUM 100 MG CAPSULE PO SCH ×2 (08:33→21:03)
[2022-04-25] MEDS: FOLIC ACID 1 MG TABLET PO SCH (08:33)
[2022-04-25] MEDS: MULTIVIT,THER IRON,CA,FA & MIN 1 TABLET PO SCH (08:33)
[2022-04-25] MEDS ORDERED: DILTIAZEM HCL 60 MG PO SCH (09:00)
[2022-04-25] MEDS ORDERED: [UNRECOGNIZED DRUG - OTHER] PO SCH (09:00)
[2022-04-25] MEDS: THIAMINE 100 MG in 0.9 % SODIUM CHLORIDE 50 ML IV SCH ×2 (10:18→15:15)
--- NOTE | 2022-04-25 11:29 | Magnetic Resonance Report ---
CLINICAL INFORMATION: Left-sided weakness and facial drooping evaluate for CVA COMPARISON: Head CT 04/24/2022 TECHNIQUE:Sagittal T1 FLAIR, T2 FLAIR propeller, T2 propeller, diffusion, and ADC images were acquired. FINDINGS: The ventricles, sulci, fissures and cisterns are symmetrically enlarged compatible with mild age-related atrophy. No extra-axial fluid collections or mass appreciated. Scattered chronic ischemic disease foci in the deep cerebral white matter is less than typically seen in this age group. There are no regions of restricted diffusion to suggest acute infarct. No hemorrhage, mass effect, edema or other acute findings. The signal void in intracerebral arteries, extra-axial cranial nerves, pituitary and orbits are all normal. IMPRESSION: Mild atrophy and minimal chronic senescent ischemic changes in the deep cerebral white matter less then typical for age. No evidence of acute infarct or other acute intracerebral abnormality Interpreted and Authenticated by: Arpan Tsai 04/25/22
[2022-04-25] MEDS: POLYETHYLENE GLYCOL 3350 17 GM PACKET PO PRN (12:13)
[2022-04-25] MEDS ORDERED: ROSUVASTATIN 10 MG TABLET PO SCH (21:00)
[2022-04-25] MEDS: ATORVASTATIN 20 MG TABLET PO SCH (21:03)
[2022-04-25] MEDS ORDERED: GABAPENTIN 300 MG CAPSULE PO ONE (21:49)
[2022-04-25] MEDS ORDERED: GABAPENTIN 300 MG CAPSULE PO SCH (21:50)
[2022-04-25] MEDS ORDERED: GABAPENTIN 300 MG CAPSULE ONE (22:16)
[2022-04-26] MEDS: 0.9 % SODIUM CHLORIDE 10 ML SYRINGE IV SCH ×3 (05:44→20:48)
[2022-04-26 06:52] LABS: ALT/SGPT 30 U/L (<40); AST/SGOT 63 U/L (<40); Albumin 2.4 gm/dL (3.2-5.2); Albumin/Globulin Ratio 0.9 (1.0-2.3); Alkaline Phosphatase 135 U/L (39-117); Bilirubin,Direct 0.7 mg/dL (<0.3); Blood Urea Nitrogen 14 mg/dL (8-23); Calcium 7.7 mg/dL (8.6-10.4); Carbon Dioxide 21 mmol/L (22-30); Chloride 104 mmol/L (96-108); Globulin 2.8 gm/dL (2.2-3.7); Glomerular Filtration Rate 32; Glucose 96 mg/dL (70-105); Lactate Dehydrogenase 168 U/L (135-225); Phosphorous 2.4 mg/dL (2.5-4.5); Triglycerides 147 mg/dL (<150); Uric Acid 7.3 mg/dL (2.5-8.0)
[2022-04-26] MEDS: CARVEDILOL 12.5 MG TABLET PO SCH (07:46)
[2022-04-26] MEDS: SENNOSIDES 1 TABLET PO PRN (07:46)
[2022-04-26] MEDS: PANTOPRAZOLE 40 MG TABLET PO SCH (07:46)
--- NOTE | 2022-04-26 08:48 | Internal Med Progress Note ---
SUBJECTIVE Subjective Patient information: Note initiated : 04/26/22 at 8:45 am Service Date, if different from initiated Date: [] Patient: José Manuel Centeno 71 y/o M admitted on 04/24/22 for Fall/Weakness. Chief Complaint: [] Interval history: History of present illness: Mr. Centeno is a 71 year old M Presents to the ED after falling several times. Patient was seen by her primary care physician to establish care and per the patient and 's complaint he had left-sided weakness which has been going on for about a year but progressing. When asking why he is here he says left-sided weakness left leg more than arm. He has fallen several times in the past couple days which is the reason was brought him in. There is also report of facial drooping but on examination he does not have any drooping and he does not recall having any drooping. On physical examination appears he has symmetrical strength bilaterally, weak bilaterally but symmetrical. Yes Tobacco tell if there is weakness I said no noticeable weakness on exam. And then I asked him about whether he felt actual focal weakness or did he feel like he was falling because he had balance issues and he said it was related more to balance issues. I stood him up at bedside and held his hands. Asked if I let go of his hands while standing would he be able to stand on his own he said he would likely fall backwards. I gradually let go but he quickly grabbed my hands. I sat him back down in bed. Patient says he shuffles when he walks at home. Get the sense of confabulation at times and of note on hospitalization last year there is concern for Warnicke Korsakoff syndrome. Patient is a chronic alcohol abuser and typically would drinks 1/5 of whiskey daily but he says he is down to 8 ounces of Chardonnay a day. States last drink was couple days ago and refuses a beer for any withdrawal symptoms and denies any withdrawal symptoms. He was scheduled for an MRI of the brain tomorrow morning by his PCP. CT head noncontrast in the ED today showed mild atrophy and chronic ischemic changes but no focal pathology. 04/25 No overnight event or new complaints. MRI shows no acute pathology or stroke, waiting for official report. Patient reports constipation. 04/26 Patient reports no new complaints. However his urine output decreased overnight. And is tea colored per nursing. Blood pressure and systolic in the 90s overnight although she did have 1 at 8:00 this morning which was 134. Heart rate 59-60s. Decrease Coreg today. Review of Systems: denies headache/fever/chills/nausea/vomiting/chest or abdominal pain/cough/dyspnea/diarrhea. Otherwise see above. Constitutional Vitals: Vital Signs Temp Pulse Resp BP Pulse Ox O2 Del Method O2 Flow Rate 98.7 F 73 14 134/75 96 0 04/26/22 08:00 04/26/22 08:00 04/26/22 08:00 04/26/22 08:00 04/26/22 08:00 04/26/22 08:00 04/25/22 20:01 Period Temp Pulse Resp BP Sys/Valencia Pulse Ox O2 Del Method O2 Flow Rate Last 24 Hr 98.2 F-98.7 F 59-73 11-20 92-134/53-80 93-99 Room Air-Room Air 0 Intake and Output 04/25/22 04/26/22 04/26/22 21:59 05:59 13:59 Intake Total 1076 50 Output Total 300 150 Balance 776 50 -150 Weight 87.543 kg Intake & Output: Intake & Output 04/25/22 04/26/22 04/26/22 21:59 05:59 13:59 Intake Total 1076 50 Output Total 300 150 Balance 776 50 -150 Weight 87.543 kg Intake: IV 1076 Potassium Chloride 20 Meq 1025 Magnesium Sulfate 16.24 Meq Vitamin B1 100 mg Infuvite Adult 10 ml In Sodium Chloride 0.9% 1,000 ml @ 150 mls/hr IV Q24H ONE Rx#:[id number] Vitamin B1 100 mg In Sodium 51 Chloride 0.9% 50 ml @ 50 mls/hr IV TID NANCY Rx#:[id number] Oral 50 Output: Void Amount 300 150 Other: Meal Dinner Percent of Meal Consumed 75% Feeding Ability Assist with Tray Set Up Urine Appearance Clear Clear Urine Color Light Faviola Tea Colored Urine Odor Strong Strong Exam: General: Alert, Awake, No acute Distress Eyes/N/T: EOMI, Head/Neck: neck supple, CV: RRR, No murmurs, Pulm: Clear b/l, no wheezing/rhonchi/rales Abd: soft, nontender, +BS x4 Ext: no clubbing/cyanosis/edema Neuro: Alert, moves all extremities, symmetrical strength b/l upper/lower although generally weak Skin: warm/dry OBJ DATA Labs CBC & Chem 7: 04/25/22 05:00 04/26/22 05:07 Labs: Abnormal Lab Results 04/26/22 04/25/22 04/25/22 05:07 05:00 05:00 RBC 2.55 L Hgb 9.6 L Hct 29.2 L POC Hct MCV 114.5 H MCH 37.6 H RDW 15.2 H Immature Gran % (Auto) 0.7 H Lymph % (Auto) Lymph # (Auto) 1.22 L [place] # (Auto) PT INR Carbon Dioxide 21 L Anion Gap Creatinine 2.0 H 1.9 H POC Creatinine Uric Acid 8.4 H Calcium 7.7 L 8.2 L POC WB Ioniz Calcium Phosphorus 2.4 L Magnesium 2.7 H 2.6 H Total Bilirubin 1.3 H Direct Bilirubin 0.7 H 0.8 H GGT 417 H 466 H AST 63 H 52 H Alkaline Phosphatase 135 H 133 H Total Protein 5.2 L Albumin 2.4 L 2.9 L Albumin/Globulin Ratio 0.9 L Triglycerides 155 H Urine Protein Urine Ketones Urine Urobilinogen Urine RBC Urine Mucus Ethyl Alcohol g/dL 04/24/22 04/24/22 04/24/22 17:15 17:09 17:09 RBC Hgb Hct POC Hct 34.0 L MCV MCH RDW Immature Gran % (Auto) Lymph % (Auto) Lymph # (Auto) [place] # (Auto) PT 16.0 H INR 1.2 H Carbon Dioxide 20 L Anion Gap 18.0 H Creatinine 2.3 H POC Creatinine 2.3 H Uric Acid Calcium POC WB Ioniz Calcium 1.12 L Phosphorus Magnesium Total Bilirubin 1.2 H Direct Bilirubin 0.7 H GGT AST 56 H Alkaline Phosphatase 153 H Total Protein Albumin Albumin/Globulin Ratio Triglycerides Urine Protein Urine Ketones Urine Urobilinogen Urine RBC Urine Mucus Ethyl Alcohol g/dL 04/24/22 04/24/22 04/24/22 17:09 17:09 16:44 RBC 2.79 L Hgb 10.6 L Hct 31.3 L POC Hct MCV 112.2 H MCH 38.0 H RDW 14.9 H Immature Gran % (Auto) Lymph % (Auto) 13.9 L Lymph # (Auto) 1.36 L [place] # (Auto) 0.93 H PT INR Carbon Dioxide Anion Gap Creatinine POC Creatinine Uric Acid Calcium POC WB Ioniz Calcium Phosphorus Magnesium Total Bilirubin Direct Bilirubin GGT AST Alkaline Phosphatase Total Protein Albumin Albumin/Globulin Ratio Triglycerides Urine Protein 30 A Urine Ketones 5 A Urine Urobilinogen 4.0 A Urine RBC 7 H Urine Mucus Few A Ethyl Alcohol g/dL 0.013 H Meds: Medications Acetaminophen (Acetaminophen 325 Mg Tablet) 650 mg PO Q6HP PRN; Protocol PRN Reason: Per Pain Protocol/Fever > 101 Albuterol/Ipratropium (Ipratropium/Albuterol 3 Ml Ampul.Neb) 3 ml NEB Q4HP PRN PRN Reason: Shortness Of Breath Apixaban (Apixaban 5 Mg Tablet) 5 mg PO BID [facility] Last Admin: 04/25/22 21:03 Dose: 5 mg Atorvastatin Calcium (Atorvastatin 20 Mg Tablet) 20 mg PO HS [facility] Last Admin: 04/25/22 21:03 Dose: 20 mg Carvedilol (Carvedilol 12.5 Mg Tablet) 25 mg PO BIDCC [facility] Last Admin: 04/26/22 07:46 Dose: 25 mg Chlordiazepoxide HCl (Chlordiazepoxide 25 Mg Capsule) 25 mg PO UD PRN; Protocol PRN Reason: Alcohol Withdrawal/Assess CIWA Clonidine HCl (Clonidine Hcl 0.1 Mg Tablet) 0.1 mg PO Q4HP PRN PRN Reason: ALC Colchicine (Colchicine 0.6 Mg Capsule) 0.6 mg PO QDP PRN PRN Reason: gout Docusate Sodium (Docusate Sodium 100 Mg Capsule) 100 mg PO BID [facility] Last Admin: 04/25/22 21:03 Dose: 100 mg Folic Acid (Folic Acid 1 Mg Tablet) 5 mg PO DAILY [facility] Last Admin: 04/25/22 08:33 Dose: 5 mg Gabapentin (Gabapentin 300 Mg Capsule) 600 mg PO HS [facility] Gabapentin (Gabapentin 300 Mg Capsule) 300 mg PO DAILY [facility] Haloperidol Lactate (Haloperidol Lactate 5 Mg/Ml Vial) 0.5 mg IM Q2HP PRN PRN Reason: Alcohol Withdrawal/Assess CIWA Potassium Chloride 40 meq/ (Dextrose) 520 mls @ 130 mls/hr IV UD PRN PRN Reason: Potassium < 3 Magnesium Sulfate (Magnesium Sulfate) 2 gm in 50 mls @ 50 mls/hr IV UD PRN PRN Reason: Magnesium </= 1.6 Iron Carb/Multivit/[place]/Folic Acid (Multivit,Ther Iron,Ca,Fa & Min 1 Tablet) 1 tab PO DAILY [facility] Last Admin: 04/25/22 08:33 Dose: 1 tab Labetalol HCl (Labetalol 5 Mg/Ml Ml) 0 mg IV Q2HP PRN PRN Reason: Hypertension Lorazepam (Lorazepam 2 Mg/Ml Vial) 0 mg IV UD PRN; Protocol PRN Reason: Alcohol Withdrawal/Assess CIWA Metoprolol Tartrate (Metoprolol Tartrate 5 Mg/5 Ml Vial) 5 mg IV Q2HP PRN PRN Reason: Tachyarrhythmias HR>110 Mirtazapine (Mirtazapine 15 Mg Tablet) 0 mg PO HSP PRN PRN Reason: Insomnia Ondansetron HCl (Ondansetron 4 Mg/2 Ml Vial) 4 mg IV Q4HP PRN PRN Reason: Nausea And Vomiting Pantoprazole Sodium (Pantoprazole 40 Mg Tablet) 40 mg PO QAMAC [facility] Last Admin: 04/26/22 07:46 Dose: 40 mg Polyethylene Glycol (Polyethylene Glycol 3350 17 Gm Packet) 17 gm PO DAILYP PRN PRN Reason: Constipation Last Admin: 04/25/22 12:13 Dose: 17 gm Potassium Chloride (Potassium Chloride 20 Meq Tablet) 40 meq PO UD PRN PRN Reason: Potssium is 3-3.5 Potassium Chloride (Potassium Chloride 20 Meq Tablet) 40 meq PO UD PRN PRN Reason: Potassium < 3 Senna (Sennosides 1 Tablet) 2 tab PO DAILYP PRN PRN Reason: Constipation Last Admin: 04/26/22 07:46 Dose: 2 tab Sodium Chloride (0.9 % Sodium Chloride 10 Ml Syringe) 10 ml IV Q8 [facility] Last Admin: 04/26/22 05:44 Dose: 10 ml A/P Narrative A/P Narrative: 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 dementia: *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: *Etoh abuse: *HARJINDER on CKD IIIb: improving *Chronic macrocytic anemia w/Folate deficiency: *Parox Afib: currently sinus rhythm, on eliquis/BB *h/o grade II diastolic dysfxn: *HTN/HLD: *Fatty Liver: *h/o Gout: *GERD: P: -CIWA -thiamine -folate supp -decrease home coreg for soft BP, hold ACEI for harjinder -pt/ot -CM for placement needs -ppx: apixaban / ppi Time Spent With Patient Time: Total time spent is greater than 50% in coordination of care (as documented) at patient's floor/unit and/or counseling patient: Total time spent with greater than 50% in coordination of care (as documented) at patient's floor/unit and/or counseling patient:: 25 - 35 minutes
[2022-04-26] MEDS: FOLIC ACID 1 MG TABLET PO SCH (08:55)
[2022-04-26] MEDS: GABAPENTIN 300 MG CAPSULE PO SCH ×2 (08:56→20:48)
[2022-04-26] MEDS: MULTIVIT,THER IRON,CA,FA & MIN 1 TABLET PO SCH (08:56)
[2022-04-26] MEDS: APIXABAN 5 MG TABLET PO SCH ×2 (08:56→20:48)
[2022-04-26] MEDS: DOCUSATE SODIUM 100 MG CAPSULE PO SCH ×2 (08:56→20:48)
[2022-04-26] MEDS ORDERED: LACTATED RINGERS 1,000 ML IV ONE (10:42)
--- NOTE | 2022-04-26 10:59 | Discharge Summary ---
Discharge Provider Provider IMPORTANT FOLLOW-UP INFORMATION FOR PCP: Patient information: Note initiated : 04/26/22 at 10:57 am Service Date, if different from initiated Date: [] Patient: José Manuel Centeno 71 y/o M admitted on 04/24/22 for Fall/Weakness. Chief Complaint: [] Date of admission: 04/24/22 20:34 Primary care physician: Arpan Pro DO Consults: 04/24/22 Consult to Physician [CONS] Stat Comment: Consulting Provider: [place] Reason For Exam: Physician to Consult COURSE Hospital Course Hospital course: History of present illness: Mr. Centeno is a 71 year old M Presents to the ED after falling several times. Patient was seen by her primary care physician to establish care and per the patient and 's complaint he had left-sided weakness which has been going on for about a year but progressing. When asking why he is here he says left-sided weakness left leg more than arm. He has fallen several times in the past couple days which is the reason was brought him in. There is also report of facial drooping but on examination he does not have any drooping and he does not recall having any drooping. On physical examination appears he has symmetrical strength bilaterally, weak bilaterally but symmetrical. Yes Tobacco tell if there is weakness I said no noticeable weakness on exam. And then I asked him about whether he felt actual focal weakness or did he feel like he was falling because he had balance issues and he said it was related more to balance issues. I stood him up at bedside and held his hands. Asked if I let go of his hands while standing would he be able to stand on his own he said he would likely fall backwards. I gradually let go but he quickly grabbed my hands. I sat him back down in bed. Patient says he shuffles when he walks at home. Get the sense of confabulation at times and of note on hospitalization last year there is concern for Warnicke Korsakoff syndrome. Patient is a chronic alcohol abuser and typically would drinks 1/5 of whiskey daily but he says he is down to 8 ounces of Chardonnay a day. States last drink was couple days ago and refuses a beer for any withdrawal symptoms and denies any withdrawal symptoms. He was scheduled for an MRI of the brain tomorrow morning by his PCP. CT head noncontrast in the ED today showed mild atrophy and chronic ischemic changes but no focal pathology. 04/25 No overnight event or new complaints. MRI shows no acute pathology or stroke, waiting for official report. Patient reports constipation. 04/26 Patient reports no new complaints. However his urine output decreased overnight. And is tea colored per nursing. Blood pressure and systolic in the 90s overnight although she did have 1 at 8:00 this morning which was 134. Heart rate 59-60s. Decrease Coreg today. 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 fib history of diastolic heart failure hypertension hyperlipidemia fatty liver gout GERD Time Spent with Patient Time attestation: Total time spent providing and/or coordinating discharge services: Time spent: Greater than 30 minutes EXAM Constitutional Vitals: Temp Pulse Resp BP Pulse Ox O2 Del Method O2 Flow Rate 98.7 F 59 L 19 99/57 96 0 04/26/22 08:00 04/26/22 10:01 04/26/22 10:01 04/26/22 10:01 04/26/22 10:01 04/26/22 10:01 04/25/22 20:01 Discharge Data Data Completed and Pending Labs on day of discharge: Labs from last 24 hours 04/26/22 05:07 Sodium 135 Potassium 3.9 Chloride 104 Carbon Dioxide 21 L Anion Gap 10.0 BUN 14 Creatinine 2.0 H GFR Calculation 32 Glucose 96 Uric Acid 7.3 Calcium 7.7 L Phosphorus 2.4 L Magnesium 2.7 H Total Bilirubin 1.0 Direct Bilirubin 0.7 H GGT 417 H AST 63 H ALT 30 Alkaline Phosphatase 135 H Lactate Dehydrogenase 168 Total Protein 5.2 L Albumin 2.4 L Globulin 2.8 Albumin/Globulin Ratio 0.9 L Triglycerides 147 Discharge Plan Patient/Caregiver Discharge Instructions Activity: increase activity as tolerated Diet: Regular Diet Prescriptions: Continued mirtazapine [Remeron] 15 mg tablet See Rx Instructions .ROUTE .COMPLEX Qty: 15 0RF Rx Instructions: 1-2 tabs po qhs prn difficulty sleeping; Eliquis 5 mg tablet 5 mg PO BID omeprazole 20 mg capsule,delayed release(DR/EC) 20 mg PO QDAY colchicine 0.6 mg tablet 0.6 mg PO QDAY PRN (Reason: gout) gabapentin 300 mg capsule 300 mg PO DAILY Label Comments: 300 in AM, 600 in PM Rx Instructions: 1 tab in afternoon and 2 tab HS rosuvastatin 10 MG tablet 10 mg PO HS diltiazem HCl 60 mg Capsule,Extended Release 12 Hr 60 mg PO DAILY gabapentin 300 mg capsule 600 mg PO HS No Action carvedilol 25 mg tablet 25 mg PO BID Rx Instructions: must administer with a meal/food lisinopril 20 mg tablet 20 mg PO QDAY Follow Up Plan Follow up with: Arpan Pro DO [Primary Care Provider] - Patient Disposition: Xfer SNF Rehab Potential: Fair I certify that the patient requires SNF services: Yes Overall status at discharge: patient is progressing back to baseline
[2022-04-26] MEDS: ATORVASTATIN 20 MG TABLET PO SCH (20:48)
[2022-04-27] MEDS: 0.9 % SODIUM CHLORIDE 10 ML SYRINGE IV SCH ×3 (04:19→21:34)
[2022-04-27 05:56] LABS: Blood Urea Nitrogen 19 mg/dL (8-23); Carbon Dioxide 22 mmol/L (22-30); Chloride 106 mmol/L (96-108); Glomerular Filtration Rate 34; Glucose 102 mg/dL (70-105)
--- NOTE | 2022-04-27 07:27 | Internal Med Progress Note ---
SUBJECTIVE Subjective Patient information: Note initiated : 04/27/22 at 7:26 am Service Date, if different from initiated Date: [] Patient: José Manuel Centeno 71 y/o M admitted on 04/24/22 for Fall/Weakness. Chief Complaint: [] Interval history: History of present illness: Mr. Centeno is a 71 year old M Presents to the ED after falling several times. Patient was seen by her primary care physician to establish care and per the patient and 's complaint he had left-sided weakness which has been going on for about a year but progressing. When asking why he is here he says left-sided weakness left leg more than arm. He has fallen several times in the past couple days which is the reason was brought him in. There is also report of facial drooping but on examination he does not have any drooping and he does not recall having any drooping. On physical examination appears he has symmetrical strength bilaterally, weak bilaterally but symmetrical. Yes Tobacco tell if there is weakness I said no noticeable weakness on exam. And then I asked him about whether he felt actual focal weakness or did he feel like he was falling because he had balance issues and he said it was related more to balance issues. I stood him up at bedside and held his hands. Asked if I let go of his hands while standing would he be able to stand on his own he said he would likely fall backwards. I gradually let go but he quickly grabbed my hands. I sat him back down in bed. Patient says he shuffles when he walks at home. Get the sense of confabulation at times and of note on hospitalization last year there is concern for Warnicke Korsakoff syndrome. Patient is a chronic alcohol abuser and typically would drinks 1/5 of whiskey daily but he says he is down to 8 ounces of Chardonnay a day. States last drink was couple days ago and refuses a beer for any withdrawal symptoms and denies any withdrawal symptoms. He was scheduled for an MRI of the brain tomorrow morning by his PCP. CT head noncontrast in the ED today showed mild atrophy and chronic ischemic changes but no focal pathology. 04/25 No overnight event or new complaints. MRI shows no acute pathology or stroke, waiting for official report. Patient reports constipation. 04/26 Patient reports no new complaints. However his urine output decreased overnight. And is tea colored per nursing. Blood pressure and systolic in the 90s overnight although she did have 1 at 8:00 this morning which was 134. Heart rate 59-60s. Decrease Coreg today. 04/27 Patient clearly has short-term memory loss. When I went in the room he said "who are you". Denies any new complaints or overnight events. Blood pressure better with decreased dosing of Coreg. Review of Systems: denies headache/fever/chills/nausea/vomiting/chest or abdominal pain/cough/dyspnea/diarrhea. Otherwise see above. Constitutional Vitals: Vital Signs Temp Pulse Resp BP Pulse Ox O2 Del Method O2 Flow Rate 99.1 F H 67 18 122/67 97 0 04/27/22 03:03 04/27/22 03:03 04/27/22 03:03 04/27/22 03:03 04/27/22 03:03 04/27/22 03:03 04/25/22 20:01 Period Temp Pulse Resp BP Sys/[place] Pulse Ox O2 Del Method O2 Flow Rate Last 24 Hr 97.4 F-99.4 F 55-73 14-19 99-134/56-75 96-97 Room Air-Room Air Intake and Output 04/26/22 04/27/22 04/27/22 21:59 05:59 13:59 Intake Total 1400 Output Total 650 550 300 Balance -650 850 -300 Weight 91.626 kg Intake & Output: Intake & Output 04/26/22 04/27/22 04/27/22 21:59 05:59 13:59 Intake Total 1400 Output Total 650 550 300 Balance -650 850 -300 Weight 91.626 kg Intake: IV 1000 Lactated Ringers 1,000 ml @ 84 1000 mls/hr IV .[id number] ONE Rx#: [id number] Oral 400 Output: Void Amount 650 550 300 Other: Urine Appearance Clear Urine Color Dark Yellow Urine Odor Normal Exam: General: Alert, Awake, No acute Distress Eyes/N/T: EOMI, Head/Neck: neck supple, CV: RRR, No murmurs, Pulm: Clear b/l, no wheezing/rhonchi/rales Abd: soft, nontender, +BS x4 Ext: no clubbing/cyanosis/edema Neuro: Alert, moves all extremities, no focal deficits Skin: warm/dry OBJ DATA Labs CBC & Chem 7: 04/25/22 05:00 04/27/22 04:59 Labs: Abnormal Lab Results 04/27/22 04/26/22 04/25/22 04:59 05:07 05:00 RBC Hgb Hct POC Hct MCV MCH RDW Immature Gran % (Auto) Lymph % (Auto) Lymph # (Auto) [place] # (Auto) PT INR Carbon Dioxide 21 L Anion Gap Creatinine 1.9 H 2.0 H 1.9 H POC Creatinine Uric Acid 8.4 H Calcium 8.0 L 7.7 L 8.2 L POC WB Ioniz Calcium Phosphorus 2.4 L Magnesium 2.7 H 2.6 H Total Bilirubin 1.3 H Direct Bilirubin 0.7 H 0.8 H GGT 417 H 466 H AST 63 H 52 H Alkaline Phosphatase 135 H 133 H Total Protein 5.2 L Albumin 2.4 L 2.9 L Albumin/Globulin Ratio 0.9 L Triglycerides 155 H Urine Protein Urine Ketones Urine Urobilinogen Urine RBC Urine Mucus Ethyl Alcohol g/dL 04/25/22 04/24/22 04/24/22 05:00 17:15 17:09 RBC 2.55 L Hgb 9.6 L Hct 29.2 L POC Hct 34.0 L MCV 114.5 H MCH 37.6 H RDW 15.2 H Immature Gran % (Auto) 0.7 H Lymph % (Auto) Lymph # (Auto) 1.[address] [place] # (Auto) PT INR Carbon Dioxide 20 L Anion Gap 18.0 H Creatinine 2.3 H POC Creatinine 2.3 H Uric Acid Calcium POC WB Ioniz Calcium 1.12 L Phosphorus Magnesium Total Bilirubin 1.2 H Direct Bilirubin 0.7 H GGT AST 56 H Alkaline Phosphatase 153 H Total Protein Albumin Albumin/Globulin Ratio Triglycerides Urine Protein Urine Ketones Urine Urobilinogen Urine RBC Urine Mucus Ethyl Alcohol g/dL 04/24/22 04/24/22 04/24/22 17:09 17:09 17:09 RBC 2.79 L Hgb 10.6 L Hct 31.3 L POC Hct MCV 112.2 H MCH 38.0 H RDW 14.9 H Immature Gran % (Auto) Lymph % (Auto) 13.9 L Lymph # (Auto) 1.[address] [place] # (Auto) 0.93 H PT 16.0 H INR 1.2 H Carbon Dioxide Anion Gap Creatinine POC Creatinine Uric Acid Calcium POC WB Ioniz Calcium Phosphorus Magnesium Total Bilirubin Direct Bilirubin GGT AST Alkaline Phosphatase Total Protein Albumin Albumin/Globulin Ratio Triglycerides Urine Protein Urine Ketones Urine Urobilinogen Urine RBC Urine Mucus Ethyl Alcohol g/dL 0.013 H 04/24/22 16:44 RBC Hgb Hct POC Hct MCV MCH RDW Immature Gran % (Auto) Lymph % (Auto) Lymph # (Auto) [place] # (Auto) PT INR Carbon Dioxide Anion Gap Creatinine POC Creatinine Uric Acid Calcium POC WB Ioniz Calcium Phosphorus Magnesium Total Bilirubin Direct Bilirubin GGT AST Alkaline Phosphatase Total Protein Albumin Albumin/Globulin Ratio Triglycerides Urine Protein 30 A Urine Ketones 5 A Urine Urobilinogen 4.0 A Urine RBC 7 H Urine Mucus Few A Ethyl Alcohol g/dL Meds: Medications Acetaminophen (Acetaminophen 325 Mg Tablet) 650 mg PO Q6HP PRN; Protocol PRN Reason: Per Pain Protocol/Fever > 101 Albuterol/Ipratropium (Ipratropium/Albuterol 3 Ml Ampul.Neb) 3 ml NEB Q4HP PRN PRN Reason: Shortness Of Breath Apixaban (Apixaban 5 Mg Tablet) 5 mg PO BID [facility] Last Admin: 04/26/22 20:48 Dose: 5 mg Atorvastatin Calcium (Atorvastatin 20 Mg Tablet) 20 mg PO HS [facility] Last Admin: 04/26/22 20:48 Dose: 20 mg [facility]vedil[facility] ([facility] 12[facility]5 Mg [facility] Chlordiazepoxide HCl (Chlordiazepoxide 25 Mg Capsule) 25 mg PO UD PRN; Protocol PRN Reason: Alcohol Withdrawal/Assess CIWA Clonidine HCl (Clonidine Hcl 0.1 Mg Tablet) 0.1 mg PO Q4HP PRN PRN Reason: ALC Colchicine (Colchicine 0.6 Mg Capsule) 0.6 mg PO QDP PRN PRN Reason: gout Docusate Sodium (Docusate Sodium 100 Mg Capsule) 100 mg PO BID [facility] Last Admin: 04/26/22 20:48 Dose: 100 mg Folic Acid (Folic Acid 1 Mg Tablet) 5 mg PO DAILY [facility] Last Admin: 04/26/22 08:55 Dose: 5 mg Gabapentin (Gabapentin 300 Mg Capsule) 600 mg PO HS [facility] Last Admin: 04/26/22 20:48 Dose: 600 mg Gabapentin (Gabapentin 300 Mg Capsule) 300 mg PO DAILY [facility] Last Admin: 04/26/22 08:56 Dose: 300 mg Haloperidol Lactate (Haloperidol Lactate 5 Mg/Ml Vial) 0.5 mg IM Q2HP PRN PRN Reason: Alcohol Withdrawal/Assess CIWA Potassium Chloride 40 meq/ (Dextrose) 520 mls @ 130 mls/hr IV UD PRN PRN Reason: Potassium < 3 Magnesium Sulfate (Magnesium Sulfate) 2 gm in 50 mls @ 50 mls/hr IV UD PRN PRN Reason: Magnesium </= 1.6 Iron Carb/Multivit/[place]/Folic Acid (Multivit,Ther Iron,Ca,Fa & Min 1 Tablet) 1 tab PO DAILY [facility] Last Admin: 04/26/22 08:56 Dose: 1 tab Labetalol HCl (Labetalol 5 Mg/Ml Ml) 0 mg IV Q2HP PRN PRN Reason: Hypertension Lorazepam (Lorazepam 2 Mg/Ml Vial) 0 mg IV UD PRN; Protocol PRN Reason: Alcohol Withdrawal/Assess CIWA Metoprolol Tartrate (Metoprolol Tartrate 5 Mg/5 Ml Vial) 5 mg IV Q2HP PRN PRN Reason: Tachyarrhythmias HR>110 Mirtazapine (Mirtazapine 15 Mg Tablet) 0 mg PO HSP PRN PRN Reason: Insomnia Ondansetron HCl (Ondansetron 4 Mg/2 Ml Vial) 4 mg IV Q4HP PRN PRN Reason: Nausea And Vomiting Pantoprazole Sodium (Pantoprazole 40 Mg Tablet) 40 mg PO QAMAC [facility] Last Admin: 04/26/22 07:46 Dose: 40 mg Polyethylene Glycol (Polyethylene Glycol 3350 17 Gm Packet) 17 gm PO DAILYP PRN PRN Reason: Constipation Last Admin: 04/25/22 12:13 Dose: 17 gm Potassium Chloride (Potassium Chloride 20 Meq Tablet) 40 meq PO UD PRN PRN Reason: Potssium is 3-3.5 Potassium Chloride (Potassium Chloride 20 Meq Tablet) 40 meq PO UD PRN PRN Reason: Potassium < 3 Senna (Sennosides 1 Tablet) 2 tab PO DAILYP PRN PRN Reason: Constipation Last Admin: 04/26/22 07:46 Dose: 2 tab Sodium Chloride (0.9 % Sodium Chloride 10 Ml Syringe) 10 ml IV Q8 [facility] Last Admin: 04/27/22 04:19 Dose: 10 ml A/P Narrative A/P Narrative: 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
[2022-04-27] MEDS: PANTOPRAZOLE 40 MG TABLET PO SCH (07:38)
[2022-04-27] MEDS: CARVEDILOL 12.5 MG TABLET PO SCH ×2 (07:38→17:24)
[2022-04-27] MEDS: FOLIC ACID 1 MG TABLET PO SCH (08:25)
[2022-04-27] MEDS: MULTIVIT,THER IRON,CA,FA & MIN 1 TABLET PO SCH (08:25)
[2022-04-27] MEDS: APIXABAN 5 MG TABLET PO SCH ×2 (08:26→21:28)
[2022-04-27] MEDS: GABAPENTIN 300 MG CAPSULE PO SCH ×2 (08:26→21:28)
[2022-04-27] MEDS: DOCUSATE SODIUM 100 MG CAPSULE PO SCH ×2 (08:26→21:28)
[2022-04-27] MEDS: ATORVASTATIN 20 MG TABLET PO SCH (21:28)
[2022-04-27] MEDS: SENNOSIDES 1 TABLET PO PRN (21:29)
[2022-04-27] MEDS: LORazepam 2 MG/ML VIAL IV PRN (23:36)
[2022-04-28] MEDS: LORazepam 2 MG/ML VIAL IV PRN (02:16)
[2022-04-28] MEDS: 0.9 % SODIUM CHLORIDE 10 ML SYRINGE IV SCH ×2 (02:22→05:19)
--- NOTE | 2022-04-28 07:26 | Internal Med Progress Note ---
SUBJECTIVE Subjective Patient information: Note initiated : 04/28/22 at 7:24 am Service Date, if different from initiated Date: [] Patient: José Manuel Centeno 71 y/o M admitted on 04/24/22 for Fall/Weakness. Chief Complaint: [] Interval history: History of present illness: Mr. Centeno is a 71 year old M Presents to the ED after falling several times. Patient was seen by her primary care physician to establish care and per the patient and 's complaint he had left-sided weakness which has been going on for about a year but progressing. When asking why he is here he says left-sided weakness left leg more than arm. He has fallen several times in the past couple days which is the reason was brought him in. There is also report of facial drooping but on examination he does not have any drooping and he does not recall having any drooping. On physical examination appears he has symmetrical strength bilaterally, weak bilaterally but symmetrical. Yes Tobacco tell if there is weakness I said no noticeable weakness on exam. And then I asked him about whether he felt actual focal weakness or did he feel like he was falling because he had balance issues and he said it was related more to balance issues. I stood him up at bedside and held his hands. Asked if I let go of his hands while standing would he be able to stand on his own he said he would likely fall backwards. I gradually let go but he quickly grabbed my hands. I sat him back down in bed. Patient says he shuffles when he walks at home. Get the sense of confabulation at times and of note on hospitalization last year there is concern for Warnicke Korsakoff syndrome. Patient is a chronic alcohol abuser and typically would drinks 1/5 of whiskey daily but he says he is down to 8 ounces of Chardonnay a day. States last drink was couple days ago and refuses a beer for any withdrawal symptoms and denies any withdrawal symptoms. He was scheduled for an MRI of the brain tomorrow morning by his PCP. CT head noncontrast in the ED today showed mild atrophy and chronic ischemic changes but no focal pathology. 04/25 No overnight event or new complaints. MRI shows no acute pathology or stroke, waiting for official report. Patient reports constipation. 04/26 Patient reports no new complaints. However his urine output decreased overnight. And is tea colored per nursing. Blood pressure and systolic in the 90s overnight although she did have 1 at 8:00 this morning which was 134. Heart rate 59-60s. Decrease Coreg today. 04/27 Patient clearly has short-term memory loss. When I went in the room he said "who are you". Denies any new complaints or overnight events. Blood pressure better with decreased dosing of Coreg. 04/28 Patient said he remembered me when I asked but could not quite remember my name, was able to get the first letter right. No overnight event or new complaints. Review of Systems: denies headache/fever/chills/nausea/vomiting/chest or abdominal pain/cough/dyspnea/diarrhea. Otherwise see above. Constitutional Vitals: Vital Signs Temp Pulse Resp BP Pulse Ox O2 Del Method O2 Flow Rate 98.9 F 64 16 107/59 93 0 04/28/22 02:19 04/28/22 02:19 04/28/22 02:19 04/28/22 02:19 04/28/22 02:19 04/28/22 02:19 04/25/22 20:01 Period Temp Pulse Resp BP Sys/Valencia Pulse Ox O2 Del Method O2 Flow Rate Last 24 Hr 98.4 F-98.9 F 64-71 14-20 107-127/57-72 93-96 Room Air-Room Air Intake and Output 04/27/22 04/28/22 04/28/22 21:59 05:59 13:59 Intake Total 200 Output Total 450 150 200 Balance -450 50 -200 Weight 92.986 kg Intake & Output: Intake & Output 04/27/22 04/28/22 04/28/22 21:59 05:59 13:59 Intake Total 200 Output Total 450 150 200 Balance -450 50 -200 Weight 92.986 kg Intake: Oral 200 Output: Void Amount 450 150 200 Other: Urine Appearance Clear Clear Clear Urine Color Yellow Yellow Dark Yellow Exam: General: Alert, Awake, No acute Distress Eyes/N/T: EOMI, Head/Neck: neck supple, CV: RRR, No murmurs, Pulm: Clear b/l, no wheezing/rhonchi/rales Abd: soft, nontender, +BS x4 Ext: no clubbing/cyanosis/edema Neuro: Alert, moves all extremities, no focal deficits Skin: warm/dry OBJ DATA Labs CBC & Chem 7: 04/25/22 05:00 04/27/22 04:59 Labs: Abnormal Lab Results 04/27/22 04/26/22 04:59 05:07 Carbon Dioxide 21 L Creatinine 1.9 H 2.0 H Calcium 8.0 L 7.7 L Phosphorus 2.4 L Magnesium 2.7 H Direct Bilirubin 0.7 H GGT 417 H AST 63 H Alkaline Phosphatase 135 H Total Protein 5.2 L Albumin 2.4 L Albumin/Globulin Ratio 0.9 L Meds: Medications Acetaminophen (Acetaminophen 325 Mg Tablet) 650 mg PO Q6HP PRN; Protocol PRN Reason: Per Pain Protocol/Fever > 101 Last Admin: 04/27/22 21:29 Dose: 650 mg Albuterol/Ipratropium (Ipratropium/Albuterol 3 Ml Ampul.Neb) 3 ml NEB Q4HP PRN PRN Reason: Shortness Of Breath Apixaban (Apixaban 5 Mg Tablet) 5 mg PO BID [facility] Last Admin: 04/27/22 21:28 Dose: 5 mg Atorvastatin Calcium (Atorvastatin 20 Mg Tablet) 20 mg PO HS [facility] Last Admin: 04/27/22 21:28 Dose: 20 mg Carvedilol (Carvedilol 12.5 Mg Tablet) 12.5 mg PO BIDCC [facility] Last Admin: 04/27/22 17:24 Dose: 12.5 mg Chlordiazepoxide HCl (Chlordiazepoxide 25 Mg Capsule) 25 mg PO UD PRN; Protocol PRN Reason: Alcohol Withdrawal/Assess CIWA Clonidine HCl (Clonidine Hcl 0.1 Mg Tablet) 0.1 mg PO Q4HP PRN PRN Reason: ALC Colchicine (Colchicine 0.6 Mg Capsule) 0.6 mg PO QDP PRN PRN Reason: gout Docusate Sodium (Docusate Sodium 100 Mg Capsule) 100 mg PO BID [facility] Last Admin: 04/27/22 21:28 Dose: 100 mg Folic Acid (Folic Acid 1 Mg Tablet) 5 mg PO DAILY [facility] Last Admin: 04/27/22 08:25 Dose: 5 mg Gabapentin (Gabapentin 300 Mg Capsule) 600 mg PO HS [facility] Last Admin: 04/27/22 21:28 Dose: 600 mg Gabapentin (Gabapentin 300 Mg Capsule) 300 mg PO DAILY [facility] Last Admin: 04/27/22 08:26 Dose: 300 mg Haloperidol Lactate (Haloperidol Lactate 5 Mg/Ml Vial) 0.5 mg IM Q2HP PRN PRN Reason: Alcohol Withdrawal/Assess CIWA Potassium Chloride 40 meq/ (Dextrose) 520 mls @ 130 mls/hr IV UD PRN PRN Reason: Potassium < 3 Magnesium Sulfate (Magnesium Sulfate) 2 gm in 50 mls @ 50 mls/hr IV UD PRN PRN Reason: Magnesium </= 1.6 Iron Carb/Multivit/[employer]/Folic Acid (Multivit,Ther Iron,Ca,Fa & Min 1 Tablet) 1 tab PO DAILY [facility] Last Admin: 04/27/22 08:25 Dose: 1 tab Labetalol HCl (Labetalol 5 Mg/Ml Ml) 0 mg IV Q2HP PRN PRN Reason: Hypertension Lorazepam (Lorazepam 2 Mg/Ml Vial) 0 mg IV UD PRN; Protocol PRN Reason: Alcohol Withdrawal/Assess CIWA Last Admin: 04/28/22 02:16 Dose: 1 mg Metoprolol Tartrate (Metoprolol Tartrate 5 Mg/5 Ml Vial) 5 mg IV Q2HP PRN PRN Reason: Tachyarrhythmias HR>110 Mirtazapine (Mirtazapine 15 Mg Tablet) 0 mg PO HSP PRN PRN Reason: Insomnia Ondansetron HCl (Ondansetron 4 Mg/2 Ml Vial) 4 mg IV Q4HP PRN PRN Reason: Nausea And Vomiting Pantoprazole Sodium (Pantoprazole 40 Mg Tablet) 40 mg PO QAMAC [facility] Last Admin: 04/27/22 07:38 Dose: 40 mg Polyethylene Glycol (Polyethylene Glycol 3350 17 Gm Packet) 17 gm PO DAILYP PRN PRN Reason: Constipation Last Admin: 04/25/22 12:13 Dose: 17 gm Potassium Chloride (Potassium Chloride 20 Meq Tablet) 40 meq PO UD PRN PRN Reason: Potssium is 3-3.5 Potassium Chloride (Potassium Chloride 20 Meq Tablet) 40 meq PO UD PRN PRN Reason: Potassium < 3 Senna (Sennosides 1 Tablet) 2 tab PO DAILYP PRN PRN Reason: Constipation Last Admin: 04/27/22 21:29 Dose: 2 tab Sodium Chloride (0.9 % Sodium Chloride 10 Ml Syringe) 10 ml IV Q8 [facility] Last Admin: 04/28/22 05:19 Dose: Not Given A/P Narrative A/P Narrative: A: *Generalized weakness/deconditioning/debility/falling and ataxia: initial concern for CVA -MRI brain no acute CVA *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 dementia: *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
[2022-04-28] MEDS: PANTOPRAZOLE 40 MG TABLET PO SCH (08:08)
[2022-04-28] MEDS: FOLIC ACID 1 MG TABLET PO SCH (08:08)
[2022-04-28] MEDS: MULTIVIT,THER IRON,CA,FA & MIN 1 TABLET PO SCH (08:08)
[2022-04-28] MEDS: APIXABAN 5 MG TABLET PO SCH (08:08)
[2022-04-28] MEDS: DOCUSATE SODIUM 100 MG CAPSULE PO SCH (08:08)
[2022-04-28] MEDS: CARVEDILOL 12.5 MG TABLET PO SCH (08:09)
[2022-04-28] MEDS: GABAPENTIN 300 MG CAPSULE PO SCH (08:09)
--- NOTE | 2022-04-28 12:39 | Discharge Summary ---
Discharge Provider Provider IMPORTANT FOLLOW-UP INFORMATION FOR PCP: Patient information: Note initiated : 04/28/22 at 12:38 pm Service Date, if different from initiated Date: [] Patient: José Manuel Centeno 71 y/o M admitted on 04/24/22 for Fall/Weakness. Chief Complaint: [] Date of admission: 04/24/22 20:34 Discharge date: 04/28/22 Primary care physician: Arpan Pro DO Attending physician on admission: [place] Consults: 04/24/22 Consult to Physician [CONS] Stat Comment: Consulting Provider: [place] Reason For Exam: Physician to Consult 04/28/22 12:08 Consult to Physician [CONS] Routine Comment: snf referral Consulting Provider: [facility] Reason For Exam: Physician to Consult Attending physician on discharge: Chi Bernabe Pui COURSE Hospital Course Hospital course: Mr. Centeno is a 71 year old M Presents to the ED after falling several times. Patient was seen by her primary care physician to establish care and per the patient and 's complaint he had left-sided weakness which has been going on for about a year but progressing. When asking why he is here he says left-sided weakness left leg more than arm. He has fallen several times in the past couple days which is the reason was brought him in. There is also report of facial drooping but on examination he does not have any drooping and he does not recall having any drooping. On physical examination appears he has symmetrical strength bilaterally, weak bilaterally but symmetrical. Yes Tobacco tell if there is weakness I said no noticeable weakness on exam. And then I asked him about whether he felt actual focal weakness or did he feel like he was falling because he had balance issues and he said it was related more to balance issues. I stood him up at bedside and held his hands. Asked if I let go of his hands while standing would he be able to stand on his own he said he would likely fall backwards. I gradually let go but he quickly grabbed my hands. I sat him back down in bed. Patient says he shuffles when he walks at home. Get the sense of confabulation at times and of note on hospitalization last year there is concern for Warnicke Korsakoff syndrome. Patient is a chronic alcohol abuser and typically would drinks 1/5 of whiskey daily but he says he is down to 8 ounces of Chardonnay a day. States last drink was couple days ago and refuses a beer for any withdrawal symptoms and denies any withdrawal symptoms. He was scheduled for an MRI of the brain tomorrow morning by his PCP. CT head noncontrast in the ED today showed mild atrophy and chronic ischemic changes but no focal pathology. 04/25 No overnight event or new complaints. MRI shows no acute pathology or stroke, waiting for official report. Patient reports constipation. 04/26 Patient reports no new complaints. However his urine output decreased overnight. And is tea colored per nursing. Blood pressure and systolic in the 90s overnight although she did have 1 at 8:00 this morning which was 134. Heart rate 59-60s. Decrease Coreg today. 04/27 Patient clearly has short-term memory loss. When I went in the room he said "who are you". Denies any new complaints or overnight events. Blood pressure better with decreased dosing of Coreg. 04/28 Patient said he remembered me when I asked but could not quite remember my name, was able to get the first letter right. No overnight event or new complaints. Discharged to SNF. Discharge diagnosis: failure to thrive, dementia Time Spent with Patient Time attestation: Total time spent providing and/or coordinating discharge services: Time spent: Less than 30 minutes EXAM Constitutional Vitals: Temp Pulse Resp BP Pulse Ox O2 Del Method O2 Flow Rate 36.2 C 63 16 121/71 96 0 04/28/22 07:00 04/28/22 07:00 04/28/22 07:00 04/28/22 07:00 04/28/22 07:00 04/28/22 07:00 04/25/22 20:01 General appearance: cooperative and no acute distress Head Head exam: Present atraumatic and normocephalic Eye Eye exam: Present EOMI and PERRL ENT ENT exam: Present mucous membranes moist, normal exam and normal external ear e xam Neck Neck exam: Present normal inspection; Absent lymphadenopathy, tenderness or thyromegaly Respiratory Respiratory exam: Absent accessory muscle use, respiratory distress or wheezes Cardiovascular Cardiovascular exam: Present normal rate and rhythm; Absent JVD GI/Abdominal GI/Abdominal exam: Present normal bowel sounds and soft; Absent organomegaly or tenderness Rectal Rectal exam: Present deferred Extremities Exam Extremities exam: Present full ROM, normal capillary refill and normal inspection; Absent tenderness Neurological Exam Neurological exam: Present alert, CN II-XII intact and oriented X3; Absent motor sensory deficit Psychiatric Psychiatric exam: Present normal affect and normal mood; Absent anxious or depressed Skin Skin exam: Present dry and intact Discharge Plan Patient/Caregiver Discharge Instructions Activity: increase activity as tolerated Diet: Regular Diet Prescriptions: New carvedilol 12.5 mg Tablet 12.5 mg PO BIDCC 30 Days Qty: 60 0RF Continued mirtazapine [Remeron] 15 mg tablet See Rx Instructions .ROUTE .COMPLEX Qty: 15 0RF Rx Instructions: 1-2 tabs po qhs prn difficulty sleeping; Eliquis 5 mg tablet 5 mg PO BID omeprazole 20 mg capsule,delayed release(DR/EC) 20 mg PO QDAY colchicine 0.6 mg tablet 0.6 mg PO QDAY PRN (Reason: gout) gabapentin 300 mg capsule 300 mg PO DAILY Label Comments: 300 in AM, 600 in PM Rx Instructions: 1 tab in afternoon and 2 tab HS rosuvastatin 10 MG tablet 10 mg PO HS diltiazem HCl 60 mg Capsule,Extended Release 12 Hr 60 mg PO DAILY gabapentin 300 mg capsule 600 mg PO HS Discontinued carvedilol 25 mg tablet 25 mg PO BID Rx Instructions: must administer with a meal/food lisinopril 20 mg tablet 20 mg PO QDAY Follow Up Plan Follow up with: Arpan Pro DO [Primary Care Provider] - Patient Disposition: Xfer SNF Rehab Potential: Fair I certify that the patient requires SNF services: Yes Overall status at discharge: patient is progressing back to baseline Discharge Orders: Discharge Order (Routine); Ordered 04/28/22 Ordered By: Sheldon Guerrero
== END 2022-04-28 14:10 | DRG 641 ==
LOC: ED 16:07 → ICU 20:34 → MEDSUR 04-26 15:24
PROVIDERS: ADMIT Internal Medicine; ATTEND Internal Medicine